=== PATIENT | female | born 1960 | race Caucasian/White ===

== ENCOUNTER 2018-07-22 19:17 | Emergency (ER) | payer OTHER ==
[2018-07-22] MEDS ORDERED: solu-MEDROL 125 MG IV ONE (19:33)
[2018-07-22] MEDS ORDERED: DUONEB 0.5-3 MG/3 ml Neb IH ONE ×2 (19:33→19:45)
[2018-07-22] MEDS ORDERED: solu-MEDROL 125 MG ONE (19:40)
[2018-07-22 19:57] LABS: Hematocrit 30.2 % (35-47); Hemoglobin 10.4 gm/dl (12.0-16.0); Mean Cell Volume 101.7 fl (78-100); Mean Corpuscular Hgb Concent. 34.4 g/dl (32-36); Mean Platelet Volume 9.3 fl (6-9.5); Platelet Count 251 K/mm3 (150-450); Red Blood Count 2.97 M/mm3 (4.1-5.4); Red Cell Distribution Width 12.6 % (11.5-14.0); White Blood Count 14.8 K/mm3 (4.0-10.5)
[2018-07-22 20:10] LABS: Appearance CLEAR (CLEAR); Bilirubin NEGATIVE (NEGATIVE); Blood NEGATIVE Ery/ul (0-5); Glucose NEGATIVE (NEGATIVE); Ketones NEGATIVE (NEGATIVE); Leukocyte Esterase NEGATIVE (NEGATIVE); Nitrite NEGATIVE (NEGATIVE); Protein,Urine Dip NEGATIVE (Negative); Specific Gravity 1.012 (1.005-1.025); Urobilinogen NEGATIVE mg/dL (0-1)
[2018-07-22 20:23] LABS: ALBUMIN 2.6 g/dL (3.5-5.0); ALKALINE PHOSPHATASE 89 U/L (38-126); ANION GAP 15.6 MEQ/L (5-15); BLOOD UREA NITROGEN 12 mg/dL (7-17); CHLORIDE 85 mmol/L (98-107); Calcium 8.1 mg/dL (8.4-10.2); Carbon Dioxide 26 mmol/L (22-30); Creatinine 1 0.29 mg/dL (0.52-1.04); Glucose 84 mg/dL (74-106); NT PRO BNP 1480 pg/mL (0-900); SGOT/AST 24 U/L (14-36); SGPT/ALT 16 U/L (0-35); SODIUM 123 mmol/L (137-145); Total Protein 6.1 g/dL (6.3-8.2)
[2018-07-22] MEDS ORDERED: Lasix 40 MG/4 ML IV ONE (20:33)
[2018-07-22] MEDS ORDERED: Klor Con 10 MEQ PO ONE ×2 (20:33→20:37)
[2018-07-22] MEDS ORDERED: Lasix 40 MG/4 ML ONE (20:37)
[2018-07-22] MEDS ORDERED: PROVENTIL 2.5 MG/3 ML NEB IH ONE ×2 (22:36→22:43)
[2018-07-22 23:31] VITALS: BP 142/79; O2SAT 95
[2018-07-22 23:48] VITALS: PULSE 92
[2018-07-23] MEDS ORDERED: LEVOFLOXACIN 750MG/150ML D5W 750 MG/150 ML BAG IV STA (01:00)
[2018-07-23] MEDS ORDERED: LEVOFLOXACIN 750MG/150ML D5W 750 MG/150 ML BAG IV ONE (01:04)
--- NOTE | 2018-07-23 01:25 | ERPHSYRPT ---
- History of Present Illness Source: patient Exam Limitations: no limitations Patient Subjective Stated Complaint: Pt c/o swelling and redness to RLE for "a couple days", denies fever. Denies sob/coughing prior to EMS giving pt duoneb after finding her to spo2 at 88% on room air. Pt states after tx she nows feels "like she needs to cough something up" Triage Nursing Assessment: pink/warm/dry, resp easy occassional wet cough noted , gait not observed at this time, a&o4, pitting edema to BLE noted with healing bruises. Redness noted to kia maza areas. Physician History: Pt is a 58 y/o female that presented to the ED with EMT, as her boyfriend called them. Pt denies complains, and states, no use of O2 at home, no complains. She states, her boyfriend states, her legs are swollen and is just "too concerned about me". Timing/Duration: today Activities at Onset: none Severity of Dyspnea-Max: moderate Severity of Dyspnea-Current: moderate Modifying Factors: Improves With: nothing Associated Symptoms: edema, loss of appetite, wheezing, leg swelling Allergies/Adverse Reactions: shellfish derived Allergy (Severe, Verified 07/22/18 23:51) Penicillins Allergy (Verified 07/22/18 19:18) Swelling strawberry Allergy (Verified 07/22/18 23:51) Hx Tetanus, Diphtheria Vaccination/Date Given: No Hx Influenza Vaccination/Date Given: No Hx Pneumococcal Vaccination/Date Given: No Immunizations Up to Date: No - Review of Systems Constitutional: Lethargy, Weakness, Weight Loss Eyes: No Symptoms Ears, Nose, & Throat: No Symptoms Respiratory: Cyanosis, Dyspnea, Dyspnea on Exertion (FERRARI), Wheezing Cardiac: Edema Abdominal/Gastrointestinal: No Abdominal Pain, No Nausea, No Vomiting, No Diarrhea Genitourinary Symptoms: No Dysuria Musculoskeletal: No Back Pain, No Neck Pain Neurological: No Dizziness, No Focal Weakness, No Sensory Changes - Past Medical History Pertinent Past Medical History: Yes Cardiac History: Hypertension Respiratory History: COPD - Past Surgical History Past Surgical History: Yes - Social History Smoking Status: Current every day smoker Exposure to second hand smoke: Yes Drug Use: none Patient Lives Alone: No - Female History Hx Now: No - Nursing Vital Signs Nursing Vital Signs: Initial Vital Signs Temperature 98.4 F 07/22/18 19:21 Pulse Rate 96 H 07/22/18 19:21 Respiratory Rate 18 07/22/18 19:21 Blood Pressure 151/85 07/22/18 19:21 O2 Sat by Pulse Oximetry 94 L 07/22/18 19:21 Pain Scale Pain Intensity 0 - Physical Exam General Appearance: moderate distress, lethargy, cachetic Eye Exam: PERRL/EOMI Ears, Nose, Throat Exam: hearing grossly normal Neck Exam: normal inspection, supple Respiratory Exam: respiratory distress, wheezing Cardiovascular/Chest Exam: edema Abdominal/Gastrointestinal Exam: soft, No tenderness, No distention, No mass Extremity Exam: pedal edema, slow capillary refill, swelling Neurologic Exam: alert, oriented x 3, cooperative, color television console monitor II-XII nml as tested, sensation nml, No motor deficits Skin Exam: ecchymosis (secondary to previous fall) SpO2 Interpretation: hypoxic SpO2: 95 O2 Delivery: Nasal Cannula - Course Nursing assessment & vital signs reviewed: Yes EKG Interpreted by Me: RATE ([id number]) Rhythm Strip: 1st degree block - CT Exams Chest CT Interpretation: Tele-radiologist Report (R mainstem bronchus is occluded. L lower lobe bronchus is occluded. RLL consalidation) - Radiology Ultrasound Exam Left Venous Lower Extremity Ultrasound: Other (No DVT) Right Venous Lower Extremity Ultrasound: Other (No DVT) Left Arterial Lower Extremity Ultrasound: Other (Normal RENEE flow) Right Arterial Lower Extremity Ultrasound: Other (Normal RENEE flow.) Ordered Tests: Active Orders 24 hr Category Date Time Status Mds Nurse STAT Care 07/22/18 19:31 Active EKG-ER Only STAT Care 07/22/18 19:31 Active Fontaine [Catheter-[place] Fontaine] STAT Care 07/22/18 19:47 Active IV Insertion STAT Care 07/22/18 19:31 Active Oxygen-ED Only Nasal Cannula 2 lpm Care 07/22/18 19:31 Active RENEE/LIMB PRESSURES BILATERAL [US] Stat Exams 07/22/18 23:26 Taken CHEST WITHOUT CONTRAST [CT] Stat Exams 07/22/18 23:55 Taken VENOUS BILATERAL EXTREMITY [US] Stat Exams 07/22/18 23:27 Taken CBC W DIFF Stat Lab 07/22/18 19:56 Completed CMP Stat Lab 07/22/18 19:56 Completed D-DIMER QUANTITATION Stat Lab 07/22/18 19:56 Completed Lactic Acid Stat Lab 07/23/18 01:13 Ordered Manual Differential NC Stat Lab 07/22/18 19:56 Completed NT PRO BNP Stat Lab 07/22/18 19:56 Completed UA W/RFX UR CULTURE Stat Lab 07/22/18 19:56 Completed Respiratory Therapy Assessment DAILY RT 07/22/18 19:51 Active Medication Summary Generic Name Dose Route Start Last Admin Trade Name Perryq PRN Reason Stop Dose Admin Levofloxacin/Dextrose 750 mg in 150 mls @ 100 mls/hr 07/23/18 01:00 07/23/18 01:05 Levofloxacin 750mg/150ml D5w IV 07/23/18 02:29 100 mls/hr STAT STA Administration Discontinued Medications Generic Name Dose Route Start Last Admin Trade Name Freq PRN Reason Stop Dose Admin Albuterol Sulfate 2.5 mg 07/22/18 22:36 07/22/18 22:46 Proventil 2.5 Mg/3 Ml Neb IH 07/22/18 22:37 2.5 mg STAT ONE Administration Albuterol Sulfate Confirm 07/22/18 22:43 Proventil 2.5 Mg/3 Ml Neb Administered 07/22/18 22:44 Dose 2.5 mg IH .STK-MED ONE Albuterol/Ipratropium 3 ml 07/22/18 19:33 07/22/18 19:46 Duoneb 0.5-3 Mg/3 Ml Neb IH 07/22/18 19:34 3 ml STAT ONE Administration Albuterol/Ipratropium Confirm 07/22/18 19:45 Duoneb 0.5-3 Mg/3 Ml Neb Administered 07/22/18 19:46 Dose 3 ml IH .STK-MED ONE Furosemide 40 mg 07/22/18 20:33 07/22/18 20:38 Lasix 40 Mg/4 Ml IV 07/22/18 20:34 40 mg STAT ONE Administration Furosemide Confirm 07/22/18 20:37 Lasix 40 Mg/4 Ml Administered 07/22/18 20:38 Dose 40 mg .ROUTE .STK-MED ONE Levofloxacin/Dextrose Confirm 07/23/18 01:04 Levofloxacin 750mg/150ml D5w Administered 07/23/18 01:05 Dose 750 mg in 150 mls @ ud IV .STK-MED ONE Methylprednisolone Sodium Succinate 125 mg 07/22/18 19:33 07/22/18 19:42 Solu-Medrol 125 Mg IV 07/22/18 19:34 125 mg STAT ONE Administration Methylprednisolone Sodium Succinate Confirm 07/22/18 19:40 Solu-Medrol 125 Mg Administered 07/22/18 19:41 Dose 125 mg .ROUTE .STK-MED ONE Potassium Chloride 40 meq 07/22/18 20:33 07/22/18 20:38 Klor Con 10 Meq PO 07/22/18 20:34 40 meq STAT ONE Administration Potassium Chloride Confirm 07/22/18 20:37 Klor Con 10 Meq Administered 07/22/18 20:38 Dose 40 meq PO .STK-MED ONE Lab/Rad Data: Laboratory Result Diagrams 07/22/18 19:56 07/22/18 19:56 Laboratory Results 07/22/18 07/22/18 07/22/18 Range/Units 19:56 19:56 19:56 WBC (4.0-10.5) K/mm3 RBC (4.1-5.4) M/mm3 Hgb (12.0-16.0) gm/dl Hct (35-47) % MCV (78-100) fl MCH (26-32) pg MCHC (32-36) g/dl RDW (11.5-14.0) % Plt Count (150-450) K/mm3 MPV (6-9.5) fl D-Dimer 1306 H* (215-500) ng/mL Sodium 123 L (137-145) mmol/L Potassium 3.0 L (3.5-5.1) mmol/L Chloride 85 L (98-107) mmol/L Carbon Dioxide 26 (22-30) mmol/L Anion Gap 15.6 H (5-15) MEQ/L BUN 12 (7-17) mg/dL Creatinine 0.29 L (0.52-1.04) mg/dL Estimated GFR > 60.0 ML/MIN Glucose 84 (74-106) mg/dL Calcium 8.1 L (8.4-10.2) mg/dL Total Bilirubin 0.50 (0.2-1.3) mg/dL AST 24 (14-36) U/L ALT 16 (0-35) U/L Alkaline Phosphatase 89 (38-126) U/L NT-Pro-B Natriuret Pep 1480 H (0-900) pg/mL Serum Total Protein 6.1 L (6.3-8.2) g/dL Albumin 2.6 L (3.5-5.0) g/dL Urine Color YELLOW (YELLOW) Urine Appearance CLEAR (CLEAR) Urine pH 5.0 (5-6) Ur Specific [place] 1.012 (1.005-1.025) Urine Protein NEGATIVE (Negative) Urine Ketones NEGATIVE (NEGATIVE) Urine Blood NEGATIVE (0-5) Leonardo/ul Urine Nitrite NEGATIVE (NEGATIVE) Urine Bilirubin NEGATIVE (NEGATIVE) Urine Urobilinogen NEGATIVE (0-1) mg/dL Ur Leukocyte Esterase NEGATIVE (NEGATIVE) Urine WBC (Auto) NONE (0-5) /HPF Urine RBC (Auto) NONE (0-2) /HPF U Epithel Cells (Auto) NONE (FEW) /HPF Urine Bacteria (Auto) NONE (NEGATIVE) /HPF Urine Culture Reflexed NO (NO) Urine Glucose NEGATIVE (NEGATIVE) mg/dL 07/22/18 Range/Units 19:56 WBC 14.8 H (4.0-10.5) K/mm3 RBC 2.97 L (4.1-5.4) M/mm3 Hgb 10.4 L (12.0-16.0) gm/dl Hct 30.2 L (35-47) % MCV 101.7 H (78-100) fl MCH 35.0 H (26-32) pg MCHC 34.4 (32-36) g/dl RDW 12.6 (11.5-14.0) % Plt Count 251 (150-450) K/mm3 MPV 9.3 (6-9.5) fl D-Dimer (215-500) ng/mL Sodium (137-145) mmol/L Potassium (3.5-5.1) mmol/L Chloride (98-107) mmol/L Carbon Dioxide (22-30) mmol/L Anion Gap (5-15) MEQ/L BUN (7-17) mg/dL Creatinine (0.52-1.04) mg/dL Estimated GFR ML/MIN Glucose (74-106) mg/dL Calcium (8.4-10.2) mg/dL Total Bilirubin (0.2-1.3) mg/dL AST (14-36) U/L ALT (0-35) U/L Alkaline Phosphatase (38-126) U/L NT-Pro-B Natriuret Pep (0-900) pg/mL Serum Total Protein (6.3-8.2) g/dL Albumin (3.5-5.0) g/dL Urine Color (YELLOW) Urine Appearance (CLEAR) Urine pH (5-6) Ur Specific [place] (1.005-1.025) Urine Protein (Negative) Urine Ketones (NEGATIVE) Urine Blood (0-5) Leonardo/ul Urine Nitrite (NEGATIVE) Urine Bilirubin (NEGATIVE) Urine Urobilinogen (0-1) mg/dL Ur Leukocyte Esterase (NEGATIVE) Urine WBC (Auto) (0-5) /HPF Urine RBC (Auto) (0-2) /HPF U Epithel Cells (Auto) (FEW) /HPF Urine Bacteria (Auto) (NEGATIVE) /HPF Urine Culture Reflexed (NO) Urine Glucose (NEGATIVE) mg/dL - Progress Progress: improved Air Movement: fair Progress Note: 07/23/18 01:29 Pt was evaluated. Lasix IV was given for edema and elevated BNP. Solu Medrol and Duo nebs were given for wheezing. Levaquin IV was given. Pt was placed on O2 NC for hypoxia. D Dimer was elevated, but could not do PE study, secondary to shellfish allergy. CT showed occluded b/l bronchus. Might be mass. Post obstructive PNA is a possibility. Dr. [facility]. Discussed with : Seth Will see patient in: other (Transfer to [facility]. Dr Raya is accepting.) - Departure Departure Disposition: Transfer Clinical Impression: COPD with hypoxia Condition: Fair Critical Care Time: No Referrals: SHANDA ESCALONA [Primary Care Provider] - Instructions: Chronic Obstructive Pulmonary Disease Additional Instructions: Pt will be transferred to [facility]. Dr Raya is accepting.
[2018-07-23 03:32] LABS: BAND 1 % (0.0-2.0); Eosinophil 1 % (0.00-3.0); Lymphocytes 19 % (24-44); Monocyte 1 % (0.0-12.0); Myelocyte 1 %; Neutrophils 76 % (36.0-66.0); Platelet Estimate NORMAL (NORMAL); Promyelocyte 1 %; Total Cells Counted 100
--- NOTE | 2018-07-23 08:44 | XRAY ---
Indication: Bilateral leg edema. Two-dimensional sonogram and color Doppler imaging of the major venous vessels of left and right leg was performed. Comparison: None No thrombus seen in the examined deep venous vessels of the left and right leg including greater saphenous veins. Veins demonstrate normal compressibility. Venous waveforms are normal with and without augmentation. Incidental 5.9 x 1.4 x 2.5 cm right and 3.5 x 1.0 x 2.5 cm left Villarreal's cysts. Impression: 1. Left and right legs negative for DVT. 2. Incidental bilateral Villarreal's cysts. Comment: Preliminary report was given.
--- NOTE | 2018-07-23 08:46 | XRAY ---
Indication: Cool extremities. Bilateral ankle brachial index exam performed. Comparison: None Right arm brachial pressure is 130. Right ankle pressure is 130. Ankle-brachial index is 1.0, normal. Left arm brachial pressure is 129. Left ankle pressure is 142. Ankle brachial index is 1.09, normal. Impression: Left and right ankle brachial indices are normal. Comment: Preliminary report was given.
--- NOTE | 2018-07-23 08:56 | XRAY ---
Indication: Short of breath. COPD. Multiple contiguous axial images obtained through the chest without contrast as ordered. Comparison: None Right lower and left lower lobe bronchi are occluded with near complete right lower lobe consolidation, probable postobstructive atelectasis. Mass not completely excluded. Mild right middle, lingula, and left lower lobe subsegmental atelectasis/scarring. Small right effusion and right lower lobe calcified granuloma. Small patchy left upper lobe airspace opacity anteriorly. Heart is not enlarged. Aorta is mildly arteriosclerotic without aneurysmal dilatation. A few mediastinal and right perihilar calcified nodes. Small hiatal hernia. Bony thorax demonstrates osteopenia and mild multilevel degenerative spondylosis. Limited upper abdomen demonstrates fatty liver and tiny calcified splenic granulomas. Impression: 1. Left and right lower lobe bronchi occlusion. Rule out mucus plugging versus endobronchial masses. 2. Near complete right lower lobe consolidation, probable postobstructive atelectasis. Lung mass not completely excluded. Also small right effusion. 3. Patchy left upper lobe airspace disease. 4. Mild right middle lobe, lingula, and left lower lobe subsegmental atelectasis/scarring. 5. Incidental fatty liver, small hiatal hernia, and evidence for old granulomatous disease. Comment: Preliminary interpretation was made by [facility]. No critical discrepancy. CTDI 9.79
== END 2018-07-23 02:55 | disposition short-term general hospital (02) ==
LOC: ED 19:17
DX: J44.9 Chronic obstructive pulmonary disease, unspecified (principal); R09.02 Hypoxemia; I10 Essential (primary) hypertension
CPT/HCPCS: 36000; 36415; 51702; 71250; 80053; 81001; 83605; 83880; 85025; 85379; 93005; 93041; 93922; 93970; 94640; 96365; 96374; 96375; 99285; J1940; J1956; J2930; J7609; A9270-GY

== ENCOUNTER 2018-08-12 10:52 | Inpatient (IN) | payer OTHER ==
[2018-08-12] MEDS ORDERED: Colace 100 MG PO PRN (11:51)
[2018-08-12] MEDS ORDERED: Sodium Chloride 0.9% 10 ML FLUSH Syringe IV PRN (12:00)
[2018-08-12 12:15] LABS: A-aADO2 83; ABG HEMOGLOBIN 19.8; ARTERIAL BLD GAS O2 SATURATION 97.5 % (95-100); ARTERIAL BLOOD GAS BASE EXCESS 0.1 (-2.0-2.0); ARTERIAL BLOOD GAS FIO2 28 %; ARTERIAL BLOOD GAS PCO2 32 mmHg (35-45); ARTERIAL BLOOD GAS PO2 77 mmHg (75-100); ARTERIAL BLOOD GAS pH 7.46 (7.35-7.45); CARBOXYHEMOGLOBIN 3.2 % THgb (0.0-6.9); HCO3- 22.8 (22-28); HGB O2 SAT 93.9 g/dF (94-100); Lactic Acid 1.1 (0.4-2.0); Methhemoglobin 0.5 % (1.4-1.5); paO2 pAO1 0.48
[2018-08-12 12:16] LABS: ABG POTASSIUM 2.5 (3.5-5.1); ABG SITE LEFT RADIAL; ALLEN TEST OK? Yes
[2018-08-12 12:51] LABS: BASOPHIL % 0.1 % (0.0-0.4); Basophil (Absolute #) 0.02 (0-0.4); Eosinophil % 0.6 % (0.00-5.0); Eosinophil (Absolute #) 0.08 (0-0.5); Granulocyte Absolute (ANC) 11.77 (1.4-6.9); Granulocytes % 85.6 % (36.0-66.0); Hemoglobin 9.8 gm/dl (12.0-16.0); Lymphocyte (Absolute #) 0.84 (1.0-4.6); Lymphocytes % 6.1 % (24.0-44.0); Mean Cell Volume 97.9 fl (78-100); Mean Platelet Volume 9.8 fl (6-9.5); Monocytes % 7.6 % (0.0-12.0); Platelet Count 352 K/mm3 (150-450); Red Blood Count 2.86 M/mm3 (4.1-5.4); Red Cell Distribution Width 12.9 % (11.5-14.0); White Blood Count 13.8 K/mm3 (4.0-10.5)
--- NOTE | 2018-08-12 12:56 | XRAY ---
Indication: Hypoxia. Lung mass. Comparison: None PA/lateral chest hyperinflated with moderate right costophrenic angle blunting, right base masslike opacity, and right middle lobe subsegmental atelectasis/scarring. CT chest with contrast may yield further information. Remaining heart and left lung unremarkable. Bony thorax intact.
[2018-08-12 12:58] LABS: Mean Corpuscular Hemoglobin 34.2 pg (26-32)
[2018-08-12] MEDS: Sodium Chloride 0.9% 1000 ML 1,000 ML IV SCH (12:58)
[2018-08-12 13:16] LABS: ALBUMIN 2.6 g/dL (3.5-5.0); ALKALINE PHOSPHATASE 111 U/L (38-126); ANION GAP 15.4 MEQ/L (5-15); BLOOD UREA NITROGEN 12 mg/dL (7-17); CHLORIDE 88 mmol/L (98-107); Calcium 7.9 mg/dL (8.4-10.2); Carbon Dioxide 24 mmol/L (22-30); Creatinine 1 0.45 mg/dL (0.52-1.04); Glucose 79 mg/dL (74-106); NT PRO BNP 4600 pg/mL (0-900); SGOT/AST 42 U/L (14-36); SGPT/ALT 19 U/L (0-35); SODIUM 125 mmol/L (137-145); Total Protein 6.4 g/dL (6.3-8.2)
[2018-08-12 13:19] LABS: Potassium 2.8 mmol/L (3.5-5.1)
[2018-08-12] MEDS: POTASSIUM CHLORIDE 20 mEq IN WATER 100ML 20 MEQ/100 ML BAG IV SCH ×2 (13:19→16:33)
[2018-08-12] MEDS ORDERED: Magnesium Sulfate 1 GM/2 ML VIAL IV ONE (14:10)
[2018-08-12] MEDS: Sodium Chloride 0.9% 10 ML FLUSH Syringe IV SCH ×2 (14:23→22:06)
[2018-08-12] MEDS ORDERED: Magnesium Sulfate 1 GM/2 ML VIAL*** 2 GM in Sodium Chloride 0.9% 100 ML IVPB 100 ML IV ONE (14:30)
[2018-08-12] MEDS ORDERED: Ventolin Hfa MDI IH PRN (14:53)
[2018-08-12] MEDS ORDERED: PROVENTIL COMMON CANISTER IH PRN (14:56)
[2018-08-12] MEDS: DUONEB 0.5-3 MG/3 ml Neb IH SCH ×3 (15:04→23:19)
[2018-08-12] MEDS: Levofloxacin 500MG/100ML D5W 500 MG/100 ML BAG IV SCH (16:33)
[2018-08-12] MEDS: Advair Hfa 230/21 Mcg COMMON CANISTER IH SCH (18:45)
[2018-08-12] MEDS: Magnesium 1 Gm / 100 Ml D5W*** 100 ML IV SCH ×2 (23:17→23:51)
[2018-08-13] MEDS: POTASSIUM CHLORIDE 20 mEq IN WATER 100ML 20 MEQ/100 ML BAG IV SCH ×2 (00:32→02:39)
[2018-08-13] MEDS: DUONEB 0.5-3 MG/3 ml Neb IH SCH ×6 (03:28→22:46)
[2018-08-13] MEDS: Sodium Chloride 0.9% 1000 ML 1,000 ML IV SCH ×2 (05:12→17:18)
[2018-08-13] MEDS: Sodium Chloride 0.9% 10 ML FLUSH Syringe IV SCH ×2 (05:12→14:24)
[2018-08-13 06:31] LABS: BASOPHIL % 0.1 % (0.0-0.4); Basophil (Absolute #) 0.01 (0-0.4); Eosinophil % 1.1 % (0.00-5.0); Granulocyte Absolute (ANC) 7.33 (1.4-6.9); Granulocytes % 80.2 % (36.0-66.0); Hematocrit 22.4 % (35-47); Lymphocyte (Absolute #) 0.79 (1.0-4.6); Lymphocytes % 8.7 % (24.0-44.0); Mean Cell Volume 98.7 fl (78-100); Mean Corpuscular Hemoglobin 34.3 pg (26-32); Mean Corpuscular Hgb Concent. 34.8 g/dl (32-36); Mean Platelet Volume 9.3 fl (6-9.5); Monocytes % 9.9 % (0.0-12.0); Platelet Count 306 K/mm3 (150-450); Red Blood Count 2.27 M/mm3 (4.1-5.4); Red Cell Distribution Width 13.1 % (11.5-14.0); White Blood Count 9.1 K/mm3 (4.0-10.5)
[2018-08-13] MEDS ORDERED: Spiriva 18 Mcg/Cap Inhaler IH ONE (06:32)
[2018-08-13] MEDS: Advair Hfa 230/21 Mcg COMMON CANISTER IH SCH ×2 (06:37→19:09)
[2018-08-13] MEDS: Spiriva 18 Mcg/Cap Inhaler IH SCH (06:38)
[2018-08-13 07:03] LABS: Hemoglobin 7.8 gm/dl (12.0-16.0)
[2018-08-13 07:33] LABS: ANION GAP 10.3 MEQ/L (5-15); BLOOD UREA NITROGEN 8 mg/dL (7-17); CHLORIDE 93 mmol/L (98-107); Calcium 7.4 mg/dL (8.4-10.2); Carbon Dioxide 24 mmol/L (22-30); Creatinine 1 0.37 mg/dL (0.52-1.04); Glucose 99 mg/dL (74-106); Potassium 3.4 mmol/L (3.5-5.1); SODIUM 124 mmol/L (137-145)
--- NOTE | 2018-08-13 08:50 | XRAY ---
Indication: Short of breath. Elevated d-dimer. Patient received 5.3 mCi technetium 99 MAA for the perfusion portion of the exam. Patient inhaled 33.6 mCi of aerosolized technetium 99 DTPA for the ventilation portion of the exam. Multi planar images obtained. Comparison: None Perfusion images demonstrates focus of diminished perfusion in the right base. No other perfusion defects. Ventilation images demonstrates corresponding ventilation defect in the right base. No other ventilation defects. Incidental small amount of radiopharmaceutical activity in the GI system. Same day chest radiograph demonstrates right base pleural-parenchymal opacity corresponding to the ventilation defect and diminished perfusion. Impression: Matching right base ventilation defect and diminished perfusion corresponding to the chest radiograph abnormality. PIOPED criteria is low probability for pulmonary embolus.
--- NOTE | 2018-08-13 09:09 | HP ---
HISTORY OF PRESENT ILLNESS: This 58 year-old patient of mine who presented to the clinic complaining of shortness of breath. She had recently been at [facility] after having lung mass found. She was seen by Dr. Jasper Blas there but left sooner than they would have liked. She was hyponatremic there as well. The patient has a history of tobacco use and also alcohol use. She presented to the clinic with her friend, Adam. They reported increasing shortness of breath with exertion, unstable ambulation, weight loss and cough. The patient reports this morning that she has some appetite although she has not eaten much yet. She is interested in seeing a industrial gas fitter to talk about changing her diet. The patient was going to be seen by Dr. Jasper Blas yesterday but she was getting a VQ scan for an elevated D-dimer when he was here to see her and so he plans to see her later in the hospital stay. The patient reports that she feels like her shortness of breath is better. She has been on bed rest. She thinks her cough is better. She is asking about going home. REVIEW OF SYSTEMS: She has had no abdominal pain. No nausea or vomiting. No diarrhea. She had the cough and shortness of breath. No chest pain. No lower extremity edema. MEDICATIONS: Please see the home medication reconciliation form which I have reviewed. ALLERGIES: ADACEL, PENICILLIN, TDAP. SHELLFISH, STRAWBERRY. PAST MEDICAL HISTORY: Asthma, chronic obstructive pulmonary disease, hypertension. Lung mass and pneumonia June 2018. Weight loss June 2018. Alcohol use. PAST SURGICAL HISTORY: Tonsillectomy. Adenoidectomy. SOCIAL HISTORY: She reports to me today that she only smoked a half a pack of cigarettes per day for two years and that she has quit for a few weeks now. Her boyfriend lives with her. She has sisters in [facility] and reports one plans to come see her today. She does not have any children. Alcohol: She reports drinking 0 to 6 beers per day. She denies any history of alcohol withdrawal. FAMILY HISTORY: Noncontributory. PHYSICAL EXAMINATION: VITAL SIGNS: Temperature current 98.7F, temperature max 99.1F, heart rate 84 to 94, respiratory rate 24, blood pressure 112/60, weight 48.4 kg. Oxygen saturation 90% on room air, 92 to 100% on 2 liters nasal cannula. GENERAL: The patient is lying in bed a pleasant talkative lady in no acute distress. She is thin and cachectic. CVS: She has a regular rate and rhythm. No murmurs, gallops or rubs are appreciated. CHEST: Clear to auscultation bilaterally. No crackles or wheezes. Very slight cough, equal breath sounds. ABDOMEN: Soft, nontender, nondistended with normal bowel sounds. EXTREMITIES: No clubbing, cyanosis or edema. LABORATORY DATA AND TESTS: Her white blood cell count was 13,800 on admission, 9,100 today. Hemoglobin 9.8 on admission and 7.8 today. PLT count was normal. D-dimer was 1,291. ABG with pH 7.46, pCO2 33, pO2 77. Sodium 125 on admission and 124 today. Chloride 88 on admission and 93 today. Potassium 2.8 on admission and 3.4 today. Magnesium 1.0 on admission and 2.1 today. BNP 4,600. Albumin 2.6. EKG sinus rhythm with nonspecific T-wave changes. VQ scan was read as low probability of pulmonary embolism with a small non-segmental perfusion defect in the right lung base. Chest x-ray was read as hyperinflated with moderate right costophrenic angle blunting, right base mass-like opacity and right middle lobe subsegmental atelectasis/scarring. Please see the radiologist dictation for the full report. ASSESSMENT AND PLAN: 1) LUNG MASS: Again, Dr. Jasper Blas has been consulted. When she was at [facility] they wanted to do a biopsy of this but she desired to go home at that time. She may need to follow up with a cardiovascular surgeon as an outpatient. 2) HYPOXIA: In the clinic her fingernail beds had been blue and they are pink today. She is saturating normally on 2 liters nasal cannula. She most likely will need home oxygen. 3) CHRONIC OBSTRUCTIVE PULMONARY DISEASE: We are continuing her home medication. 4) RIGHT LOWER LOBE PNEUMONIA: Given her elevated white blood cell count and hypoxia she was started on levofloxacin. 5) HYPONATREMIA: I have ordered a urine sodium and urine osmolality. Her sodium is about the same as it was yesterday and may be due to syndrome of inappropriate antidiuretic hormone secretion. 6) ALCOHOL ABUSE: She denies any signs of withdrawal in the past and has no signs of withdrawal at this time. 7) GAIT INSTABILITY: Will try to have her walk today and have PT access her. 8) WEIGHT LOSS: It may be multifactorial due to hospital counseling with the lung mass and poor oral intake as well as alcohol use. 9) ELEVATED D-DIMER: VQ scan was checked and was low probability for pulmonary embolism. She could not have the CT scan with contrast due to her shellfish allergy. 10) ANEMIA: Check iron levels and Vit B 12 levels.
[2018-08-13 09:17] LABS: Iron 18 ug/dL (37-170); Iron Saturation 13 % (20-39); TIBC 138 ug/dL (265-462)
[2018-08-13] MEDS ORDERED: NON-FORMULARY ITEM (Cetirizine Hcl [All Day Allergy] 10 MG) PO SCH (10:00)
[2018-08-13] MEDS ORDERED: NON-FORMULARY ITEM (Fluticasone Propionate [Flovent Diskus] 50 MCG) IH SCH (10:00)
[2018-08-13] MEDS: MAG-OX 400 PO SCH (10:09)
[2018-08-13] MEDS: THERAGRAN MULTIVITAMIN PO SCH (10:10)
[2018-08-13] MEDS: VITAMIN B-1 100 MG PO SCH (10:10)
[2018-08-13] MEDS: CLARITIN 10 MG PO SCH (10:10)
[2018-08-13] MEDS: Klor Con 10 MEQ PO SCH ×2 (10:10→21:53)
[2018-08-13] MEDS: Levofloxacin 500MG/100ML D5W 500 MG/100 ML BAG IV SCH (10:15)
[2018-08-13 11:33] LABS: Ferritin 439 ng/mL (11.1-264); Vitamin B12 759 pg/mL (239-931)
[2018-08-13] MEDS: FEOSOL 325 MG PO SCH ×2 (13:51→21:54)
[2018-08-14] MEDS: DUONEB 0.5-3 MG/3 ml Neb IH SCH ×6 (03:07→22:57)
[2018-08-14 05:58] LABS: BASOPHIL % 0.3 % (0.0-0.4); Basophil (Absolute #) 0.02 (0-0.4); Eosinophil % 1.9 % (0.00-5.0); Eosinophil (Absolute #) 0.15 (0-0.5); Granulocytes % 73.9 % (36.0-66.0); Hematocrit 22.7 % (35-47); Hemoglobin 7.8 gm/dl (12.0-16.0); Lymphocyte (Absolute #) 0.99 (1.0-4.6); Lymphocytes % 12.8 % (24.0-44.0); Mean Cell Volume 98.7 fl (78-100); Mean Corpuscular Hemoglobin 33.9 pg (26-32); Mean Corpuscular Hgb Concent. 34.4 g/dl (32-36); Mean Platelet Volume 9.4 fl (6-9.5); Monocytes % 11.1 % (0.0-12.0); Platelet Count 273 K/mm3 (150-450); Red Cell Distribution Width 13.2 % (11.5-14.0); White Blood Count 7.7 K/mm3 (4.0-10.5)
[2018-08-14 07:01] LABS: ANION GAP 10.9 MEQ/L (5-15); BLOOD UREA NITROGEN 6 mg/dL (7-17); CHLORIDE 93 mmol/L (98-107); Calcium 7.6 mg/dL (8.4-10.2); Carbon Dioxide 22 mmol/L (22-30); Creatinine 1 0.33 mg/dL (0.52-1.04); Glucose 86 mg/dL (74-106); Potassium 3.3 mmol/L (3.5-5.1); SODIUM 123 mmol/L (137-145)
[2018-08-14] MEDS: Spiriva 18 Mcg/Cap Inhaler IH SCH (07:02)
[2018-08-14] MEDS: Advair Hfa 230/21 Mcg COMMON CANISTER IH SCH ×2 (07:02→20:27)
--- NOTE | 2018-08-14 08:55 | PCM.NOTE ---
Date and Time: 08/14/18 0849 Subjective Assessment: Patient denies any pain. States her breathing is ok and cough is getting better. She drank her Ensure shake this AM and states she ate more breakfast than she usually does (1/4 of a bisquit had been eaten). Basin Operator and physical therapist saw her. PT said she was a "minimal assist +2". I called Dr. Blas today. He states our Radiology department had not been able to upload her chest CT from June to the cloud. He plans to see her here this afternoon and look at her chest CT then. Objective Exam General Appearance: no apparent distress, alert, cachetic, thin Neurologic Exam: alert, oriented x 3, cooperative, other (knows who the president of the is) Skin Exam: normal color, other (hands pale and cool; capillary refill 3 seconds in hands, 2 seconds in feet.) Respiratory Exam: normal breath sounds, lungs clear, airway intact, other (+ cough), No respiratory distress, No accessory muscle use, No crackles/rales, No rhonchi, No wheezing Cardiovascular Exam: regular rate/rhythm, normal heart sounds, No murmur, No friction rub, No gallop Gastrointestinal/Abdomen Exam: soft, normal bowel sounds, No tenderness, No distention, No mass, No guarding OBJECTIVE DATA Vital Signs: Vital Signs - 24 hr Temp Pulse Resp BP Pulse Ox 08/14/18 07:18 98.8 F 94 H 18 99/55 99 08/14/18 07:00 94 H 18 99 08/14/18 04:00 98.5 F 96 H 21 131/67 92 L 08/14/18 03:07 96 H 21 92 L 08/14/18 03:00 93 L 08/14/18 00:00 99.2 F 104 H 17 112/68 93 L 08/13/18 23:00 94 L 08/13/18 22:46 101 H 23 96 08/13/18 20:00 98.0 F 12 L 19 126/67 94 L 08/13/18 19:08 108 H 22 97 08/13/18 16:00 98.2 F 105 H 24 120/74 100 08/13/18 15:01 105 H 24 100 08/13/18 12:00 98.8 F 98 H 24 109/59 99 08/13/18 11:23 98 H 24 100 Oxygen-Last 24 hours O2 Percentage 2 Liters = 28% O2 Percentage 2 Liters = 28% O2 Percentage 2 Liters = 28% O2 Percentage 2 Liters = 28% O2 Percentage 2 Liters = 28% O2 Percentage 2 Liters = 28% O2 Percentage 2 Liters = 28% Pain Assessment - Last Documented Pain Intensity 0 Pain Scale Used FLACC Intake and Output: Intake & Output 08/12/18 08/13/18 08/14/18 08/15/18 06:59 06:59 06:59 06:59 Intake Total 1861 2253 Output Total 300 Balance 186 667 Weight 48.4 kg 48.4 kg Lab Results: Lab Results-Last 24 Hours 08/13/18 08/13/18 08/13/18 Range/Units 05:00 06:30 07:00 WBC (4.0-10.5) K/mm3 RBC (4.1-5.4) M/mm3 Hgb (12.0-16.0) gm/dl Hct (35-47) % MCV (78-100) fl MCH (26-32) pg MCHC (32-36) g/dl RDW (11.5-14.0) % Plt Count (150-450) K/mm3 MPV (6-9.5) fl Gran % (36.0-66.0) % Eos # (Auto) (0-0.5) Absolute Lymphs (auto) (1.0-4.6) Absolute Monos (auto) (0.0-1.3) Lymphocytes % (24.0-44.0) % Monocytes % (0.0-12.0) % Eosinophils % (0.00-5.0) % Basophils % (0.0-0.4) % Absolute Granulocytes (1.4-6.9) Basophils # (0-0.4) Sodium (137-145) mmol/L Potassium (3.5-5.1) mmol/L Chloride (98-107) mmol/L Carbon Dioxide (22-30) mmol/L Anion Gap (5-15) MEQ/L BUN (7-17) mg/dL Creatinine (0.52-1.04) mg/dL Estimated GFR ML/MIN Glucose (74-106) mg/dL Calcium (8.4-10.2) mg/dL Iron 18 L (37-170) ug/dL TIBC 138 L (265-462) ug/dL Iron Saturation 13 L (20-39) % Ferritin 439 H (11.1-264) ng/mL Vitamin B12 759 (239-931) pg/mL Urine Sodium 25 L (30-90) mmol/L 08/14/18 08/14/18 Range/Units 05:43 05:43 WBC 7.7 (4.0-10.5) K/mm3 RBC 2.30 L (4.1-5.4) M/mm3 Hgb 7.8 L (12.0-16.0) gm/dl Hct 22.7 L (35-47) % MCV 98.7 (78-100) fl MCH 33.9 H (26-32) pg MCHC 34.4 (32-36) g/dl RDW 13.2 (11.5-14.0) % Plt Count 273 (150-450) K/mm3 MPV 9.4 (6-9.5) fl Gran % 73.9 H (36.0-66.0) % Eos # (Auto) 0.15 (0-0.5) Absolute Lymphs (auto) 0.99 L (1.0-4.6) Absolute Monos (auto) 0.86 (0.0-1.3) Lymphocytes % 12.8 L (24.0-44.0) % Monocytes % 11.1 (0.0-12.0) % Eosinophils % 1.9 (0.00-5.0) % Basophils % 0.3 (0.0-0.4) % Absolute Granulocytes 5.70 (1.4-6.9) Basophils # 0.02 (0-0.4) Sodium 123 L (137-145) mmol/L Potassium 3.3 L (3.5-5.1) mmol/L Chloride 93 L (98-107) mmol/L Carbon Dioxide 22 (22-30) mmol/L Anion Gap 10.9 (5-15) MEQ/L BUN 6 L (7-17) mg/dL Creatinine 0.33 L (0.52-1.04) mg/dL Estimated GFR > 60.0 ML/MIN Glucose 86 (74-106) mg/dL Calcium 7.6 L (8.4-10.2) mg/dL Iron (37-170) ug/dL TIBC (265-462) ug/dL Iron Saturation (20-39) % Ferritin (11.1-264) ng/mL Vitamin B12 (239-931) pg/mL Urine Sodium (30-90) mmol/L Radiology Exams: Radiology Procedures Category Date Time Status CHEST 2 VIEWS (PA AND LAT) Routine Exams 08/12/18 12:38 Completed ECHO W/2D AND DOPPLER [US] Routine Exams 08/12/18 15:08 Taken PULMONARY PERF VENTILATION [NUCMED] Urgent Exams 08/12/18 14:32 Completed Assessment/Plan (1) Lung mass Current Visit: Yes Status: Acute Assessment & Plan: Awaiting Dr. Usman Blas's consult for next step for this. Her weight loss, poor appetite and low sodium are concerning to me for possible lung cancer. Patient was at [facility] when first diagnosed with the lung mass, but had wanted to go home and did not have a biopsy of the lung mass and then missed a follow up appointment with Dr. Blas. Code(s): R91.8 - OTHER NONSPECIFIC ABNORMAL FINDING OF LUNG FIELD (2) Hypoxia Current Visit: Yes Status: Acute Assessment & Plan: Will plan on home oxygen evaluation before discharge. Code(s): R09.02 - HYPOXEMIA (3) COPD with hypoxia Current Visit: No Status: Acute Assessment & Plan: Continue current treatment. Code(s): J44.9 - CHRONIC OBSTRUCTIVE PULMONARY DISEASE, UNSPECIFIED; R09.02 - HYPOXEMIA (4) Pneumonia Current Visit: Yes Status: Acute Qualifiers: Laterality: right Lung location: lower lobe of lung Assessment & Plan: Day 3 of levofloxacin. WBC normalized. A.febrile. Will plan on 7 day course of antibiotics. Code(s): J18.9 - PNEUMONIA, UNSPECIFIED ORGANISM (5) Hyponatremia Current Visit: Yes Status: Acute Assessment & Plan: Chronic in nature. Did not improve much when being given normal saline at 100 mL/hr. Urine study still pending. Concerning for SIADH. Code(s): E87.1 - HYPO-OSMOLALITY AND HYPONATREMIA (6) History of ETOH abuse Current Visit: Yes Status: Acute Assessment & Plan: No signs of alcohol withdrawal at this time. Code(s): F10.11 - ALCOHOL ABUSE, IN REMISSION (7) Gait instability Current Visit: Yes Status: Acute Assessment & Plan: Patient would most likely benefit from rehab, but she wants to go home. May be candidate for home health if she is agreeable. Code(s): R26.81 - UNSTEADINESS ON FEET (8) Weight loss Current Visit: Yes Status: Acute Assessment & Plan: Saw loading supervisor; taking ensure shakes; Encouraged increased oral intake. May be secondary to lung mass or alcohol use. (9) Anemia Current Visit: Yes Status: Acute Qualifiers: Anemia type: iron deficiency Assessment & Plan: Ferrous sulfate started. Will check stools for blood. Code(s): D64.9 - ANEMIA, UNSPECIFIED
[2018-08-14] MEDS: VITAMIN B-1 100 MG PO SCH (11:16)
[2018-08-14] MEDS: Levofloxacin 500MG/100ML D5W 500 MG/100 ML BAG IV SCH (11:16)
[2018-08-14] MEDS: MAG-OX 400 PO SCH (11:17)
[2018-08-14] MEDS: CLARITIN 10 MG PO SCH (11:17)
[2018-08-14] MEDS: THERAGRAN MULTIVITAMIN PO SCH (11:17)
[2018-08-14] MEDS: Klor Con 10 MEQ PO SCH ×2 (11:17→21:20)
[2018-08-14] MEDS: FEOSOL 325 MG PO SCH ×2 (11:17→21:20)
[2018-08-14 18:55] LABS: INR 1.46 (0.8-3.0); PROTIME 16.6 SECONDS (9.95-12.35)
[2018-08-14] MEDS: Sodium Chloride 0.9% 1000 ML 1,000 ML IV SCH (21:20)
[2018-08-15] MEDS: DUONEB 0.5-3 MG/3 ml Neb IH SCH ×5 (02:55→23:21)
[2018-08-15 06:01] LABS: Hematocrit 20.9 % (35-47); Hemoglobin 7.2 gm/dl (12.0-16.0); Mean Cell Volume 98.1 fl (78-100); Mean Corpuscular Hemoglobin 33.8 pg (26-32); Mean Corpuscular Hgb Concent. 34.4 g/dl (32-36); Mean Platelet Volume 9.3 fl (6-9.5); Platelet Count 274 K/mm3 (150-450); Red Blood Count 2.13 M/mm3 (4.1-5.4); Red Cell Distribution Width 13.2 % (11.5-14.0); White Blood Count 7.8 K/mm3 (4.0-10.5)
[2018-08-15 06:16] LABS: ANION GAP 10.6 MEQ/L (5-15); BLOOD UREA NITROGEN 5 mg/dL (7-17); CHLORIDE 93 mmol/L (98-107); Calcium 7.4 mg/dL (8.4-10.2); Carbon Dioxide 21 mmol/L (22-30); Creatinine 1 0.33 mg/dL (0.52-1.04); Glucose 78 mg/dL (74-106); Potassium 3.6 mmol/L (3.5-5.1); SODIUM 121 mmol/L (137-145)
[2018-08-15] MEDS: Advair Hfa 230/21 Mcg COMMON CANISTER IH SCH ×2 (07:00→19:52)
[2018-08-15] MEDS: Spiriva 18 Mcg/Cap Inhaler IH SCH (07:10)
--- NOTE | 2018-08-15 08:56 | CONS ---
CONSULT DATE: 08/14/2018 HISTORY: Kanchan Shipman is a 58 year-old woman with history of chronic obstructive pulmonary disease who was recently hospitalized and discharged at [facility]. The patient has been experiencing shortness of breath although she appears chronically ill she reportedly stated that it only started affecting her recently. She had CT chest performed at [facility] on 07/22/2018 that showed a large right lower lobe pleural based mass which is concerning for malignancy. Subsequently she was seen by Dr. Leslie Ann in the office and was noted to have hypoxemia. Since admission this time she is being treated with IV medicines along with supplemental oxygen. She also had a VQ scan performed which was reported as low probability. PAST MEDICAL HISTORY: Positive for history of chronic obstructive pulmonary disease as well as bronchitis, anxiety disorder and hypertension. PAST SURGICAL HISTORY: Adenoidectomy, tonsillectomy. PERSONAL AND SOCIAL HISTORY: The patient is a smoker who claims to be trying to "cut down". MEDICATIONS: Home and current medications are reviewed. ALLERGIES: TDAP, PENICILLIN. PHYSICAL EXAMINATION: This is an elderly, frail woman who appears comfortable, appears chronically ill. Vital signs noted. HEENT: Normocephalic. Oral exam is limited. NECK: Supple. CVS: First and second heart sounds are normal, regular and rhythmic. RESPIRATORY: Shows diminished breath sounds, occasional crackles and rhonchi are heard. ABDOMEN: Soft. EXTREMITIES: No edema is noted. LABORATORY DATA AND TESTS: Sodium 123, potassium 3.3, chloride 93, bicarb 22, glucose 86, BUN 6, creatinine 0.33, sodium 177. White count 7.7, hemoglobin 7.8, hematocrit 23, PLT count 273,000. Ferritin is 439. Iron 18. Urine sodium 25. Urine osmolality 395. Chest x-ray, CT chest and other radiologic tests reviewed. ASSESSMENT: This is a 58 year old woman admitted with: 1) Chronic obstructive pulmonary disease with exacerbation. 2) Hypoxemia. 3) Large right lower lobe pleural base mass concerning for malignancy. 4) Hyponatremia appears chronic with clinical euvolemia. 5) Frailty. 6) Nicotine addiction. 7) Comorbidities as listed above. RECOMMENDATIONS: 1) I agree with present treatment. 2) Need for biopsy along with options were discussed with the patient. She is in agreement for proceeding with CT-guided biopsy of right lower lobe pleural based mass, will request radiology to do the same. Risks, benefits, potential complications were discussed. 3) Urine sodium may be low for various factors including she has been on diuretic, would benefit from one dose of Samsca if it is available at this facility. Her functional status and overall health appears poor. If malignancy is confirmed, I believe she would benefit from palliative radiation after staging has been performed. Will obviously discuss those options at the appropriate time. Thank you for allowing me to participate in the care of your patient.
[2018-08-15] MEDS ORDERED: Magnesium Sulfate 1 GM/2 ML VIAL IV ONE (09:00)
--- NOTE | 2018-08-15 09:01 | PCM.NOTE ---
Date and Time: 08/15/18855 Subjective Assessment: Patient denies pain. Her nurse states she only ate a few bites of supper last night and then complained of nausea. Social Media Project Manager, Dr. Blas, saw her yesterday and ordered a CT guided biopsy of the lung mass. She is scheduled for that this AM. - Review of Systems Constitutional: Weakness Respiratory: Cough Cardiac: No Symptoms Abdominal/Gastrointestinal: Nausea Genitourinary Symptoms: No Symptoms Musculoskeletal: No Symptoms Objective Exam General Appearance: no apparent distress, alert Neurologic Exam: cooperative, other (poor insight) Skin Exam: normal color, warm, dry Respiratory Exam: normal breath sounds, lungs clear, No crackles/rales, No rhonchi, No wheezing Cardiovascular Exam: regular rate/rhythm, normal heart sounds, No murmur, No friction rub, No gallop Gastrointestinal/Abdomen Exam: soft, normal bowel sounds, No tenderness, No distention, No mass Extremity Exam: other (no c/c/e) OBJECTIVE DATA Vital Signs: Vital Signs - 24 hr Temp Pulse Resp BP Pulse Ox 08/15/18 07:25 97.9 F 100 H 16 105/58 96 08/15/18 07:10 96 08/15/18 04:00 98.4 F 96 H 18 121/70 100 08/15/18 03:01 96 H 18 100 08/15/18 00:00 97.9 F 110 H 18 127/60 99 08/14/18 23:00 110 H 18 99 08/14/18 20:40 112 H 18 96 08/14/18 19:55 98.8 F 115 H 20 120/64 97 08/14/18 19:00 98 08/14/18 16:00 98.6 F 105 H 20 123/78 98 08/14/18 15:00 98 08/14/18 14:54 105 H 20 98 08/14/18 12:00 98.9 F 16 102/61 08/14/18 11:00 99 08/14/18 10:51 88 20 Oxygen-Last 24 hours O2 Percentage 2 Liters = 28% O2 Percentage 2 Liters = 28% O2 Percentage 2 Liters = 28% O2 Percentage 2 Liters = 28% O2 Percentage 2 Liters = 28% O2 Percentage 2 Liters = 28% Pain Assessment - Last Documented Pain Intensity 0 Pain Scale Used 0-10 Pain Scale Intake and Output: Intake & Output 08/13/18 08/14/18 08/15/18 08/16/18 06:59 06:59 06:59 06:59 Intake Total 18603 1681 Output Total 300 50 Balance 1860 1952 1631 Weight 48.4 kg 50.3 kg 51.1 kg Lab Results: Lab Results-Last 24 Hours 08/12/18 08/14/18 08/15/18 Range/Units 07:00 05:30 05:44 WBC (4.0-10.5) K/mm3 RBC (4.1-5.4) M/mm3 Hgb (12.0-16.0) gm/dl Hct (35-47) % MCV (78-100) fl MCH (26-32) pg MCHC (32-36) g/dl RDW (11.5-14.0) % Plt Count (150-450) K/mm3 MPV (6-9.5) fl PT 16.6 H (9.95-12.35) SECONDS INR 1.46 (0.8-3.0) APTT 35.0 (25.3-37.0) SECONDS Sodium 121 L (137-145) mmol/L Potassium 3.6 (3.5-5.1) mmol/L Chloride 93 L (98-107) mmol/L Carbon Dioxide 21 L (22-30) mmol/L Anion Gap 10.6 (5-15) MEQ/L BUN 5 L (7-17) mg/dL Creatinine 0.33 L (0.52-1.04) mg/dL Estimated GFR > 60.0 ML/MIN Glucose 78 (74-106) mg/dL Calcium 7.4 L (8.4-10.2) mg/dL Magnesium (1.6-2.3) mg/dL Urine Osmolality 395 mOsm/kg 08/15/18 08/15/18 Range/Units 05:44 05:44 WBC 7.8 (4.0-10.5) K/mm3 RBC 2.13 L (4.1-5.4) M/mm3 Hgb 7.2 L (12.0-16.0) gm/dl Hct 20.9 L (35-47) % MCV 98.1 (78-100) fl MCH 33.8 H (26-32) pg MCHC 34.4 (32-36) g/dl RDW 13.2 (11.5-14.0) % Plt Count 274 (150-450) K/mm3 MPV 9.3 (6-9.5) fl PT (9.95-12.35) SECONDS INR (0.8-3.0) APTT (25.3-37.0) SECONDS Sodium (137-145) mmol/L Potassium (3.5-5.1) mmol/L Chloride (98-107) mmol/L Carbon Dioxide (22-30) mmol/L Anion Gap (5-15) MEQ/L BUN (7-17) mg/dL Creatinine (0.52-1.04) mg/dL Estimated GFR ML/MIN Glucose (74-106) mg/dL Calcium (8.4-10.2) mg/dL Magnesium 1.2 L (1.6-2.3) mg/dL Urine Osmolality mOsm/kg Radiology Exams: Radiology Procedures Category Date Time Status BIO LUNG [CT] Urgent Exams 08/15/18 09:00 Ordered BIOPYS PLEURA [CT] Routine Exams 08/15/18 07:00 Ordered Multi-Disciplinary Progress Notes: Multi-Disciplinary Progress Notes 08/14/18 15:27 Case Management Note by Alissa Salguero REFERRAL FAXED TO [facility] AT THIS TIME. Initialized on 08/14/18 15:27 - END OF NOTE 08/14/18 15:23 Case Management Note by Alissa Salguero S - HIP INSURANCE PLAN PROVIDER LIST OBTAINED FOR HHC SERVICES AND HOME OXYGEN FROM THEIR WEBSITE. - REFERRAL TO [facility] FOR HHC SERVICES. ALSO, IF HOME OXYGEN NEEDED, PT WILL CHOOSE [facility]. Initialized on 08/14/18 15:23 - END OF NOTE 08/14/18 13:00 (created 08/14/18 15:01) Case Management Note by Alissa Salguero DISCHARGE PLAN REVIEWED WITH PT. REPORTS THAT SHE LIVES AT HOME WITH BOYFRIEND. HE ASSISTS WHEN NEEDED. REPORTS THAT HE DOES WORK SO HE IS NOT HOME WITH HER 18/09. PT REPORTS THAT SHE HAS A WALKER AND USES IT AT HOME. DISCUSSED THAT GIVEN HER WEAKENED STATE, IT WOULD BENEFIT HER GREATLY TO HAVE ATLEAST HHC SERVICES FOR A VISITING NURSE/AIDE/AND THERAPY. PT REPORTS THAT SHE IS AGREEABLE TO THIS. VERBALIZED THAT SHE UNDERSTANDS SHE MAY NEED EXTRA HELP FOR AWHILE. REPORTS THAT SHE DOES NOT HAVE ANY PREFERENCE FOR [facility] SERVICES , WHOMEVER WOULD BE IN NETWORK WITH HER INSURANCE. WILL CALL INSURANCE TO SEE WHAT PROVIDERS ARE IN NETWORK FOR PT'S AREA. ALSO, DISCUSSED POSSIBILITY OF NEEDING HOME OXYGEN ON DISCHARGE, AGAIN, PT WANTS TO USE WHOMEVER IS IN NETWORK FOR THIS SERVICES IF IT IS REQUIRED. DENIES [facility] NEEDS FOR DISCHARGE. WILL CONT TO FOLLOW FOR ALL DC NEEDS. Initialized on 08/14/18 15:01 - END OF NOTE Assessment/Plan (1) Lung mass Current Visit: Yes Status: Acute Assessment & Plan: Patient is scheduled for lung biopsy today by CT guidance. Code(s): R91.8 - OTHER NONSPECIFIC ABNORMAL FINDING OF LUNG FIELD (2) Hypoxia Current Visit: Yes Status: Acute Assessment & Plan: Continue oxygen by nasal cannula. Code(s): R09.02 - HYPOXEMIA (3) COPD with hypoxia Current Visit: No Status: Acute Assessment & Plan: Continue home medication. Code(s): J44.9 - CHRONIC OBSTRUCTIVE PULMONARY DISEASE, UNSPECIFIED; R09.02 - HYPOXEMIA (4) Pneumonia Current Visit: Yes Status: Acute Qualifiers: Laterality: right Lung location: lower lobe of lung Assessment & Plan: Continue levofloxacin Day 4. Code(s): J18.9 - PNEUMONIA, UNSPECIFIED ORGANISM (5) Hyponatremia Current Visit: Yes Status: Acute Code(s): E87.1 - HYPO-OSMOLALITY AND HYPONATREMIA (6) History of ETOH abuse Current Visit: Yes Status: Acute Assessment & Plan: Stable at this time, no signs of withdrawal. Code(s): F10.11 - ALCOHOL ABUSE, IN REMISSION (7) Gait instability Current Visit: Yes Status: Acute Assessment & Plan: Continue PT Code(s): R26.81 - UNSTEADINESS ON FEET (8) Weight loss Current Visit: Yes Status: Acute Assessment & Plan: Continue Ensure; Transplant Registered Nurse saw patient. (9) Anemia Current Visit: Yes Status: Acute Qualifiers: Anemia type: iron deficiency Assessment & Plan: Continue iron. Discussed with patient that she may need a transfusion if her hgb goes below 7.0. Also checking stool for blood. Code(s): D64.9 - ANEMIA, UNSPECIFIED
[2018-08-15] MEDS ORDERED: Magnesium Sulfate 1 GM/2 ML VIAL*** 2 GM in Sodium Chloride 0.9% 100 ML IVPB 100 ML IV SCH (09:30)
[2018-08-15 09:32] LABS: ANISOCYTOSIS 1+; BAND 2 % (0.0-2.0); Eosinophil 2 % (0.00-3.0); Lymphocytes 9 % (24-44); Monocyte 5 % (0.0-12.0); Neutrophils 82 % (36.0-66.0); Platelet Estimate NORMAL (NORMAL); Total Cells Counted 100; Toxic Granulation 1+
[2018-08-15] MEDS: FEOSOL 325 MG PO SCH ×2 (10:11→22:35)
[2018-08-15] MEDS: CLARITIN 10 MG PO SCH (10:11)
[2018-08-15] MEDS: Levofloxacin 500MG/100ML D5W 500 MG/100 ML BAG IV SCH (10:11)
[2018-08-15] MEDS: THERAGRAN MULTIVITAMIN PO SCH (10:11)
[2018-08-15] MEDS: Klor Con 10 MEQ PO SCH ×2 (10:11→22:35)
[2018-08-15] MEDS: MAG-OX 400 PO SCH ×2 (10:11→22:35)
[2018-08-15] MEDS ORDERED: NON-FORMULARY ITEM PO ONE (10:30)
[2018-08-15] MEDS: VITAMIN B-1 100 MG PO SCH (10:33)
[2018-08-15] MEDS ORDERED: XYLOCAINE 1% HCL 20 ML MDV IJ ONE (10:49)
--- NOTE | 2018-08-15 11:32 | XRAY ---
Indication: Baseline chest exam following CT-guided right lung biopsy. Single portable chest obtained in expiration is negative for pneumothorax. There is moderate right base pleural-parenchymal opacity increased with respect to August 12, 2018 and new left base atelectasis. Heart is not enlarged.
--- NOTE | 2018-08-15 11:33 | XRAY ---
Indication: Right lung mass. Informed consent obtained. The patient was placed on the CT table in prone position. CT images were obtained through the right lower lobe mass for localization. The skin was then prepped and draped in sterile fashion. 1% Lidocaine plain was used for local anesthesia. Tiny skin incision made. A 19 gauge outer guiding needle was then percutaneously inserted into the periphery of the right lung base mass in question. Then a 20-gauge Temno biopsy needle was inserted into the guiding needle. Four core biopsies were then obtained. The specimen was then collected and taken to pathology for analysis. At the end, all needles removed. Hemostasis achieved using digital pressure over the puncture site. Small Band-Aid applied. Repeat postbiopsy CT imaging was negative for pneumothorax or complications. The patient was taken off of the CT table with a post biopsy chest radiograph pending. Impression: Technically successful CT-guided percutaneous biopsy of right lung base mass. No immediate complications. Approximately 2 cc blood loss. Consider bronchoscopic biopsy if final pathology reports insufficient tissue. CT DI 8.42
--- NOTE | 2018-08-15 14:43 | ECHO ---
DATE OF PROCEDURE: 08/12/2018 CLINICAL INFORMATION: Elevated BNP. The M-mode 2D, and Doppler echocardiogram including color flow Doppler shows the left ventricle is moderately dilated with a dimension of 6.7 cm. There is no apical thrombus noted. The septal wall thickness is increased at 1.2 cm. The left ventricular posterior wall thickness is 1.0 cm. The ejection fraction is calculated to be 42%. However the left ventricular systolic function appears to be somewhere in the range of approximately 55%. The right ventricle is grossly normal. The aortic valve opens well. There is mitral valve leaflet thickening. There is mild mitral regurgitation present. There is mild tricuspid regurgitation. The pulmonic valve is not well visualized. The aortic root is normal at 2.7 cm. There is no pericardial effusion present. IMPRESSION: 1) TECHNICALLY DIFFICULT ECHOCARDIOGRAM. 2) NORMAL CONTRACTILITY OF THE LEFT VENTRICLE. 3) MILD MITRAL REGURGITATION. 4) MILD TRICUSPID REGURGITATION. 5) MODERATE LEFT VENTRICULAR DILATATION. 6) BORDERLINE ASYMMETRIC LEFT VENTRICULAR HYPERTROPHY.
[2018-08-16] MEDS ORDERED: DUONEB 0.5-3 MG/3 ml Neb IH PRN (03:13)
[2018-08-16] MEDS: DUONEB 0.5-3 MG/3 ml Neb IH SCH (03:52)
[2018-08-16 06:10] LABS: Hemoglobin 7.8 gm/dl (12.0-16.0); Mean Cell Volume 99.1 fl (78-100); Mean Corpuscular Hemoglobin 33.6 pg (26-32); Mean Corpuscular Hgb Concent. 33.9 g/dl (32-36); Mean Platelet Volume 9.6 fl (6-9.5); Platelet Count 310 K/mm3 (150-450); Red Blood Count 2.32 M/mm3 (4.1-5.4); Red Cell Distribution Width 13.5 % (11.5-14.0); White Blood Count 8.4 K/mm3 (4.0-10.5)
[2018-08-16 06:48] LABS: ANION GAP 11.6 MEQ/L (5-15); BLOOD UREA NITROGEN 4 mg/dL (7-17); CHLORIDE 101 mmol/L (98-107); Calcium 8.1 mg/dL (8.4-10.2); Carbon Dioxide 21 mmol/L (22-30); Creatinine 1 0.38 mg/dL (0.52-1.04); Glucose 100 mg/dL (74-106); Potassium 3.3 mmol/L (3.5-5.1); SODIUM 130 mmol/L (137-145)
[2018-08-16 07:39] LABS: BAND 8 % (0.0-2.0); Eosinophil 4 % (0.00-3.0); Hypochromia 2+; Lymphocytes 14 % (24-44); Monocyte 10 % (0.0-12.0); Neutrophils 64 % (36.0-66.0); Platelet Estimate NORMAL (NORMAL); Total Cells Counted 100
[2018-08-16 07:40] LABS: Granulocyte Absolute (ANC) 6.06 (1.4-6.9)
--- NOTE | 2018-08-16 08:57 | PCM.NOTE ---
Date and Time: 08/16/18 0852 Subjective Assessment: Patient reports that she feels like she is at work and doesn't always want to get up when other people want her too. She reports she feels like people are talking about her. She denies any pain. She continues to not have much appetite. She denies constipation. She states she wants to go home. I asked her if I could talk to her boyfriend, Mr. Adam Baker, and she gave me verbal permission. I called him and discussed that I was concerned about how much weakness she had and asked if he would be supportive of a rehab stay and he said he would be. He reports he visited last night and she only ate a few bites of food. She was off of oxygen overnight. - Review of Systems Constitutional: Weakness Eyes: No Symptoms Ears, Nose, & Throat: No Symptoms Respiratory: Cough, No Short Of Breath, No Wheezing Cardiac: No Symptoms Abdominal/Gastrointestinal: Appetite Changes Genitourinary Symptoms: No Symptoms Objective Exam General Appearance: no apparent distress, cachetic, thin, other (sitting up in her chair with her tray in front of her with a glass of drink but her plate is behind her on the bed with lid off and not much eaten.) Neurologic Exam: alert, other (oriented to person. States place is [place]. Says year is 1970. Knows that Adam Fonseca is president of the .) Skin Exam: normal color, warm, dry Respiratory Exam: other (decreased breath sounds at right base, no crackles, no wheezes, deep wet sounding cough) Cardiovascular Exam: tachycardia, other (regular rhythm), No murmur, No friction rub, No gallop Gastrointestinal/Abdomen Exam: soft, normal bowel sounds, No tenderness, No distention, No mass Extremity Exam: other (no c/c/e) OBJECTIVE DATA Vital Signs: Vital Signs - 24 hr Temp Pulse Resp BP Pulse Ox 08/16/18 08:00 98.0 F 100 H 16 109/61 08/16/18 03:53 98.3 F 104 H 16 99/58 96 08/16/18 03:00 96 08/16/18 00:00 98.6 F 107 H 20 114/59 92 L 08/15/18 23:19 103 H 18 97 08/15/18 20:00 97.9 F 114 H 19 112/61 94 L 08/15/18 19:00 99 H 18 99 08/15/18 16:00 98.7 F 103 H 16 121/59 97 08/15/18 15:25 97 08/15/18 12:00 97.6 F 96 H 16 99/56 98 08/15/18 11:14 96 08/15/18 10:51 94 H 20 99 Pain Assessment - Last Documented Pain Intensity 0 Pain Scale Used 0-10 Pain Scale Intake and Output: Intake & Output 08/14/18 08/15/18 08/16/18 08/17/18 06:59 06:59 06:59 06:59 Intake Total 2253 1681 1468 Output Total 300 50 800 Balance 1953 1631 668 Weight 50.3 kg 51.1 kg Lab Results: Lab Results-Last 24 Hours 08/15/18 08/15/18 08/16/18 Range/Units 05:44 13:39 05:33 WBC (4.0-10.5) K/mm3 RBC (4.1-5.4) M/mm3 Hgb (12.0-16.0) gm/dl Hct (35-47) % MCV (78-100) fl MCH (26-32) pg MCHC (32-36) g/dl RDW (11.5-14.0) % Plt Count (150-450) K/mm3 MPV (6-9.5) fl Absolute Granulocytes (1.4-6.9) Segmented Neutrophils 82 H (36.0-66.0) % Band Neutrophils 2 (0.0-2.0) % Lymphocytes (Manual) 9 L (24-44) % Monocytes (Manual) 5 (0.0-12.0) % Eosinophils (Manual) 2 (0.00-3.0) % Hypochromia Toxic Granulation 1+ Platelet Estimate NORMAL (NORMAL) RBC Morphology ABNORMAL Anisocytosis 1+ Sodium 130 L D (137-145) mmol/L Potassium 3.3 L (3.5-5.1) mmol/L Chloride 101 (98-107) mmol/L Carbon Dioxide 21 L (22-30) mmol/L Anion Gap 11.6 (5-15) MEQ/L BUN 4 L (7-17) mg/dL Creatinine 0.38 L (0.52-1.04) mg/dL Estimated GFR > 60.0 ML/MIN Glucose 100 (74-106) mg/dL Calcium 8.1 L (8.4-10.2) mg/dL Urine Sodium 31 (30-90) mmol/L 08/16/18 Range/Units 05:33 WBC 8.4 (4.0-10.5) K/mm3 RBC 2.32 L (4.1-5.4) M/mm3 Hgb 7.8 L (12.0-16.0) gm/dl Hct 23.0 L (35-47) % MCV 99.1 (78-100) fl MCH 33.6 H (26-32) pg MCHC 33.9 (32-36) g/dl RDW 13.5 (11.5-14.0) % Plt Count 310 (150-450) K/mm3 MPV 9.6 H (6-9.5) fl Absolute Granulocytes 6.06 (1.4-6.9) Segmented Neutrophils 64 (36.0-66.0) % Band Neutrophils 8 H (0.0-2.0) % Lymphocytes (Manual) 14 L (24-44) % Monocytes (Manual) 10 (0.0-12.0) % Eosinophils (Manual) 4 H (0.00-3.0) % Hypochromia 2+ Toxic Granulation Platelet Estimate NORMAL (NORMAL) RBC Morphology ABNORMAL Anisocytosis Sodium (137-145) mmol/L Potassium (3.5-5.1) mmol/L Chloride (98-107) mmol/L Carbon Dioxide (22-30) mmol/L Anion Gap (5-15) MEQ/L BUN (7-17) mg/dL Creatinine (0.52-1.04) mg/dL Estimated GFR ML/MIN Glucose (74-106) mg/dL Calcium (8.4-10.2) mg/dL Urine Sodium (30-90) mmol/L Radiology Exams: Radiology Procedures Category Date Time Status BIO LUNG [CT] Urgent Exams 08/15/18 09:00 Completed CHEST 1 VIEW (PORTABLE) Routine Exams 08/15/18 10:45 Completed Multi-Disciplinary Progress Notes: Multi-Disciplinary Progress Notes 08/15/18 18:55 Physical Therapy Note by Carolyn Menard ABLE TO INCORPORATE STANDING AND SHORT DISTANCE WALKING WITH WALKER WITH [employer]IST WHILE TOILETING PATIENT THIS EVENING. ACTIVITY TOLERANCE POOR. TEGADERM COVER ON 2 SMALL SKIN TEARS LEFT FOREARM. Initialized on 08/15/18 18:55 - END OF NOTE 08/15/18 16:58 Physical Therapy Note by Carolyn Menard PATIENT REFUSED ACTIVITY TODAY WANTING TO SLEEP. PATIENT IS GENERALLY VERY FRAIL. HGB NEAR 7.0. WILL MONITOR. Initialized on 08/15/18 16:58 - END OF NOTE 08/15/18 10:56 Case Management Note by Alissa Salguero SPOKE WITH [facility], PLAN TO ADMIT TO [facility] ON DISCHARGE. Initialized on 08/15/18 10:56 - END OF NOTE Assessment/Plan (1) Lung mass Current Visit: Yes Status: Acute Assessment & Plan: She had lung biopsy on 08/15/[address] Awaiting pathology. Dr. Usman Blas is following her. Code(s): R91.8 - OTHER NONSPECIFIC ABNORMAL FINDING OF LUNG FIELD (2) Hypoxia Current Visit: Yes Status: Acute Assessment & Plan: Weaned off oxygen overnight. When she is discharged, she would benefit from a home oxygen evaluation to make sure she doesn't need oxygen with exertion. Code(s): R09.02 - HYPOXEMIA (3) COPD with hypoxia Current Visit: No Status: Acute Assessment & Plan: Continue current medication. Code(s): J44.9 - CHRONIC OBSTRUCTIVE PULMONARY DISEASE, UNSPECIFIED; R09.02 - HYPOXEMIA (4) Pneumonia Current Visit: Yes Status: Acute Qualifiers: Laterality: right Lung location: lower lobe of lung Assessment & Plan: On levofloxacin Day 5. Oxygenation has improved. Code(s): J18.9 - PNEUMONIA, UNSPECIFIED ORGANISM (5) Hyponatremia Current Visit: Yes Status: Acute Assessment & Plan: Improved to 130 after dose of Samsca ordered by Dr. Usman Blas. Code(s): E87.1 - HYPO-OSMOLALITY AND HYPONATREMIA (6) History of ETOH abuse Current Visit: Yes Status: Acute Assessment & Plan: No signs of EtOH withdrawal. Continue thiamine and multivitamin. Code(s): F10.11 - ALCOHOL ABUSE, IN REMISSION (7) Gait instability Current Visit: Yes Status: Acute Assessment & Plan: Continue PT. I do not feel she is safe to be discharged to home as she is often alone in her house and needing assistance of at least one person for safe ambulation right now. Will plan to continue inpatient stay and consider rehab at time of discharge. Code(s): R26.81 - UNSTEADINESS ON FEET (8) Weight loss Current Visit: Yes Status: Acute (9) Anemia Current Visit: Yes Status: Acute Qualifiers: Anemia type: iron deficiency Assessment & Plan: Stable at this time. Stool for hemocult ordered but not collected yet. Code(s): D64.9 - ANEMIA, UNSPECIFIED (10) Hypokalemia Current Visit: Yes Status: Acute Assessment & Plan: Potassium still low this AM after being on Kcl 20 meq bid. Will increase KCl to 20 meq tid and continue to check daily potassium as well as creatinine. Code(s): E87.6 - HYPOKALEMIA (11) Hypomagnesemia Current Visit: Yes Status: Acute Assessment & Plan: Will check Magnesium level today. She had 2 grams of magnesium sulfate IV yesterday and 4 grams earlier in her hospitalization. I also increased her magnesium sulfate from 400 mg daily to 400 mg bid. Code(s): E83.42 - HYPOMAGNESEMIA
[2018-08-16] MEDS: Advair Hfa 230/21 Mcg COMMON CANISTER IH SCH ×2 (09:47→20:55)
[2018-08-16] MEDS: Spiriva 18 Mcg/Cap Inhaler IH SCH (09:48)
[2018-08-16] MEDS: FEOSOL 325 MG PO SCH (10:13)
[2018-08-16] MEDS: VITAMIN B-1 100 MG PO SCH (10:13)
[2018-08-16] MEDS: Levofloxacin 500MG/100ML D5W 500 MG/100 ML BAG IV SCH (10:13)
[2018-08-16] MEDS: Klor Con 10 MEQ PO SCH ×2 (10:14→15:04)
[2018-08-16] MEDS: MAG-OX 400 PO SCH (10:14)
[2018-08-16] MEDS: THERAGRAN MULTIVITAMIN PO SCH (10:14)
[2018-08-16] MEDS: CLARITIN 10 MG PO SCH (10:14)
[2018-08-16] MEDS: Sodium Chloride 0.9% 1000 ML 1,000 ML IV SCH (15:04)
[2018-08-16] MEDS ORDERED: NON-FORMULARY ITEM PO SCH (17:00)
[2018-08-16] MEDS ORDERED: Klor Con 10 MEQ PO SCH (17:00)
[2018-08-17] MEDS: FEOSOL 325 MG PO SCH ×3 (05:39→21:25)
[2018-08-17] MEDS: Klor Con 10 MEQ PO SCH ×4 (05:40→21:26)
[2018-08-17] MEDS: MAG-OX 400 PO SCH ×3 (05:40→21:25)
[2018-08-17 06:02] LABS: Hematocrit 21.4 % (35-47); Hemoglobin 7.1 gm/dl (12.0-16.0); Mean Corpuscular Hgb Concent. 33.2 g/dl (32-36); Platelet Count 306 K/mm3 (150-450); Red Blood Count 2.14 M/mm3 (4.1-5.4); Red Cell Distribution Width 13.5 % (11.5-14.0); White Blood Count 9.5 K/mm3 (4.0-10.5)
[2018-08-17 06:19] LABS: Mean Corpuscular Hemoglobin 33.1 pg (26-32)
[2018-08-17 06:20] LABS: ALBUMIN 2.1 g/dL (3.5-5.0); ALKALINE PHOSPHATASE 100 U/L (38-126); BLOOD UREA NITROGEN 3 mg/dL (7-17); CHLORIDE 104 mmol/L (98-107); Carbon Dioxide 21 mmol/L (22-30); Creatinine 1 0.36 mg/dL (0.52-1.04); Glucose 80 mg/dL (74-106); MAGNESIUM 1.5 mg/dL (1.6-2.3); Potassium 3.4 mmol/L (3.5-5.1); SGOT/AST 37 U/L (14-36); SGPT/ALT 17 U/L (0-35); SODIUM 133 mmol/L (137-145); Total Protein 5.2 g/dL (6.3-8.2)
[2018-08-17 06:37] LABS: Iron 25 ug/dL (37-170); Iron Saturation 18 % (20-39); TIBC 137 ug/dL (265-462)
[2018-08-17 06:41] LABS: Lymphocytes 12 % (24-44); Monocyte 1 % (0.0-12.0); Neutrophils 87 % (36.0-66.0); Total Cells Counted 100
[2018-08-17 06:42] LABS: Platelet Estimate NORMAL (NORMAL)
[2018-08-17] MEDS: THERAGRAN MULTIVITAMIN PO SCH (09:07)
[2018-08-17] MEDS: VITAMIN B-1 100 MG PO SCH (09:07)
[2018-08-17] MEDS: Levofloxacin 500MG/100ML D5W 500 MG/100 ML BAG IV SCH (09:07)
[2018-08-17] MEDS: CLARITIN 10 MG PO SCH (09:08)
[2018-08-17 09:14] LABS: Folate (Folic Acid) 5.52 ng/mL (2.76 - >20)
[2018-08-17] MEDS: Advair Hfa 230/21 Mcg COMMON CANISTER IH SCH ×2 (10:56→20:41)
[2018-08-17] MEDS: Spiriva 18 Mcg/Cap Inhaler IH SCH (10:57)
--- NOTE | 2018-08-17 12:00 | PCM.NOTE ---
Date and Time: 08/17/18 1156 Subjective Assessment: patient complains of being cold but no other complaints, she has been confused and disoriented according to staff Objective Exam General Appearance: cachetic Neurologic Exam: alert, cooperative, No oriented x 3 Skin Exam: normal color, warm, dry Respiratory Exam: diminished breath sounds, prolonged expirations Cardiovascular Exam: regular rate/rhythm, normal heart sounds Gastrointestinal/Abdomen Exam: soft, No tenderness, No mass Extremity Exam: normal inspection, normal range of motion OBJECTIVE DATA Vital Signs: Vital Signs - 24 hr Temp Pulse Resp BP Pulse Ox 08/17/18 10:57 91 H 16 94 L 08/17/18 08:00 98.1 F 99 H 16 125/68 94 L 08/17/18 04:00 97.8 F 103 H 16 103/64 97 08/17/18 00:00 98.2 F 103 H 16 115/56 96 08/16/18 20:59 96 H 16 98 08/16/18 20:00 98.2 F 104 H 16 180/96 95 08/16/18 17:00 94 L 08/16/18 16:00 98.4 F 97 H 95/50 94 L 08/16/18 13:00 94 L 08/16/18 12:00 98.4 F 97 H 16 95/50 Pain Assessment - Last Documented Pain Intensity 0 Pain Scale Used FLACC Intake and Output: Intake & Output 08/14/18 08/15/18 08/16/18 08/17/18 11:59 11:59 11:59 11:59 Intake Total 2253 1681 1468 1173 Output Total 300 50 800 Balance 1953 9712 810 6684 Weight 50.3 kg 51.1 kg 51.1 kg 50 kg Lab Results: Lab Results-Last 24 Hours 08/15/18 08/17/18 08/17/18 Range/Units 14:00 05:40 05:40 WBC 9.5 (4.0-10.5) K/mm3 RBC 2.14 L (4.1-5.4) M/mm3 Hgb 7.1 L (12.0-16.0) gm/dl Hct 21.4 L (35-47) % MCV 100.0 (78-100) fl MCH 33.1 H (26-32) pg MCHC 33.2 (32-36) g/dl RDW 13.5 (11.5-14.0) % Plt Count 306 (150-450) K/mm3 MPV 9.0 (6-9.5) fl Segmented Neutrophils 87 H (36.0-66.0) % Lymphocytes (Manual) 12 L (24-44) % Monocytes (Manual) 1 (0.0-12.0) % Platelet Estimate NORMAL (NORMAL) RBC Morphology NORMAL Sodium 133 L (137-145) mmol/L Potassium 3.4 L (3.5-5.1) mmol/L Chloride 104 (98-107) mmol/L Carbon Dioxide 21 L (22-30) mmol/L Anion Gap 11.0 (5-15) MEQ/L BUN 3 L (7-17) mg/dL Creatinine 0.36 L (0.52-1.04) mg/dL Estimated GFR > 60.0 ML/MIN Glucose 80 (74-106) mg/dL Calcium 8.0 L (8.4-10.2) mg/dL Magnesium 1.5 L (1.6-2.3) mg/dL Iron (37-170) ug/dL TIBC (265-462) ug/dL Iron Saturation (20-39) % Ferritin (11.1-264) ng/mL Total Bilirubin 0.40 (0.2-1.3) mg/dL AST 37 H (14-36) U/L ALT 17 (0-35) U/L Alkaline Phosphatase 100 (38-126) U/L Serum Total Protein 5.2 L (6.3-8.2) g/dL Albumin 2.1 L (3.5-5.0) g/dL Vitamin B12 Folic Acid (2.76 - >20) ng/mL Urine Osmolality 358 mOsm/kg 08/17/18 08/17/18 Range/Units 05:40 05:40 WBC (4.0-10.5) K/mm3 RBC (4.1-5.4) M/mm3 Hgb (12.0-16.0) gm/dl Hct (35-47) % MCV (78-100) fl MCH (26-32) pg MCHC (32-36) g/dl RDW (11.5-14.0) % Plt Count (150-450) K/mm3 MPV (6-9.5) fl Segmented Neutrophils (36.0-66.0) % Lymphocytes (Manual) (24-44) % Monocytes (Manual) (0.0-12.0) % Platelet Estimate (NORMAL) RBC Morphology Sodium (137-145) mmol/L Potassium (3.5-5.1) mmol/L Chloride (98-107) mmol/L Carbon Dioxide (22-30) mmol/L Anion Gap (5-15) MEQ/L BUN (7-17) mg/dL Creatinine (0.52-1.04) mg/dL Estimated GFR ML/MIN Glucose (74-106) mg/dL Calcium (8.4-10.2) mg/dL Magnesium (1.6-2.3) mg/dL Iron 25 L (37-170) ug/dL TIBC 137 L (265-462) ug/dL Iron Saturation 18 L (20-39) % Ferritin 520 H (11.1-264) ng/mL Total Bilirubin (0.2-1.3) mg/dL AST (14-36) U/L ALT (0-35) U/L Alkaline Phosphatase (38-126) U/L Serum Total Protein (6.3-8.2) g/dL Albumin (3.5-5.0) g/dL Vitamin B12 Pending Folic Acid 5.52 (2.76 - >20) ng/mL Urine Osmolality mOsm/kg Multi-Disciplinary Progress Notes: Multi-Disciplinary Progress Notes 08/16/18 16:31 Physical Therapy Note by Ina Torres PT. REPORTED NOT FEELING WELL AND FATIGUED. ENCOURAGED PT. TO SIT UP IN THE CHAIR FOR LUNCH. PT. PERFORMED BED MOBILITY W/ MIN ASSIST. BED TO CHAIR TRANSFERS W/ MIN ASSIST. PT. REQUIRED V.C. FOR DEEP BREATHING. WAS NOT MOTIVATED TO EAT LUNCH. DID DRINK A FEW SIPS OF TEA. CHAIR ALARM WAS ACITVATED AND NSG NOTIFIED THAT PT. WAS IN CHAIR. FEEL PT. IS NOT REHAB CANDIDATE AT THIS TIME AND WOULD BENEFIT FROM HHC/HOSPICE/SNF. WILL MONITOR AND ASSIST NSG W/ MOBILITY. INA TORRES PT Initialized on 08/16/18 16:31 - END OF NOTE 08/16/18 15:15 (created 08/17/18 08:35) Case Management Note by Alissa Salguero SPOKE WITH YASH AT [facility], THEY DO NOT ACCEPT PT INSURANCE. Initialized on 08/17/18 08:35 - END OF NOTE 08/16/18 12:32 Nutrition Note by Shanique Serrano F/u Note: Regular diet con't with poor po intake. No order noted for ensure - requested verbal order for 1 can tid with meals. Labs 08/16= Na 130, K+ 3.3, BUN 4, Cr 0.38, hgb 7.8, hct 23.0. Adm weight 48.4 kg; current weight 51.1 kg. Goal #1 not met; goal #2 met. Changing goal #1 to increase po intake >=25% consistently. Discussed ways for weight gain with patient and gave written materials for reinforcement. Also encouraged to snack between meals and consume ensure. Will con't to monitor and f/u prn. T.LAN Serrano Initialized on 08/16/18 12:32 - END OF NOTE Assessment/Plan (1) Pneumonia Current Visit: Yes Status: Acute Qualifiers: Laterality: right Lung location: lower lobe of lung Assessment & Plan: on levaquin, stable at this time. will likely need placement first of the week. Code(s): J18.9 - PNEUMONIA, UNSPECIFIED ORGANISM (2) Anemia Current Visit: Yes Status: Acute Qualifiers: Anemia type: iron deficiency Assessment & Plan: stable, will follow Code(s): D64.9 - ANEMIA, UNSPECIFIED (3) History of ETOH abuse Current Visit: Yes Status: Acute Code(s): F10.11 - ALCOHOL ABUSE, IN REMISSION (4) Hyponatremia Current Visit: Yes Status: Acute Assessment & Plan: improving Code(s): E87.1 - HYPO-OSMOLALITY AND HYPONATREMIA (5) Lung mass Current Visit: Yes Status: Acute Code(s): R91.8 - OTHER NONSPECIFIC ABNORMAL FINDING OF LUNG FIELD (6) Hypokalemia Current Visit: Yes Status: Acute Assessment & Plan: improving. Code(s): E87.6 - HYPOKALEMIA
[2018-08-17] MEDS: TYLENOL 325 MG PO PRN (20:11)
[2018-08-18] MEDS: Sodium Chloride 0.9% 1000 ML 1,000 ML IV SCH (01:40)
[2018-08-18 05:54] LABS: Hematocrit 21.8 % (35-47); Hemoglobin 7.3 gm/dl (12.0-16.0); Mean Corpuscular Hgb Concent. 33.5 g/dl (32-36); Mean Platelet Volume 9.3 fl (6-9.5); Platelet Count 269 K/mm3 (150-450); Red Blood Count 2.18 M/mm3 (4.1-5.4); Red Cell Distribution Width 13.8 % (11.5-14.0); White Blood Count 6.8 K/mm3 (4.0-10.5)
[2018-08-18 05:55] LABS: Mean Corpuscular Hemoglobin 33.4 pg (26-32)
[2018-08-18 06:05] LABS: ALBUMIN 1.9 g/dL (3.5-5.0); ALKALINE PHOSPHATASE 89 U/L (38-126); ANION GAP 9.1 MEQ/L (5-15); CHLORIDE 105 mmol/L (98-107); Calcium 7.9 mg/dL (8.4-10.2); Carbon Dioxide 22 mmol/L (22-30); Creatinine 1 0.38 mg/dL (0.52-1.04); Glucose 81 mg/dL (74-106); Potassium 3.6 mmol/L (3.5-5.1); SGOT/AST 33 U/L (14-36); SGPT/ALT 16 U/L (0-35); SODIUM 133 mmol/L (137-145); Total Protein 4.8 g/dL (6.3-8.2)
[2018-08-18 06:11] LABS: BLOOD UREA NITROGEN 2 mg/dL (7-17)
[2018-08-18 06:17] LABS: ANISOCYTOSIS 1+; Eosinophil 2 % (0.00-3.0); Lymphocytes 12 % (24-44); Monocyte 5 % (0.0-12.0); Neutrophils 81 % (36.0-66.0); Platelet Estimate NORMAL (NORMAL); Poikilocytosis 1+; Total Cells Counted 100
[2018-08-18] MEDS: Levofloxacin 500MG/100ML D5W 500 MG/100 ML BAG IV SCH (09:44)
[2018-08-18] MEDS: THERAGRAN MULTIVITAMIN PO SCH (09:45)
[2018-08-18] MEDS: VITAMIN B-1 100 MG PO SCH (09:45)
[2018-08-18] MEDS: CLARITIN 10 MG PO SCH (09:45)
[2018-08-18] MEDS: FEOSOL 325 MG PO SCH ×2 (09:45→22:46)
[2018-08-18] MEDS: Klor Con 10 MEQ PO SCH ×3 (09:45→22:46)
[2018-08-18] MEDS: MAG-OX 400 PO SCH ×2 (09:45→22:46)
--- NOTE | 2018-08-18 09:58 | PCM.NOTE ---
Date and Time: 08/18/18954 Subjective Assessment: boyfriend is present at bedside this morning, he feels Kanchan is improving and more cheerful this morning. she is confused and thought she was watching a ballgame but pleasant, she denies any complaints of pain, feels cold Objective Exam General Appearance: cachetic Neurologic Exam: alert, No oriented x 3 Skin Exam: normal color, warm, dry Respiratory Exam: crackles/rales Cardiovascular Exam: regular rate/rhythm, normal heart sounds Gastrointestinal/Abdomen Exam: soft, No tenderness, No mass OBJECTIVE DATA Vital Signs: Vital Signs - 24 hr Temp Pulse Resp BP Pulse Ox 08/18/18 07:46 95 08/18/18 07:32 98.4 F 97 H 20 117/68 95 08/18/18 04:00 98.2 F 94 H 16 101/56 96 08/18/18 00:15 98.6 F 98 H 16 102/61 95 08/18/18 00:00 95 08/17/18 20:43 102 H 16 95 08/17/18 20:00 100.6 F 121 H 18 110/61 96 08/17/18 18:00 93 L 08/17/18 16:00 99.3 F 103 H 16 109/55 93 L 08/17/18 14:00 95 08/17/18 12:00 98.3 F 106 H 16 168/91 08/17/18 10:57 91 H 16 94 L Pain Assessment - Last Documented Pain Intensity 0 [facility] Intake and Output: Intake & Output 08/15/18 08/16/18 08/17/18 08/18/18 11:59 11:59 11:59 11:59 Intake Total 1681 1468 1173 1975 Output Total 50 800 Balance 6666 916 2919 1975 Weight 51.1 kg 51.1 kg 50 kg 50.1 kg Lab Results: Lab Results-Last 24 Hours 08/17/18 08/17/18 08/18/18 Range/Units 05:40 05:40 05:30 WBC 6.8 (4.0-10.5) K/mm3 RBC 2.18 L (4.1-5.4) M/mm3 Hgb 7.3 L (12.0-16.0) gm/dl Hct 21.8 L (35-47) % MCV 100.0 (78-100) fl MCH 33.4 H (26-32) pg MCHC 33.5 (32-36) g/dl RDW 13.8 (11.5-14.0) % Plt Count 269 (150-450) K/mm3 MPV 9.3 (6-9.5) fl Segmented Neutrophils 81 H (36.0-66.0) % Lymphocytes (Manual) 12 L (24-44) % Monocytes (Manual) 5 (0.0-12.0) % Eosinophils (Manual) 2 (0.00-3.0) % Platelet Estimate NORMAL (NORMAL) RBC Morphology ABNORMAL Poikilocytosis 1+ Anisocytosis 1+ Sodium (137-145) mmol/L Potassium (3.5-5.1) mmol/L Chloride (98-107) mmol/L Carbon Dioxide (22-30) mmol/L Anion Gap (5-15) MEQ/L BUN (7-17) mg/dL Creatinine (0.52-1.04) mg/dL Estimated GFR ML/MIN Glucose (74-106) mg/dL Calcium (8.4-10.2) mg/dL Total Bilirubin (0.2-1.3) mg/dL AST (14-36) U/L ALT (0-35) U/L Alkaline Phosphatase (38-126) U/L Serum Total Protein (6.3-8.2) g/dL Albumin (3.5-5.0) g/dL Vitamin B12 Cancelled 677 08/18/18 Range/Units 05:30 WBC (4.0-10.5) K/mm3 RBC (4.1-5.4) M/mm3 Hgb (12.0-16.0) gm/dl Hct (35-47) % MCV (78-100) fl MCH (26-32) pg MCHC (32-36) g/dl RDW (11.5-14.0) % Plt Count (150-450) K/mm3 MPV (6-9.5) fl Segmented Neutrophils (36.0-66.0) % Lymphocytes (Manual) (24-44) % Monocytes (Manual) (0.0-12.0) % Eosinophils (Manual) (0.00-3.0) % Platelet Estimate (NORMAL) RBC Morphology Poikilocytosis Anisocytosis Sodium 133 L (137-145) mmol/L Potassium 3.6 (3.5-5.1) mmol/L Chloride 105 (98-107) mmol/L Carbon Dioxide 22 (22-30) mmol/L Anion Gap 9.1 (5-15) MEQ/L BUN 2 L (7-17) mg/dL Creatinine 0.38 L (0.52-1.04) mg/dL Estimated GFR > 60.0 ML/MIN Glucose 81 (74-106) mg/dL Calcium 7.9 L (8.4-10.2) mg/dL Total Bilirubin 0.30 (0.2-1.3) mg/dL AST 33 (14-36) U/L ALT 16 (0-35) U/L Alkaline Phosphatase 89 (38-126) U/L Serum Total Protein 4.8 L (6.3-8.2) g/dL Albumin 1.9 L (3.5-5.0) g/dL Vitamin B12 Assessment/Plan (1) Pneumonia Current Visit: Yes Status: Acute Qualifiers: Laterality: right Lung location: lower lobe of lung Assessment & Plan: continue levaquin, clinically seems to be improving Code(s): J18.9 - PNEUMONIA, UNSPECIFIED ORGANISM (2) Anemia Current Visit: Yes Status: Acute Qualifiers: Anemia type: iron deficiency Assessment & Plan: h/h stable Code(s): D64.9 - ANEMIA, UNSPECIFIED (3) History of ETOH abuse Current Visit: Yes Status: Acute Code(s): F10.11 - ALCOHOL ABUSE, IN REMISSION (4) Hyponatremia Current Visit: Yes Status: Acute Assessment & Plan: improving Code(s): E87.1 - HYPO-OSMOLALITY AND HYPONATREMIA (5) Lung mass Current Visit: Yes Status: Acute Code(s): R91.8 - OTHER NONSPECIFIC ABNORMAL FINDING OF LUNG FIELD (6) Hypokalemia Current Visit: Yes Status: Acute Assessment & Plan: K normal today Code(s): E87.6 - HYPOKALEMIA
[2018-08-18] MEDS: Advair Hfa 230/21 Mcg COMMON CANISTER IH SCH ×2 (11:49→21:43)
[2018-08-18] MEDS: Spiriva 18 Mcg/Cap Inhaler IH SCH (11:49)
[2018-08-18] MEDS: TYLENOL 325 MG PO PRN (23:42)
[2018-08-19 05:02] LABS: Hematocrit 19.3 % (35-47); Mean Corpuscular Hgb Concent. 33.2 g/dl (32-36); Mean Platelet Volume 9.3 fl (6-9.5); Platelet Count 259 K/mm3 (150-450); Red Blood Count 1.93 M/mm3 (4.1-5.4); Red Cell Distribution Width 13.9 % (11.5-14.0); White Blood Count 7.7 K/mm3 (4.0-10.5)
[2018-08-19 05:06] LABS: Mean Corpuscular Hemoglobin 33.1 pg (26-32)
[2018-08-19 05:07] LABS: Hemoglobin 6.4 gm/dl (12.0-16.0)
[2018-08-19 05:08] LABS: ALBUMIN 1.8 g/dL (3.5-5.0); ALKALINE PHOSPHATASE 89 U/L (38-126); ANION GAP 9.5 MEQ/L (5-15); BLOOD UREA NITROGEN 5 mg/dL (7-17); CHLORIDE 101 mmol/L (98-107); Calcium 7.6 mg/dL (8.4-10.2); Carbon Dioxide 21 mmol/L (22-30); Creatinine 1 0.37 mg/dL (0.52-1.04); Glucose 73 mg/dL (74-106); SGOT/AST 27 U/L (14-36); SGPT/ALT 15 U/L (0-35); SODIUM 128 mmol/L (137-145); Total Protein 4.7 g/dL (6.3-8.2)
[2018-08-19] MEDS: Advair Hfa 230/21 Mcg COMMON CANISTER IH SCH ×2 (08:12→20:11)
[2018-08-19] MEDS: Spiriva 18 Mcg/Cap Inhaler IH SCH (08:12)
--- NOTE | 2018-08-19 08:37 | CONS ---
CONSULT DATE: 08/16/2018 REASON FOR CONSULT: Hyponatremia. HISTORY: The patient is a 58 year-old lady who has multiple medical problems who apparently was at Dr. Ann office and was found to have shortness of breath, lethargic, confusion and lung mass. She was admitted to [facility] for further evaluation and management. She was found to have a lung mass which was confirmed. She underwent a biopsy of the lung mass to find out the diagnosis. Also, she was found to have sodium of 121 along with hypoxia. Nephrology services consulted for hyponatremia. The patient is a very poor historian. She is confused. No family was at bedside. History taken from the records. The patient apparently has history of alcohol abuse. She appears cachectic, malnourished. She has not been eating well. She apparently had recent hospitalization at [facility] and apparently left without further investigation or management there. She continues to lose weight. She denies any active vomiting but she is confused. REVIEW OF SYSTEMS: Unobtainable from the patient given the fact that she is confused. No family members at bedside. As per nurse, no active vomiting or diarrhea. The patient is not eating much. She is very weak. All other systems on review of systems were limited. PAST MEDICAL HISTORY: Hypertension. Chronic obstructive pulmonary disease. Alcohol and tobacco abuse. Chronic obstructive pulmonary disease. Lung mass. PAST SURGICAL HISTORY: Adenoidectomy. Tonsillectomy. MEDICATIONS: Home medicine and hospital medications reviewed. Her home medicines include lisinopril along with furosemide. ALLERGIES: ADACEL. PENICILLIN. FLUARIX. SOCIAL HISTORY: Tobacco abuse. Alcohol abuse. Other social history cannot be verified. She apparently lives with her boyfriend and sister. Again, this cannot be verified. FAMILY HISTORY: Positive for heart disease in father. Diabetes in mother. Multiple myeloma in sister. History is limited as patient is confused. PHYSICAL EXAMINATION: The patient is confused, not in any acute distress. Vital signs reviewed. The patient is cachectic, malnourished, very pale and weak. HEENT: Head - Atraumatic, normocephalic. Eyes - Positive icterus. No pallor. ENT: Mucosa moist. NECK: No JVD. Trachea midline. CHEST: Decreased breath sounds. Rhonchi. Occasional wheeze. No respiratory distress. CVS: Appears regular. No peripheral edema. ABDOMEN: Soft, nontender. Positive bowel sounds. No organomegaly. EXTREMITIES: No peripheral edema. NEURO: The patient is confused, trying to move her extremities, trying to respond to pain, not answering questions appropriately. PSYCH: Difficult to assess due to confusion. SKIN: Warm and dry. LAB DATA AND TESTS: Urine osmolality 358. Magnesium 1.7. Hemoglobin 7.8, white blood cell 8.4. Yesterday hemoglobin was 7.2. Sodium yesterday was 121. Potassium 3.6. Today the sodium is 132, potassium 3.3. X-ray right lung mass seen. ASSESSMENT AND PLAN: A 58 year-old lady with medical problems of: 1) Hyponatremia. The patient's hyponatremia is secondary to lung mass. I agree with Samsca another dose. I will stop the Furosemide. 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 Monitor sodium level. Will use periodic Samsca until sodium is corrected and underlying cancer treatment can be started. Also, increasing nutrition will help and increasing and replacing potassium will help. 3) Hypokalemia. I will replace potassium and monitor closely. 4) Anemia. Check vitamin B12 and iron levels, folic acid, monitor hemoglobin closely. 5) Hypertension. The patient will be recommended antihypertensive and monitoring blood pressure. 6) Chronic obstructive pulmonary disease with lung mass status post biopsy. Management per pulmonology. 7) Alcohol abuse and tobacco abuse. The patient counseled but no family member present and patient is confused. 8) Malnutrition, cachexia. Likely related to malignancy. Further management per primary team. Thank you for the consultation on this patient. Please do not hesitate to contact me for any questions.
--- NOTE | 2018-08-19 08:45 | PCM.NOTE ---
Date and Time: 08/19/18 0840 Subjective Assessment: Patient reports she has had some diarrhea. She denies constipation, nausea or vomiting. Her boyfriend is at the bedside. Her sister came to see her on Sunday. Patient continues to have poor oral intake and weakness. Patient wants to go home but continues to have confusion and would be by herself during the day while her boyfriend works. She reports that her cough has completely gone away. She denies hearing things or seeing things that other people do not hear or see. 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.) Skin Exam: normal color, warm, other (thin, multiple small bruises on arms bilat ) Respiratory Exam: other (decreased breath sounds in right base and clear on right, no crackles, no wheezes) Cardiovascular Exam: regular rate/rhythm, No murmur, No friction rub, No gallop Gastrointestinal/Abdomen Exam: soft, normal bowel sounds, No tenderness, No distention, No mass Extremity Exam: other (no c/c/e) OBJECTIVE DATA Vital Signs: Vital Signs - 24 hr Temp Pulse Resp BP Pulse Ox 08/19/18 07:51 97.9 F 100 H 18 103/54 96 08/19/18 04:53 97 08/19/18 04:00 98.3 F 94 H 16 118/62 95 08/19/18 01:00 96 08/19/18 00:00 98.6 F 113 H 18 121/69 95 08/18/18 21:47 104 H 20 91 L 08/18/18 20:00 98.5 F 104 H 16 108/57 96 08/18/18 18:55 95 08/18/18 15:13 95 08/18/18 15:12 98 F 74 20 124/68 95 08/18/18 12:12 98.4 F 78 20 126/80 96 08/18/18 11:50 91 H 20 96 Pain Assessment - Last Documented Pain Intensity 0 Pain Scale Used 0-10 Pain Scale Intake and Output: Intake & Output 08/17/18 08/18/18 08/19/18 08/20/18 06:59 06:59 06:59 06:59 Intake Total 1172 1975 1621 Balance 1172 1975 1621 Weight 50 kg 50.1 kg Lab Results: Lab Results-Last 24 Hours 08/19/18 08/19/18 Range/Units 04:54 04:54 WBC 7.7 (4.0-10.5) K/mm3 RBC 1.93 L (4.1-5.4) M/mm3 Hgb 6.4 L* (12.0-16.0) gm/dl Hct 19.3 L (35-47) % MCV 100.0 (78-100) fl MCH 33.1 H (26-32) pg MCHC 33.2 (32-36) g/dl RDW 13.9 (11.5-14.0) % Plt Count 259 (150-450) K/mm3 MPV 9.3 (6-9.5) fl Sodium 128 L (137-145) mmol/L Potassium 4.0 (3.5-5.1) mmol/L Chloride 101 (98-107) mmol/L Carbon Dioxide 21 L (22-30) mmol/L Anion Gap 9.5 (5-15) MEQ/L BUN 5 L (7-17) mg/dL Creatinine 0.37 L (0.52-1.04) mg/dL Estimated GFR > 60.0 ML/MIN Glucose 73 L (74-106) mg/dL Calcium 7.6 L (8.4-10.2) mg/dL Total Bilirubin 0.30 (0.2-1.3) mg/dL AST 27 (14-36) U/L ALT 15 (0-35) U/L Alkaline Phosphatase 89 (38-126) U/L Serum Total Protein 4.7 L (6.3-8.2) g/dL Albumin 1.8 L (3.5-5.0) g/dL Multi-Disciplinary Progress Notes: Multi-Disciplinary Progress Notes 08/18/18 11:25 Case Management Note by Alissa Salguero CHECKED WITH PT'S INSURANCE, SNF PROVIDERS IN NETWORK NEAR PT'S HOME: [facility] IN [place], [facility] IN [place], AND [facility] IN [place]. Initialized on 08/18/18 11:25 - END OF NOTE Assessment/Plan (1) Lung mass Current Visit: Yes Status: Acute Assessment & Plan: Awaiting lung biopsy results. Code(s): R91.8 - OTHER NONSPECIFIC ABNORMAL FINDING OF LUNG FIELD (2) Hypoxia Current Visit: Yes Status: Resolved Code(s): R09.02 - HYPOXEMIA (3) COPD with hypoxia Current Visit: No Status: Acute Assessment & Plan: Continue current treatment. Code(s): J44.9 - CHRONIC OBSTRUCTIVE PULMONARY DISEASE, UNSPECIFIED; R09.02 - HYPOXEMIA (4) Pneumonia Current Visit: Yes Status: Acute Qualifiers: Laterality: right Lung location: lower lobe of lung Assessment & Plan: She has completed 7 days of levofloxacin so will discontinue levofloxacin. She is off oxygen now and had no cough when I was in the room. Code(s): J18.9 - PNEUMONIA, UNSPECIFIED ORGANISM (5) Hyponatremia Current Visit: Yes Status: Acute Assessment & Plan: Continues to be low. Dr. Chao is following. Code(s): E87.1 - HYPO-OSMOLALITY AND HYPONATREMIA (6) History of ETOH abuse Current Visit: Yes Status: Acute Code(s): F10.11 - ALCOHOL ABUSE, IN REMISSION (7) Gait instability Current Visit: Yes Status: Acute Assessment & Plan: She is unstable with ambulation and I do not think she would be safe to return to home as she would be a lone for part of the day since her boyfriend works. She is a high fall risk. Code(s): R26.81 - UNSTEADINESS ON FEET (8) Weight loss Current Visit: Yes Status: Acute (9) Anemia Current Visit: Yes Status: Acute Qualifiers: Anemia type: iron deficiency Assessment & Plan: Her hemoglobin was below 7 today; will transfuse 2 units packed red blood cells. Continue with ferrous sulfate oral. Code(s): D64.9 - ANEMIA, UNSPECIFIED (10) Hypokalemia Current Visit: Yes Status: Resolved Assessment & Plan: Her potassium is normal today. Code(s): E87.6 - HYPOKALEMIA (11) Hypomagnesemia Current Visit: Yes Status: Acute Code(s): E83.42 - HYPOMAGNESEMIA
[2018-08-19 09:00] LABS: ABO TYPING A; Antibody Screen NEGATIVE (NEGATIVE); RH TYPING POSITIVE
[2018-08-19] MEDS: Sodium Chloride 0.9% 1000 ML 1,000 ML IV SCH (09:22)
[2018-08-19] MEDS: MAG-OX 400 PO SCH ×2 (09:41→22:29)
[2018-08-19] MEDS: VITAMIN B-1 100 MG PO SCH (09:41)
[2018-08-19] MEDS: FEOSOL 325 MG PO SCH ×2 (09:41→22:29)
[2018-08-19] MEDS: CLARITIN 10 MG PO SCH (09:41)
[2018-08-19] MEDS: THERAGRAN MULTIVITAMIN PO SCH (09:41)
[2018-08-19] MEDS: Klor Con 10 MEQ PO SCH ×3 (09:41→22:29)
[2018-08-19] MEDS: Magnesium 1 Gm / 100 Ml D5W*** 100 ML IV SCH ×2 (12:37→13:11)
[2018-08-19] MEDS ORDERED: NON-FORMULARY ITEM PO ONE (17:00)
[2018-08-19 19:32] LABS: Hematocrit 31.6 % (35-47); Hemoglobin 10.9 gm/dl (12.0-16.0)
[2018-08-20 06:31] LABS: ANION GAP 10.4 MEQ/L (5-15); BLOOD UREA NITROGEN 6 mg/dL (7-17); CHLORIDE 105 mmol/L (98-107); Calcium 8.1 mg/dL (8.4-10.2); Carbon Dioxide 21 mmol/L (22-30); Creatinine 1 0.38 mg/dL (0.52-1.04); Glucose 76 mg/dL (74-106); Potassium 4.2 mmol/L (3.5-5.1); SODIUM 132 mmol/L (137-145)
[2018-08-20] MEDS: Advair Hfa 230/21 Mcg COMMON CANISTER IH SCH ×2 (07:25→20:14)
[2018-08-20] MEDS: Spiriva 18 Mcg/Cap Inhaler IH SCH (07:25)
[2018-08-20] MEDS ORDERED: PHARMACY DOSING REQUEST MC ONE (08:38)
--- NOTE | 2018-08-20 08:58 | PCM.NOTE ---
Date and Time: 08/20/18 0853 Subjective Assessment: Patient's biopsy came back as organizing pneumonia with possible abscess ( please see full report for details). Dr. Usman Blas was called with results to see if he could see her again today. He states he is out of town for 2 weeks. He wanted her to start meropenem 500 mg IV q 8 hours (wanted zosyn but she is allergic to this) and clindamycin. Then he wants a repeat CT scan after she finishes 7 to 10 days of antibiotics. Patient reports some diarrhea once a day which she attributes to the ensure once a day. - Review of Systems Constitutional: Weakness Eyes: No Symptoms Ears, Nose, & Throat: No Symptoms Respiratory: No Symptoms Cardiac: No Symptoms Abdominal/Gastrointestinal: No Symptoms Genitourinary Symptoms: No Symptoms Musculoskeletal: No Symptoms Objective Exam General Appearance: no apparent distress, cachetic, thin Neurologic Exam: alert, other (oriented to place, person but states year is 2005.) Skin Exam: normal color, warm, dry Respiratory Exam: other (decreased breath sounds at right base, no wheezes, no crackles) Cardiovascular Exam: regular rate/rhythm, No murmur, No friction rub, No gallop Gastrointestinal/Abdomen Exam: soft, normal bowel sounds, No tenderness, No distention, No mass Extremity Exam: other (no c/c/e; IV in left hand) OBJECTIVE DATA Vital Signs: Vital Signs - 24 hr Temp Pulse Resp BP Pulse Ox 08/20/18 07:32 98.5 F 98 H 16 103/55 92 L 08/20/18 04:00 99 F 98 H 18 113/58 97 08/20/18 00:00 99.6 F 109 H 18 122/77 92 L 08/19/18 20:12 105 H 16 92 L 08/19/18 20:00 98.9 F 103 H 16 120/75 92 L 08/19/18 17:00 96 08/19/18 16:00 99.7 F 105 H 107/73 08/19/18 13:00 96 08/19/18 11:37 98.4 F 105 H 18 108/55 96 Pain Assessment - Last Documented Pain Intensity 0 Pain Scale Used [facility] Intake and Output: Intake & Output 06/23/19 06/24/19 06/25/19 06/26/19 06:59 06:59 06:59 06:59 Intake Total 1975 1622 910 Balance 1975 1622 910 Weight 52.3 kg 54.3 kg Lab Results: Lab Results-Last 24 Hours 08/15/18 08/19/18 08/19/18 Range/Units 09:40 05:00 07:05 Hgb (12.0-16.0) gm/dl Hct (35-47) % Sodium (137-145) mmol/L Potassium (3.5-5.1) mmol/L Chloride (98-107) mmol/L Carbon Dioxide (22-30) mmol/L Anion Gap (5-15) MEQ/L BUN (7-17) mg/dL Creatinine (0.52-1.04) mg/dL Estimated GFR ML/MIN Glucose (74-106) mg/dL Calcium (8.4-10.2) mg/dL Magnesium 1.4 L (1.6-2.3) mg/dL Stool Occult Blood (Negative) Surg PTH Diagnosis See Note H ABO Group A Rh Factor POSITIVE Antibody Screen NEGATIVE (NEGATIVE) Crossmatch (COMPATIBLE) 08/19/18 08/19/18 08/19/18 Range/Units 07:05 07:05 14:22 Hgb (12.0-16.0) gm/dl Hct (35-47) % Sodium (137-145) mmol/L Potassium (3.5-5.1) mmol/L Chloride (98-107) mmol/L Carbon Dioxide (22-30) mmol/L Anion Gap (5-15) MEQ/L BUN (7-17) mg/dL Creatinine (0.52-1.04) mg/dL Estimated GFR ML/MIN Glucose (74-106) mg/dL Calcium (8.4-10.2) mg/dL Magnesium (1.6-2.3) mg/dL Stool Occult Blood NEGATIVE (Negative) Surg PTH Diagnosis ABO Group Rh Factor Antibody Screen (NEGATIVE) Crossmatch COMPATIBLE (COMPATIBLE) 08/19/18 08/19/18 08/20/18 Range/Units 16:40 19:15 05:30 Hgb 10.9 L D (12.0-16.0) gm/dl Hct 31.6 L (35-47) % Sodium 132 L (137-145) mmol/L Potassium 4.2 (3.5-5.1) mmol/L Chloride 105 (98-107) mmol/L Carbon Dioxide 21 L (22-30) mmol/L Anion Gap 10.4 (5-15) MEQ/L BUN 6 L (7-17) mg/dL Creatinine 0.38 L (0.52-1.04) mg/dL Estimated GFR > 60.0 ML/MIN Glucose 76 (74-106) mg/dL Calcium 8.1 L (8.4-10.2) mg/dL Magnesium (1.6-2.3) mg/dL Stool Occult Blood NEGATIVE (Negative) Surg PTH Diagnosis ABO Group Rh Factor Antibody Screen (NEGATIVE) Crossmatch (COMPATIBLE) 08/20/18 Range/Units 05:30 Hgb (12.0-16.0) gm/dl Hct (35-47) % Sodium (137-145) mmol/L Potassium (3.5-5.1) mmol/L Chloride (98-107) mmol/L Carbon Dioxide (22-30) mmol/L Anion Gap (5-15) MEQ/L BUN (7-17) mg/dL Creatinine (0.52-1.04) mg/dL Estimated GFR ML/MIN Glucose (74-106) mg/dL Calcium (8.4-10.2) mg/dL Magnesium 2.0 (1.6-2.3) mg/dL Stool Occult Blood (Negative) Surg PTH Diagnosis ABO Group Rh Factor Antibody Screen (NEGATIVE) Crossmatch (COMPATIBLE) Multi-Disciplinary Progress Notes: Multi-Disciplinary Progress Notes 08/20/18 08:16 Case Management Note by Alissa Salguero CALL TO [facility] TO F/U ON REFERRAL MADE YESTERDAY. LEFT MESSAGE, TO CALL BACK. Initialized on 08/20/18 08:16 - END OF NOTE 08/19/18 14:48 Physical Therapy Note by Carolyn Menard PATIENT HGB 6.4 - 2 UNITS PRBC'S TO BE TRANSFUSED TODAY. Initialized on 08/19/18 14:48 - END OF NOTE 08/19/18 13:43 Nutrition Note by Shanique Serrano F/u note: Regular diet with ensure con't with 25% po intake. Labs 08/19= Mg 1.4, hgb 6.4, hct 19.3, +fluid blance 1976 mls. weight 52.3 kg. Pt states she is eating more , sometimes not hungry and when she does think something sounds good and orders it, by the time it arrives it doesn't sound good anymore. Encouraged her to call the kitchen when something sounds good and they will deliver it right then. Will con't to monitor and f/u prn. TChris REDDCD Initialized on 08/19/18 13:43 - END OF NOTE 08/19/18 13:42 Case Management Note by Alissa Salguero SPOKE WITH KATHARINE AT [facility], REFERRAL FAXED AT THIS TIME TO [phone]. Initialized on 08/19/18 13:42 - END OF NOTE 08/19/18 13:39 Case Management Note by Alissa Salguero DISCUSSION WITH KITTY PT'S SISTER TO REPORT THAT THEY WERE NOT GOING TO HAVE A BED FOR PT ON DISCHARGE AT [facility] ON DISCHARGE. DISCUSSED THE OTHER 2 FACILITIES IN NETWORK WITH INSURANCE. KITTY REQUESTS THAT CASE MANAGEMENT HAVE A DISCUSSION WITH PT REGARDING MOVING TO [place] TO BE CLOSER TO SISTER. THIS SENIOR PATROL AGENT DID HAVE THAT DISCUSSION, BUT PT IS HESITANT TO MOVE AT THIS TIME AWAY FROM HER BOYFRIEND BRIANNA. REPORTS THAT SHE WANTS TO TRY FOR A BED AT [facility] IN [place]. Initialized on 08/19/18 13:39 - END OF NOTE 08/19/18 13:38 Case Management Note by Alissa Salguero CALL FROM SULLY AT [facility], REPORTS THAT THEY ARE UNABLE TO TAKE PT. Initialized on 08/19/18 13:38 - END OF NOTE 08/19/18 11:08 Case Management Note by Alissa Salguero REFERRAL FAXED TO [facility] AT THIS TIME PER PT/FAMILY REQUEST FOR REHAB STAY PRIOR TO DISCHARGE HOME. Initialized on 08/19/18 11:08 - END OF NOTE 08/19/18 10:34 Case Management Note by Alissa Salguero LONG DISCUSSION WITH PT'S SISTER, KITTY. DISCUSSED TRANSITIONING TO SKILLED NURSING IF INSURANCE WILL COVER SC REHAB. KITTY REPORTS THAT SHE IS NEXT OF KIN ALONG WITH BROTHER. DISCUSSED GETTING POA ESTABLISHED FOR MEDICAL/FINANCIAL DECISIONS. ALSO, KITTY, REPORTS THAT SHE LIVES AND WORKS IN [place], [place], AND IF PT HAS TO BE IN SKILLED NURSING SECURITY CHECKER THEN SHE WILL ASK FOR PT TO BE TRANSFERRED TO SKILLED NURSING IN HER HOME TOWN. DISCUSSED THAT SHE HAS BEEN TALKING WITH BOYFRIEND BRIANNA, AND THEY ARE GOING TO SEE IF THEY CAN REACH OUT TO FRIENDS TO SEE ABOUT HAVING 24/7 CARE AT HOME, AFTER REHAB STAY. ALSO, DISCUSSED THAT IF PT WILL NEED TO BE IN SKILLED NURSING GROUP HOME, THEN THEY WILL NEED TO APPLY FOR MEDICAID. DISCUSSED THAT THE UPHOLSTERER [employer]SEM[employer]Y LINE AT THE SKILLED NURSING CAN ASSIST WITH THIS, BUT SOMEONE WILL NEED TO HAVE HER FINANCIAL RECORDS TO ASSIST. KITTY REPORTS THAT SHE IS IN AGREEMENT WITH [facility] IN [place], AND IS GOING TO RESEARCH FACILITIES IN HER AREA, JUST IN CASE THIS BECOMES GROUP HOME, UNDERSTANDS THAT PT IS NOT SAFE TO BE AT HOME BY HERSELF AT THIS TIME. UNDERSTANDS THAT WE ARE WAITING ON PATHOLOGY REPORT FROM [facility]. DENIES ADDNL NEEDS AT THIS TIME. WILL FOLLOW. Initialized on 08/19/18 10:34 - END OF NOTE Assessment/Plan (1) Organizing pneumonia Current Visit: Yes Status: Acute Assessment & Plan: Discussed with Dr. Usman Blas as described in subjective above. Will start Meropenem and clindamycin x 7-10 days and plan to repeat Chest CT after finishing the antibiotics. May need a PICC line if she goes for a rehab stay outside of our facility. Off of oxygen currently. Code(s): J84.89 - OTHER SPECIFIED INTERSTITIAL PULMONARY DISEASES (2) Lung mass Current Visit: Yes Status: Acute Assessment & Plan: Biopsy came back organizing pneumonia and possible abscess. Discussed with Dr. Usmna Blas as above. Code(s): R91.8 - OTHER NONSPECIFIC ABNORMAL FINDING OF LUNG FIELD (3) COPD with hypoxia Current Visit: No Status: Acute Code(s): J44.9 - CHRONIC OBSTRUCTIVE PULMONARY DISEASE, UNSPECIFIED; R09.02 - HYPOXEMIA (4) Hyponatremia Current Visit: Yes Status: Acute Assessment & Plan: Patient has had 3 total doses of Samsca during her hospitalization. Dr. Carreno continues to follow. Code(s): E87.1 - HYPO-OSMOLALITY AND HYPONATREMIA (5) History of ETOH abuse Current Visit: Yes Status: Acute Assessment & Plan: Continue multivitamin and thiamine. Code(s): F10.11 - ALCOHOL ABUSE, IN REMISSION (6) Gait instability Current Visit: Yes Status: Acute Assessment & Plan: Continue PT. Code(s): R26.81 - UNSTEADINESS ON FEET (7) Weight loss Current Visit: Yes Status: Acute Assessment & Plan: Continue Ensure and encourage oral intake. (8) Anemia Current Visit: Yes Status: Acute Qualifiers: Anemia type: iron deficiency Assessment & Plan: Given 2 units of PRBC's yesterday. One stool sample negative for blood. Continue ferrous sulfate. Code(s): D64.9 - ANEMIA, UNSPECIFIED (9) Hypokalemia Current Visit: Yes Status: Resolved Assessment & Plan: Normal today. Code(s): E87.6 - HYPOKALEMIA (10) Hypomagnesemia Current Visit: Yes Status: Acute Assessment & Plan: Given 2 grams of magnesium sulfate yesterday. Will check magnesium daily. Code(s): E83.42 - HYPOMAGNESEMIA
[2018-08-20] MEDS: MERREM 500MG 500 MG in Sodium Chloride 100ML MINI-BAG PLUS 100 ML IV SCH ×2 (10:05→18:21)
[2018-08-20] MEDS: THERAGRAN MULTIVITAMIN PO SCH (10:06)
[2018-08-20] MEDS: FEOSOL 325 MG PO SCH ×2 (10:06→22:01)
[2018-08-20] MEDS: VITAMIN B-1 100 MG PO SCH (10:06)
[2018-08-20] MEDS: CLARITIN 10 MG PO SCH (10:06)
[2018-08-20] MEDS: MAG-OX 400 PO SCH ×2 (10:07→22:01)
[2018-08-20] MEDS: CLINDAMYCIN-D5W 600 MG/50 ML*** 600 MG/50 ML BAG IV SCH ×2 (11:21→22:01)
[2018-08-20] MEDS: Klor Con 10 MEQ PO SCH ×2 (11:21→22:01)
[2018-08-20] MEDS: PHARMACY DOSING REQUEST MC ONE ×2 (11:22→11:23)
[2018-08-20 14:42] LABS: 027 TOX PROD PRESUMPTIVE NEGATIVE (NEGATIVE)
[2018-08-20] MEDS: Sodium Chloride 0.9% 1000 ML 1,000 ML IV SCH (20:49)
[2018-08-21 05:47] LABS: BASOPHIL % 0.2 % (0.0-0.4); Basophil (Absolute #) 0.02 (0-0.4); Eosinophil % 1.2 % (0.00-5.0); Eosinophil (Absolute #) 0.12 (0-0.5); Granulocyte Absolute (ANC) 8.05 (1.4-6.9); Granulocytes % 79.3 % (36.0-66.0); Hematocrit 30.6 % (35-47); Hemoglobin 10.3 gm/dl (12.0-16.0); Lymphocyte (Absolute #) 1.08 (1.0-4.6); Lymphocytes % 10.7 % (24.0-44.0); Mean Cell Volume 92.7 fl (78-100); Mean Corpuscular Hemoglobin 31.2 pg (26-32); Mean Corpuscular Hgb Concent. 33.7 g/dl (32-36); Mean Platelet Volume 9.2 fl (6-9.5); Monocytes % 8.6 % (0.0-12.0); Platelet Count 311 K/mm3 (150-450); Red Cell Distribution Width 16.6 % (11.5-14.0); White Blood Count 10.1 K/mm3 (4.0-10.5)
[2018-08-21] MEDS: MERREM 500MG 500 MG in Sodium Chloride 100ML MINI-BAG PLUS 100 ML IV SCH ×2 (06:02→08:18)
[2018-08-21] MEDS: CLINDAMYCIN-D5W 600 MG/50 ML*** 600 MG/50 ML BAG IV SCH ×2 (06:03→13:19)
[2018-08-21 06:06] LABS: ANION GAP 12.5 MEQ/L (5-15); BLOOD UREA NITROGEN 6 mg/dL (7-17); CHLORIDE 99 mmol/L (98-107); Calcium 8.2 mg/dL (8.4-10.2); Carbon Dioxide 20 mmol/L (22-30); Creatinine 1 0.38 mg/dL (0.52-1.04); Glucose 69 mg/dL (74-106); MAGNESIUM 1.6 mg/dL (1.6-2.3); Potassium 3.9 mmol/L (3.5-5.1); SODIUM 128 mmol/L (137-145)
[2018-08-21] MEDS: Spiriva 18 Mcg/Cap Inhaler IH SCH (07:26)
[2018-08-21] MEDS: Advair Hfa 230/21 Mcg COMMON CANISTER IH SCH (07:26)
[2018-08-21] MEDS: Sodium Chloride 0.9% 1000 ML 1,000 ML IV SCH (08:11)
[2018-08-21] MEDS: PHARMACY DOSING REQUEST MC ONE (08:11)
[2018-08-21] MEDS: MAG-OX 400 PO SCH (08:20)
[2018-08-21] MEDS: VITAMIN B-1 100 MG PO SCH (08:20)
[2018-08-21] MEDS: FEOSOL 325 MG PO SCH (08:20)
[2018-08-21] MEDS: CLARITIN 10 MG PO SCH (08:20)
[2018-08-21] MEDS: THERAGRAN MULTIVITAMIN PO SCH (08:20)
[2018-08-21] MEDS: Klor Con 10 MEQ PO SCH (08:20)
--- NOTE | 2018-08-21 08:35 | PCM.NOTE ---
Date and Time: 08/21/18828 Subjective Assessment: Patient reports some back pain. She denies shortness of breath or cough. She states that her diarrhea has slowed down. - Review of Systems Constitutional: Weakness Eyes: No Symptoms Ears, Nose, & Throat: No Symptoms Respiratory: No Symptoms Cardiac: No Symptoms Abdominal/Gastrointestinal: No Symptoms Genitourinary Symptoms: No Symptoms Musculoskeletal: Back Pain Objective Exam General Appearance: no apparent distress, cachetic, thin Neurologic Exam: alert, other (says she is in a hospital in [place] and that the year is 2023; patient knows her name) Skin Exam: normal color, warm, dry, other (IV in left upper arm) Respiratory Exam: other (decreased breath sounds in right lower lung field otherwise CTA and no wheezing) Cardiovascular Exam: regular rate/rhythm, normal heart sounds, No murmur, No friction rub, No gallop Gastrointestinal/Abdomen Exam: soft, normal bowel sounds, No tenderness, No distention, No mass Extremity Exam: normal inspection, other (no c/c/e) OBJECTIVE DATA Vital Signs: Vital Signs - 24 hr Temp Pulse Resp BP Pulse Ox 08/21/18 07:30 100 H 20 97 08/21/18 07:28 99 F 62 18 111/58 96 08/21/18 04:00 100.3 F 102 H 16 112/68 96 08/21/18 00:00 99.4 F 100 H 18 111/55 96 08/20/18 20:15 110 H 16 95 08/20/18 20:00 99.6 F 112 H 16 112/53 95 08/20/18 16:00 99.3 F 74 16 140/63 92 L 08/20/18 12:00 98.5 F 98 H 103/55 92 L Pain Assessment - Last Documented Pain Intensity 1 Pain Scale Used 0-10 Pain Scale,FLACC Intake and Output: Intake & Output 08/19/18 08/20/18 08/21/18 08/22/18 06:59 06:59 06:59 06:59 Intake Total 4387 549 4165 Balance 6107 253 3471 Weight 52.3 kg 54.3 kg 54.4 kg Lab Results: Lab Results-Last 24 Hours 08/20/18 08/20/18 08/21/18 Range/Units 10:03 Unknown 05:07 WBC 10.1 (4.0-10.5) K/mm3 RBC 3.30 L (4.1-5.4) M/mm3 Hgb 10.3 L (12.0-16.0) gm/dl Hct 30.6 L (35-47) % MCV 92.7 (78-100) fl MCH 31.2 (26-32) pg MCHC 33.7 (32-36) g/dl RDW 16.6 H (11.5-14.0) % Plt Count 311 (150-450) K/mm3 MPV 9.2 (6-9.5) fl Gran % 79.3 H (36.0-66.0) % Eos # (Auto) 0.12 (0-0.5) Absolute Lymphs (auto) 1.08 (1.0-4.6) Absolute Monos (auto) 0.87 (0.0-1.3) Lymphocytes % 10.7 L (24.0-44.0) % Monocytes % 8.6 (0.0-12.0) % Eosinophils % 1.2 (0.00-5.0) % Basophils % 0.2 (0.0-0.4) % Absolute Granulocytes 8.05 H (1.4-6.9) Basophils # 0.02 (0-0.4) Sodium (137-145) mmol/L Potassium (3.5-5.1) mmol/L Chloride (98-107) mmol/L Carbon Dioxide (22-30) mmol/L Anion Gap (5-15) MEQ/L BUN (7-17) mg/dL Creatinine (0.52-1.04) mg/dL Estimated GFR ML/MIN Glucose (74-106) mg/dL Calcium (8.4-10.2) mg/dL Magnesium (1.6-2.3) mg/dL Stool Occult Blood NEGATIVE (Negative) C. difficile Screen NEGATIVE (NEGATIVE) C.difficile [id number]-[id number] PRESUMPTIVE NEGATIVE (NEGATIVE) 08/21/18 Range/Units 05:07 WBC (4.0-10.5) K/mm3 RBC (4.1-5.4) M/mm3 Hgb (12.0-16.0) gm/dl Hct (35-47) % MCV (78-100) fl MCH (26-32) pg MCHC (32-36) g/dl RDW (11.5-14.0) % Plt Count (150-450) K/mm3 MPV (6-9.5) fl Gran % (36.0-66.0) % Eos # (Auto) (0-0.5) Absolute Lymphs (auto) (1.0-4.6) Absolute Monos (auto) (0.0-1.3) Lymphocytes % (24.0-44.0) % Monocytes % (0.0-12.0) % Eosinophils % (0.00-5.0) % Basophils % (0.0-0.4) % Absolute Granulocytes (1.4-6.9) Basophils # (0-0.4) Sodium 128 L (137-145) mmol/L Potassium 3.9 (3.5-5.1) mmol/L Chloride 99 (98-107) mmol/L Carbon Dioxide 20 L (22-30) mmol/L Anion Gap 12.5 (5-15) MEQ/L BUN 6 L (7-17) mg/dL Creatinine 0.38 L (0.52-1.04) mg/dL Estimated GFR > 60.0 ML/MIN Glucose 69 L (74-106) mg/dL Calcium 8.2 L (8.4-10.2) mg/dL Magnesium 1.6 (1.6-2.3) mg/dL Stool Occult Blood (Negative) C. difficile Screen (NEGATIVE) C.difficile [id number] (NEGATIVE) Multi-Disciplinary Progress Notes: Multi-Disciplinary Progress Notes 08/20/18 09:40 (created 08/20/18 15:49) Case Management Note by Alissa Salguero SPOKE WITH LUANN AT [facility], WILL START PRECERT TODAY, IF THE ARE ABLE TO OBTAIN PRECERT AND CAN ACCEPT PT THEY WOULD PREFER THAT SHE HAS A PICC LINE FOR IV ABX. Initialized on 08/20/18 15:49 - END OF NOTE Assessment/Plan (1) Organizing pneumonia Current Visit: Yes Status: Acute Assessment & Plan: Continue meropenem and clindamycin. Dr. Usman Blas has been following and wants her to have 7 days of these antibiotics and currently on Day 2. He then wanted another CT scan after these antibiotics were finished. Awaiting possible rehab placement for IV antibiotics and therapy. Consider PICC line if she is accepted for rehab. Code(s): J84.89 - OTHER SPECIFIED INTERSTITIAL PULMONARY DISEASES (2) Lung mass Current Visit: Yes Status: Acute Assessment & Plan: Biopsy showed organizing pneumonia with possible abscess but after antibiotics then plan to repeat CT scan of chest. Code(s): R91.8 - OTHER NONSPECIFIC ABNORMAL FINDING OF LUNG FIELD (3) COPD with hypoxia Current Visit: No Status: Acute Code(s): J44.9 - CHRONIC OBSTRUCTIVE PULMONARY DISEASE, UNSPECIFIED; R09.02 - HYPOXEMIA (4) Hyponatremia Current Visit: Yes Status: Acute Assessment & Plan: Continue current treatment. Code(s): E87.1 - HYPO-OSMOLALITY AND HYPONATREMIA (5) History of ETOH abuse Current Visit: Yes Status: Acute Assessment & Plan: Continue multivitamin and thiamine. Code(s): F10.11 - ALCOHOL ABUSE, IN REMISSION (6) Gait instability Current Visit: Yes Status: Acute Code(s): R26.81 - UNSTEADINESS ON FEET (7) Weight loss Current Visit: Yes Status: Acute Assessment & Plan: Dietary consult. Continue ensure. (8) Anemia Current Visit: Yes Status: Acute Qualifiers: Anemia type: iron deficiency Assessment & Plan: Stable after blood transfusion on Sunday. Continue iron. Code(s): D64.9 - ANEMIA, UNSPECIFIED (9) Hypokalemia Current Visit: Yes Status: Resolved Assessment & Plan: Stable on current dose of potassium. Code(s): E87.6 - HYPOKALEMIA (10) Hypomagnesemia Current Visit: Yes Status: Acute Assessment & Plan: Continue oral magnesium. Magnesium dropped from 2.0 yesterday to 1.6 today. Check daily. Code(s): E83.42 - HYPOMAGNESEMIA
[2018-08-21 11:15] VITALS: PULSE 68
[2018-08-21] MEDS: TYLENOL 325 MG PO PRN (11:36)
[2018-08-21 13:32] LABS: INR 1.23 (0.8-3.0); PROTIME 13.9 SECONDS (9.95-12.35)
[2018-08-21] MEDS ORDERED: Heparin 1000 units/ml (10 Ml vial) 1,000 U in Sodium Chloride 0.9% 500 ML 500 ML IV ONE (14:23)
--- NOTE | 2018-08-21 14:38 | XRAY ---
Indication: Ultrasound guidance for PICC line placement. Initial sonographic imaging of the right upper extremity was performed for localization of patent veins. A patent basilic vein identified above the elbow. Ultrasound guidance was then used for PICC line insertion. Full PICC line insertion is reported separately.
--- NOTE | 2018-08-21 14:40 | XRAY ---
Indication: Long-term IV access and therapy for lung infection. Informed consent obtained. Patient was placed on the fluoroscopic table in a supine position. Initial sonographic imaging of the right upper extremity was performed for localization of patent veins. The right upper extremity was then prepped and draped in sterile fashion. Tourniquet applied. 1% lidocaine plain used for local anesthesia. Using ultrasound guidance and a micropuncture needle, a basilic vein above the elbow was successfully percutaneously cannulized. A floppy tip 0.018 guidewire inserted. Tourniquet released. Needle was exchanged for a 5 Gambian dilator peel-away sheath catheter. Ultimately a 5 [place]ian double-lumen PICC line was inserted over a longer 0.018 guidewire with the tip positioned in the distal SVC using fluoroscopic guidance. Guidewire removed. Both ports flushed with heparinized saline. Catheter was secured. Postoperative instructions and orders given. Patient discharged in good condition. Impression: Technically successful right upper extremity PICC line placement using ultrasound and fluoroscopic guidance. No immediate complications. Approximately 1 cc blood loss. Approximately 0.2 minute of fluoroscopy used. Catheter length is 40 cm.
[2018-08-21 16:36] VITALS: BP 110/58; O2SAT 96
== END 2018-08-21 17:22 | DRG 197 ==
LOC: MED SURG 11:21
PROVIDERS: ADMIT Internal Medicine; ATTEND Internal Medicine
DX: J84.89 Other specified interstitial pulmonary diseases (principal); E87.1 Hypo-osmolality and hyponatremia; E46 Unspecified protein-calorie malnutrition; R91.8 Other nonspecific abnormal finding of lung field; E87.6 Hypokalemia; E83.42 Hypomagnesemia; D50.9 Iron deficiency anemia, unspecified; J44.9 Chronic obstructive pulmonary disease, unspecified; I10 Essential (primary) hypertension; R09.02 Hypoxemia; F10.10 Alcohol abuse, uncomplicated; R26.9 Unspecified abnormalities of gait and mobility; R79.1 Abnormal coagulation profile; R19.7 Diarrhea, unspecified; F17.200 Nicotine dependence, unspecified, uncomplicated
CPT/HCPCS: 32405; 36415; 36430; 36569; 36600; 71045; 71046; 76942; 77001; 78582; 80048; 80053; 82272; 82375; 82607; 82728; 82746; 82803; 83540; 83550; 83605; 83735; 83880; 83935; 84132; 84300; 85014; 85018; 85025; 85027; 85379; 85610; 85730; 86850; 86900; 86901; 86922; 87040; 87493; 93005; 93306; 94150; 94640; 94760; 94762; A9540; A9567; C1769; J1642; J1644; J1956; J3475; J3480; P9016; A9270-GY

== ENCOUNTER 2020-04-19 23:53 | Inpatient (IN) | payer OTHER ==
--- NOTE | 2020-04-19 23:59 | ERPHSYRPT ---
- History of Present Illness Time Seen by Provider: 04/19/20 23:59 Source: patient, EMS Exam Limitations: no limitations Physician History: This is a cachectic white 59-year-old female who continues to smoke 1 pack of cigarettes a day and presents to the emergency department via EMS because of low oxygen saturation levels. EMS provided the patient with 125 mg of intravenous Solu-Medrol and an albuterol nebulizer treatment. The patient denies shortness of breath. She has a history of asthma, COPD and CHF as well as hypertension. Patient's boyfriend noticed that her room air oxygenation was in the high 87-88 %. She does not wear oxygen at home. Patient states that she did not want to come into the hospital because she does not feel any shortness of breath. Patient does have a primary care physician, Dr. Albright. In addition, she sees a lung specialist, . Patient denies fever she denies chills. She denies chest pain and she denies abdominal pain. Timing/Duration: today Severity of Dyspnea-Max: none Severity of Dyspnea-Current: none Possible Cause: chronic episodes Modifying Factors: Improves With: nothing Associated Symptoms: No cough, No chest pain/discomfort, No weakness Allergies/Adverse Reactions: shellfish derived Allergy (Severe, Verified 04/20/20 00:11) diphtheria,pertussis (acellular),te [From Adacel(Tdap Adolesn/Adult)(PF)] Allergy (Unknown, Verified 04/20/20 00:11) Penicillins Allergy (Verified 04/20/20 00:11) Swelling strawberry Allergy (Verified 04/20/20 00:11) Home Medications: Albuterol Sulfate [Albuterol Sulfate Hfa] 90 mcg IH Q4H PRN PRN 08/12/18 [History] Budesonide/Formoterol Fumarate [Symbicort 160-4.5 Mcg Inhaler] 2 puff IH BID 08/12/18 [History] Cetirizine HCl [All Day Allergy] 10 mg PO DAILY 08/12/18 [History] EPINEPHrine [Epipen 0.3 MG] 0.3 mg IJ UD 08/12/18 [History] Ipratropium/Albuterol Sulfate [Iprat-Albut 0.5-3(2.5) mg/3 ml] 2.5 ml IH DAILY 08/12/18 [History] Lisinopril 20 mg [Zestril 20 MG] 20 mg PO DAILY 08/12/18 [History] Tiotropium [place] [Spiriva] 18 mcg IH DAILY 08/12/18 [History] carvediloL [Carvedilol] 3.125 mg PO BID 08/12/18 [History] Hx Tetanus, Diphtheria Vaccination/Date Given: No Hx Influenza Vaccination/Date Given: No Hx Pneumococcal Vaccination/Date Given: No Travel Risk - International Travel Have you traveled outside of the country in past 3 weeks: No - Coronavirus Screening Are you exhibiting any of the following symptoms?: No Close contact with a COVID-19 positive Pt in past 14-21 Days: No - Review of Systems Constitutional: No Symptoms Eyes: No Symptoms Ears, Nose, & Throat: No Symptoms Respiratory: No Symptoms Cardiac: No Symptoms Abdominal/Gastrointestinal: No Symptoms Genitourinary Symptoms: No Symptoms Musculoskeletal: No Symptoms Skin: No Symptoms Neurological: No Symptoms Psychological: No Symptoms Endocrine: No Symptoms Hematologic/Lymphatic: No Symptoms Immunological/Allergic: No Symptoms All Other Systems: Reviewed and Negative - Past Medical History Pertinent Past Medical History: Yes Neurological History: No Pertinent History ENT History: No Pertinent History Cardiac History: Hypertension Respiratory History: Asthma, COPD Endocrine Medical History: No Pertinent History Musculoskeletal History: No Pertinent History GI Medical History: No Pertinent History History: No Pertinent History Psycho-Social History: No Pertinent History Female Reproductive Disorders: No Pertinent History - Past Surgical History Past Surgical History: Yes Neuro Surgical History: No Pertinent History Cardiac: No Pertinent History Respiratory: No Pertinent History Gastrointestinal: No Pertinent History Genitourinary: No Pertinent History Musculoskeletal: No Pertinent History Female Surgical History: No Pertinent History - Social History Smoking Status: Current every day smoker How long have you smoked: 20 YEARS Exposure to second hand smoke: Yes Drug Use: none Patient Lives Alone: No - Nursing Vital Signs Nursing Vital Signs: Initial Vital Signs Temperature 97.1 F 04/19/20 23:54 Pulse Rate 87 04/19/20 23:54 Respiratory Rate 18 04/19/20 23:54 Blood Pressure 117/85 04/19/20 23:54 O2 Sat by Pulse Oximetry 96 04/19/20 23:54 Pain Scale Pain Intensity 0 - Physical Exam General Appearance: no apparent distress, alert Eye Exam: PERRL/EOMI, eyes nml inspection Ears, Nose, Throat Exam: hearing grossly normal Neck Exam: normal inspection, non-tender, supple, full range of motion Respiratory Exam: normal breath sounds, lungs clear, airway intact, No chest tenderness, No respiratory distress Cardiovascular/Chest Exam: normal heart sounds, regular rate/rhythm, normal peripheral pulses Abdominal/Gastrointestinal Exam: soft, normal bowel sounds, No tenderness Rectal Exam: not done Extremity Exam: non-tender, normal range of motion, normal inspection Neurologic Exam: alert, oriented x 3, cooperative, statistical technician II-XII nml as tested, sensation nml Skin Exam: normal color, warm, dry Lymphatic Exam: No adenopathy SpO2 Interpretation: normal SpO2: 96 O2 Delivery: Room Air - Course Nursing assessment & vital signs reviewed: Yes EKG Interpreted by Me: RATE, Sinus Rhythm, prolonged QT interval, Other ( Prolonged FL interval. This is a new finding when compared to EKG dated 08/12/2018. The nonspecific ST changes on that EKG have now resolved when compared to today's EKG. There are no acute ischemic changes present on either EKG.) Ordered Tests: Active Orders 24 hr Category Date Time Status Bedrest TOLERATED Activity 04/20/20 06:01 Active Admit as Inpatient ROUTINE Care 04/20/20 06:01 Active Medical Concierge STAT Care 04/20/20 00:09 Completed Code Status Order ROUTINE Care 04/20/20 06:01 Active EKG-ER Only STAT Care 04/20/20 00:08 Completed IV Insertion STAT Care 04/20/20 00:08 Completed Pulse Oximetry (ED) STAT Care 04/20/20 00:08 Completed Telemetry PROTOCOL Care 04/20/20 06:01 Active Weight,Daily 0600 Care 04/20/20 06:01 Active Clear Liquid Diet 04/20/20 Breakfast Active CHEST 1 VIEW (PORTABLE) Stat Exams 04/20/20 00:09 Taken CHEST WITH CONTRAST [CT] Stat Exams 04/20/20 02:42 Taken ARTERIAL BLOOD GASES Stat Lab 04/20/20 00:22 Completed CBC W DIFF AM.LAB Lab 04/21/20 04:00 Ordered CBC W DIFF Stat Lab 04/20/20 00:50 Completed CMP AM.LAB Lab 04/21/20 04:00 Ordered CMP Stat Lab 04/20/20 00:50 Completed D-DIMER QUANTITATIVE Stat Lab 04/20/20 00:50 Completed Lactic Acid Stat Lab 04/20/20 00:22 Completed MAGNESIUM Stat Lab 04/20/20 00:50 Completed NT PRO BNP Stat Lab 04/20/20 00:50 Completed TROPONIN Q3H Lab 04/20/20 00:50 Completed TROPONIN Q3H Lab 04/20/20 04:20 Completed TROPONIN Q3H Lab 04/20/20 06:15 Ordered TROPONIN Q3H Lab 04/20/20 09:15 Ordered TROPONIN Q3H Lab 04/20/20 12:15 Ordered Oxygen Nasal Cannula 2 lpm RT 04/20/20 06:01 Active Respiratory Therapy Consult ROUTINE RT 04/20/20 06:01 Active Transfer Order Routine Transfer 04/20/20 Completed Medication Summary Generic Name Dose Route Start Last Admin Trade Name Freq PRN Reason Stop Dose Admin Acetaminophen 650 mg 04/20/20 06:01 Tylenol 325 Mg PO 05/20/20 06:00 Q4H PRN PRN PAIN, FEVER, HEADACHE Potassium Chloride/Dextrose/Sod Cl 1,000 mls @ 100 mls/hr 04/20/20 06:01 Dextrose 5% -Nacl 0.9% 1000 Ml + Kcl 20 Meq IV 05/20/20 06:00 .Q10H MARY Ondansetron HCl 4 mg 04/20/20 06:01 Zofran 4 Mg/2 Ml Vial IV 05/20/20 06:00 Q6H PRN PRN NAUSEA/VOMITING Discontinued Medications Generic Name Dose Route Start Last Admin Trade Name Freq PRN Reason Stop Dose Admin Diphenhydramine HCl 25 mg 04/20/20 01:30 04/20/20 01:49 Benadryl 50 Mg/Ml IV 04/20/20 01:31 25 mg STAT ONE Administration Diphenhydramine HCl Confirm 04/20/20 01:46 Benadryl 50 Mg/Ml Administered 04/20/20 01:47 Dose 50 mg .ROUTE .STK-MED ONE Potassium Chloride 20 meq in 100 mls @ 50 mls/hr 04/20/20 00:33 04/20/20 00:46 Potassium Chloride 20 Meq In Water 100ml IV 04/20/20 02:32 50 mls/hr STAT ONE Administration Potassium Chloride Confirm 04/20/20 00:44 Potassium Chloride 20 Meq In Water 100ml Administered 04/20/20 00:45 Dose 100 mls @ ud IV .STK-MED ONE Sodium Chloride 500 mls @ 500 mls/hr 04/20/20 01:33 04/20/20 03:04 Sodium Chloride 0.9% 500 Ml IV 04/20/20 02:32 Infused .Q1H ONE Infusion Methylprednisolone Sodium Succinate 40 mg 04/20/20 01:30 04/20/20 01:52 Solu-Medrol 40 Mg IV 04/20/20 01:31 40 mg STAT ONE Administration Potassium Chloride 20 meq 04/20/20 00:33 04/20/20 00:47 Klor Con 10 Meq PO 04/20/20 00:34 20 meq STAT ONE Administration Potassium Chloride Confirm 04/20/20 00:44 Klor Con 10 Meq Administered 04/20/20 00:45 Dose 20 meq PO .STK-MED ONE Lab/Rad Data: Laboratory Result Diagrams 04/20/20 00:50 04/20/20 00:50 Laboratory Results 04/20/20 04/20/20 04/20/20 Range/Units 04:50 04:20 00:50 WBC (4.0-10.5) K/mm3 RBC (4.1-5.4) M/mm3 Hgb (12.0-16.0) gm/dl Hct (35-47) % MCV (78-100) fl MCH (26-32) pg MCHC (32-36) g/dl RDW (11.5-14.0) % Plt Count (150-450) K/mm3 MPV (7.5-11.0) fl Gran % (36.0-66.0) % Eos # (Auto) (0-0.5) Absolute Lymphs (auto) (1.0-4.6) Absolute Monos (auto) (0.0-1.3) Lymphocytes % (24.0-44.0) % Monocytes % (0.0-12.0) % Eosinophils % (0.00-5.0) % Basophils % (0.0-0.4) % Absolute Granulocytes (1.4-6.9) Basophils # (0-0.4) D-Dimer (215-500) ng/mL Puncture Site pCO2 (35-45) mmHg pO2 (75-100) mmHg Base Excess (-2.0-2.0) O2 Saturation (94-100) g/dF ABG pH (7.35-7.45) ABG HCO3 (22-28) ABG O2 Sat (Measured) (95-100) % Leonard Test A-a Gradient a/A Ratio Hemoglobin Carboxyhemoglobin (0.0-6.9) % THgb Methemoglobin (1.4-1.5) % Potassium (3.5-5.1) POC O2 Flow Rate % Sodium (137-145) mmol/L Chloride (98-107) mmol/L Carbon Dioxide (23-27) mEq/L Anion Gap (5-15) MEQ/L BUN (7-17) mg/dL Creatinine (0.52-1.04) mg/dL Estimated GFR ML/MIN Glucose (74-106) mg/dL Lactic Acid (0.4-2.0) Calcium (8.4-10.2) mg/dL Magnesium (1.6-2.3) mg/dL Total Bilirubin (0.2-1.3) mg/dL AST (14-36) U/L ALT (0-35) U/L Alkaline Phosphatase (38-126) U/L Troponin I < 0.012 < 0.012 (0.000-0.034) ng/mL NT-Pro-B Natriuret Pep (0-900) pg/mL Serum Total Protein (6.3-8.2) g/dL Albumin (3.5-5.0) g/dL Influenza Type A Ag NEGATIVE (NEGATIVE) Influenza Type B Ag NEGATIVE (NEGATIVE) RSV (PCR) NEGATIVE (Negative) SARS-CoV-2 (PCR) NEGATIVE (NEGATIVE) Slides for Path Review 04/20/20 04/20/20 04/20/20 Range/Units 00:50 00:50 00:50 WBC 4.7 (4.0-10.5) K/mm3 RBC 3.64 L (4.1-5.4) M/mm3 Hgb 12.6 (12.0-16.0) gm/dl Hct 35.8 (35-47) % MCV 98.4 (78-100) fl MCH 34.6 H (26-32) pg MCHC 35.2 (32-36) g/dl RDW 14.1 H (11.5-14.0) % Plt Count 236 (150-450) K/mm3 MPV 9.2 (7.5-11.0) fl Gran % 83.7 H (36.0-66.0) % Eos # (Auto) 0.08 (0-0.5) Absolute Lymphs (auto) 0.41 L (1.0-4.6) Absolute Monos (auto) 0.26 (0.0-1.3) Lymphocytes % 8.7 L (24.0-44.0) % Monocytes % 5.5 (0.0-12.0) % Eosinophils % 1.7 (0.00-5.0) % Basophils % 0.4 (0.0-0.4) % Absolute Granulocytes 3.92 (1.4-6.9) Basophils # 0.02 (0-0.4) D-Dimer 1094 H* (215-500) ng/mL Puncture Site pCO2 (35-45) mmHg pO2 (75-100) mmHg Base Excess (-2.0-2.0) O2 Saturation (94-100) g/dF ABG pH (7.35-7.45) ABG HCO3 (22-28) ABG O2 Sat (Measured) (95-100) % Leonard Test A-a Gradient a/A Ratio Hemoglobin Carboxyhemoglobin (0.0-6.9) % THgb Methemoglobin (1.4-1.5) % Potassium 2.9 L* (3.5-5.1) POC O2 Flow Rate % Sodium 112 L* (137-145) mmol/L Chloride 79 L (98-107) mmol/L Carbon Dioxide 21 L (23-27) mEq/L Anion Gap 13.8 (5-15) MEQ/L BUN 14 (7-17) mg/dL Creatinine 0.58 (0.52-1.04) mg/dL Estimated GFR > 60.0 ML/MIN Glucose 80 (74-106) mg/dL Lactic Acid (0.4-2.0) Calcium 8.6 (8.4-10.2) mg/dL Magnesium 1.2 L (1.6-2.3) mg/dL Total Bilirubin 0.50 (0.2-1.3) mg/dL AST 36 (14-36) U/L ALT 12 (0-35) U/L Alkaline Phosphatase 155 H (38-126) U/L Troponin I (0.000-0.034) ng/mL NT-Pro-B Natriuret Pep 870 (0-900) pg/mL Serum Total Protein 6.5 (6.3-8.2) g/dL Albumin 3.3 L (3.5-5.0) g/dL Influenza Type A Ag (NEGATIVE) Influenza Type B Ag (NEGATIVE) RSV (PCR) (Negative) SARS-CoV-2 (PCR) (NEGATIVE) Slides for Path Review YES 04/20/20 04/20/20 Range/Units 00:22 00:22 WBC (4.0-10.5) K/mm3 RBC (4.1-5.4) M/mm3 Hgb (12.0-16.0) gm/dl Hct (35-47) % MCV (78-100) fl MCH (26-32) pg MCHC (32-36) g/dl RDW (11.5-14.0) % Plt Count (150-450) K/mm3 MPV (7.5-11.0) fl Gran % (36.0-66.0) % Eos # (Auto) (0-0.5) Absolute Lymphs (auto) (1.0-4.6) Absolute Monos (auto) (0.0-1.3) Lymphocytes % (24.0-44.0) % Monocytes % (0.0-12.0) % Eosinophils % (0.00-5.0) % Basophils % (0.0-0.4) % Absolute Granulocytes (1.4-6.9) Basophils # (0-0.4) D-Dimer (215-500) ng/mL Puncture Site RIGHT BRACHIAL pCO2 32 L (35-45) mmHg pO2 65 L (75-100) mmHg Base Excess -1.0 (-2.0-2.0) O2 Saturation 91.8 L (94-100) g/dF ABG pH 7.45 (7.35-7.45) ABG HCO3 22.2 (22-28) ABG O2 Sat (Measured) 93.7 L (95-100) % Leonard Test NOT APPLICABLE A-a Gradient 45 a/A Ratio 0.59 Hemoglobin 12.6 Carboxyhemoglobin 1.2 (0.0-6.9) % THgb Methemoglobin 0.8 L (1.4-1.5) % Potassium 2.6 L* (3.5-5.1) POC O2 Flow Rate 21 % Sodium (137-145) mmol/L Chloride (98-107) mmol/L Carbon Dioxide 23 (23-27) mEq/L Anion Gap (5-15) MEQ/L BUN (7-17) mg/dL Creatinine (0.52-1.04) mg/dL Estimated GFR ML/MIN Glucose (74-106) mg/dL Lactic Acid 0.5 (0.4-2.0) Calcium (8.4-10.2) mg/dL Magnesium (1.6-2.3) mg/dL Total Bilirubin (0.2-1.3) mg/dL AST (14-36) U/L ALT (0-35) U/L Alkaline Phosphatase (38-126) U/L Troponin I (0.000-0.034) ng/mL NT-Pro-B Natriuret Pep (0-900) pg/mL Serum Total Protein (6.3-8.2) g/dL Albumin (3.5-5.0) g/dL Influenza Type A Ag (NEGATIVE) Influenza Type B Ag (NEGATIVE) RSV (PCR) (Negative) SARS-CoV-2 (PCR) (NEGATIVE) Slides for Path Review - Progress Progress: improved Air Movement: good Progress Note: 04/20/20 01:32 Chest x-ray shows no acute cardiopulmonary issues. There are chronic changes noted. 04/20/20 05:49 CTA of the chest shows no evidence of any pulmonary emboli. Medical decision making: I discussed this patient with Dr. Albright including her history, condition, EKG results, chest x-ray results, laboratory work-up results and the results of the CTA of the chest. Patient will be admitted and give sodium and potassium replacement as well as respiratory therapy treatment for her hypoxia. 04/20/20 06:13 The CTA of the chest shows right mainstem bronchus and left lower lobe bronchus mucous plugging with possible postobstructive infection. 04/20/20 06:23 Blood Culture(s) Obtained: No Antibiotics given: No Discussed with : Riddhi Counseled pt/family regarding: lab results, diagnosis, need for follow-up, rad results - Departure Departure Disposition: In-patient Admission Clinical Impression: Hypoxia, Hyponatremia, Mucus plugging of bronchi, Postobstructive pneumonia Condition: Fair Critical Care Time: Yes Critical Care Time(excluding separately billable procedures): Critical 30-74 mins
[2020-04-20] MEDS ORDERED: POTASSIUM CHLORIDE 20 mEq IN WATER 100ML 20 MEQ/100 ML BAG IV ONE (00:33)
[2020-04-20] MEDS ORDERED: Klor Con 10 MEQ PO ONE ×3 (00:33→19:00)
[2020-04-20 00:39] LABS: A-aADO2 45; ARTERIAL BLD GAS O2 SATURATION 93.7 % (95-100); ARTERIAL BLOOD GAS PCO2 32 mmHg (35-45); ARTERIAL BLOOD GAS PO2 65 mmHg (75-100); ARTERIAL BLOOD GAS pH 7.45 (7.35-7.45); CARBON DIOXIDE 23 mEq/L (23-27); HCO3- 22.2 (22-28)
[2020-04-20 00:40] LABS: ABG HEMOGLOBIN 12.6; ABG POTASSIUM 2.6 (3.5-5.1); ARTERIAL BLOOD GAS FIO2 21 %; HGB O2 SAT 91.8 g/dF (94-100); Methhemoglobin 0.8 % (1.4-1.5)
[2020-04-20 00:41] LABS: ABG SITE RIGHT BRACHIAL; CARBOXYHEMOGLOBIN 1.2 % THgb (0.0-6.9)
[2020-04-20] MEDS ORDERED: POTASSIUM CHLORIDE 20 mEq IN WATER 100ML 100 ML IV ONE (00:44)
[2020-04-20 01:01] LABS: Absolute Neutrophil Ct (ANC) 3.92 (1.4-6.9); BASOPHIL % 0.4 % (0.0-0.4); Basophil (Absolute #) 0.02 (0-0.4); Eosinophil % 1.7 % (0.00-5.0); Eosinophil (Absolute #) 0.08 (0-0.5); Hematocrit 35.8 % (35-47); Hemoglobin 12.6 gm/dl (12.0-16.0); Lymphocyte (Absolute #) 0.41 (1.0-4.6); Lymphocytes % 8.7 % (24.0-44.0); Mean Cell Volume 98.4 fl (78-100); Mean Corpuscular Hemoglobin 34.6 pg (26-32); Mean Corpuscular Hgb Concent. 35.2 g/dl (32-36); Mean Platelet Volume 9.2 fl (7.5-11.0); Monocyte (Absolute #) 0.26 (0.0-1.3); Monocytes % 5.5 % (0.0-12.0); Neutrophil % 83.7 % (36.0-66.0); Platelet Count 236 K/mm3 (150-450); Red Blood Count 3.64 M/mm3 (4.1-5.4); Red Cell Distribution Width 14.1 % (11.5-14.0); White Blood Count 4.7 K/mm3 (4.0-10.5)
[2020-04-20 01:16] LABS: ALBUMIN 3.3 g/dL (3.5-5.0); ALKALINE PHOSPHATASE 155 U/L (38-126); ANION GAP 13.8 MEQ/L (5-15); BLOOD UREA NITROGEN 14 mg/dL (7-17); CHLORIDE 79 mmol/L (98-107); Calcium 8.6 mg/dL (8.4-10.2); Carbon Dioxide 21 mmol/L (22-30); Creatinine 1 0.58 mg/dL (0.52-1.04); EST GLOMERULAR FILTRATION RATE > 60.0 ML/MIN; Glucose 80 mg/dL (74-106); MAGNESIUM 1.2 mg/dL (1.6-2.3); NT PRO BNP 870 pg/mL (0-900); SGOT/AST 36 U/L (14-36); SGPT/ALT 12 U/L (0-35); Total Protein 6.5 g/dL (6.3-8.2)
[2020-04-20 01:28] LABS: Potassium 2.9 mmol/L (3.5-5.1); SODIUM 112 mmol/L (137-145)
[2020-04-20] MEDS ORDERED: BENADRYL 50 MG/ML IV ONE (01:30)
[2020-04-20] MEDS ORDERED: solu-MEDROL 40 MG IV ONE (01:30)
[2020-04-20] MEDS ORDERED: Sodium Chloride 0.9% 500 ML 500 ML IV ONE (01:33)
[2020-04-20] MEDS ORDERED: BENADRYL 50 MG/ML ONE (01:46)
[2020-04-20 03:42] LABS: Slide Review 1 YES
[2020-04-20 05:34] LABS: INFLUENZA A NEGATIVE (NEGATIVE); INFLUENZA B NEGATIVE (NEGATIVE); RESPIRATORY SYNCTIAL VIRUS NEGATIVE (Negative)
[2020-04-20] MEDS ORDERED: TYLENOL 325 MG PO PRN (06:01)
[2020-04-20] MEDS ORDERED: Zofran 4 MG/2 ML VIAL IV PRN (06:01)
[2020-04-20] MEDS: Zithromax 500 MG/ 250 ML NaCl Premix 500 MG/250 ML IVPB IV SCH (06:44)
[2020-04-20] MEDS ORDERED: VENTOLIN COMMON CANISTER IH PRN (07:00)
[2020-04-20 07:16] LABS: TROPONIN < 0.012 ng/mL (0.000-0.034)
[2020-04-20 07:20] LABS: ALBUMIN 3.2 g/dL (3.5-5.0); ALKALINE PHOSPHATASE 148 U/L (38-126); BLOOD UREA NITROGEN 11 mg/dL (7-17); CHLORIDE 85 mmol/L (98-107); Calcium 8.9 mg/dL (8.4-10.2); Carbon Dioxide 17 mmol/L (22-30); Creatinine 1 0.42 mg/dL (0.52-1.04); EST GLOMERULAR FILTRATION RATE > 60.0 ML/MIN; Glucose 86 mg/dL (74-106); Potassium 3.8 mmol/L (3.5-5.1); SGOT/AST 37 U/L (14-36); SGPT/ALT 12 U/L (0-35); Total Protein 6.3 g/dL (6.3-8.2)
[2020-04-20 07:27] LABS: ANION GAP 7.8 MEQ/L (5-15); SODIUM 116 mmol/L (137-145)
[2020-04-20] MEDS: DEXTROSE 5% -NACL 0.9% 1000 ML + KCl 20 MEQ 1,000 ML IV SCH ×2 (08:21→19:00)
--- NOTE | 2020-04-20 08:50 | XRAY ---
Indication: Short of breath. Elevated d-dimer. Multiple contiguous axial images obtained through the chest using 100 cc Isovue 370 contrast and. Protocol. Comparison: December 17, 2018. There is good opacification of the pulmonary arteries to include the lobar and segmental branches. No pulmonary embolus. Heart is not enlarged. Aorta is normal in course and caliber again with minimal scattered calcifications. Stable tiny mediastinal and right hilar calcified nodes. No pathologic mediastinal/hilar lymphadenopathy. Stable subcentimeter left thyroid hypodense nodule/cyst and small hiatal hernia. Lungs again hyperinflated with now mucous plugging of the posterior segment of the right lower lobe with stable distal round atelectasis/consolidation. Also new mucous plugging of the posterior and lateral segmental branch of the left lower lobe with minimal distal subsegmental atelectasis. Stable right posterior gutter calcified granuloma. No infiltrate or effusion. Bony thorax intact again with osteopenia, degenerative changes throughout the spine, and old left rib fractures. New L1-L4 compression fractures of uncertain chronicity, greatest extent L1 with at least 75% height loss. Limited upper abdomen again demonstrates mild fatty liver. Impression: 1. Negative pulmonary embolus. 2. New bilateral lower lobe segmental mucous plugging with stable peripheral right lower lobe atelectasis/consolidation and new peripheral left lower lobe atelectasis. 3. Again chronic bony findings with new L1-L4 compression fractures of uncertain chronicity. 4. Stable subcentimeter left thyroid nodule/cyst, small hiatal hernia, fatty liver, and old granulomatous disease. Comment: Preliminary interpretation was made by [facility]. No critical discrepancy.
--- NOTE | 2020-04-20 08:52 | XRAY ---
Indication: Hypoxia. Comparison: August 15, 2018. Portable chest hyperinflated with interval right base clearing and mild residual atelectasis/scarring. Remaining lungs clear. Heart and mediastinal structures within normal limits. Bony thorax intact again with mild osteopenia and degenerative changes. Impression: Right base improvement with mild residual atelectasis/scarring. Negative for acute pneumonic process or CHF.
[2020-04-20] MEDS ORDERED: Mucomyst 200 MG/ML IH PRN (09:10)
[2020-04-20] MEDS: DUONEB 0.5-3 MG/3 ml Neb IH PRN (09:30)
[2020-04-20] MEDS: Advair Hfa 230/21 Mcg COMMON CANISTER IH SCH ×2 (09:40→19:43)
[2020-04-20] MEDS: Mucinex 600MG ER Tabs PO SCH ×2 (09:43→22:16)
[2020-04-20] MEDS: ROCEPHIN 1 Gm-D5w 50 ml Bag** 1 G/50 ML IVPB IV SCH (09:43)
[2020-04-20] MEDS: ENOXAPARIN SODIUM SQ SCH (09:43)
[2020-04-20] MEDS ORDERED: EPINEPHRINE ABBOJECT 1 MG IJ SCH (09:45)
[2020-04-20] MEDS ORDERED: EPINEPHRINE 0.3 MG IJ SCH (09:45)
[2020-04-20] MEDS ORDERED: NON-FORMULARY ITEM (Cetirizine Hcl [All Day Allergy] 10 MG) PO SCH (10:00)
[2020-04-20] MEDS ORDERED: Coreg 6.25 MG PO SCH (10:00)
--- NOTE | 2020-04-20 10:09 | HP ---
CHIEF COMPLAINT: Increasing shortness of breath. HISTORY OF PRESENT ILLNESS: The patient is a 59 year-old white female who resides at home with her boyfriend who reported that she did not appear to acting quite right. They brought her into the emergency room where she was found to have O2 saturations in the 87 to 88% range. The patient does not have home oxygen. She does have a history of chronic obstructive pulmonary disease. The patient was also noted to be profoundly hyponatremic. She also has a history of hyponatremia and in fact has seen Dr. Somers in the past for treatments including special medications like Samsca to keep her sodium up. When I reviewed the chart record I find the highest sodium I have ever seen in her was 133 and often times she is in the high 120's. The patient otherwise reports that she has not been particularly ill. She is alert and oriented x3 presently and her story seems to be reasonable from her history. The patient otherwise is known to be as smoker and also drinks alcohol on a daily basis although she reports not more than a six-pack in a day. PAST MEDICAL/SURGICAL HISTORY: HOME MEDICATIONS: Currently Albuterol on PRN basis, Symbicort 2 puffs b.i.d., Cetirizine daily. She has an EpiPen at home for use should she need it. She has ipratropium, Albuterol DuoNeb, lisinopril 20 mg a day, Spiriva 18 mg inhaled daily, carvedilol 3.125 mg b.i.d. ALLERGIES: DPT VACCINATION. PENICILLIN. SHELLFISH. PHYSICAL EXAMINATION: Revealed a well-nourished, well-developed somewhat thin, white female in no obvious distress. Again, she was alert and oriented x3, lying in bed with supplemental oxygen, not particularly appearing short of breath and speaking in full sentences. VITAL SIGNS: The patient's vital signs on admission showed temperature to be 97.1F, pulse 87, respiratory rate 18 and blood pressure 117/85. O2 saturation 96%. HEENT: Oropharynx appears to be slightly dry. NECK: Supple without lymphadenopathy, thyromegaly or JVD. CHEST: Clear to auscultation. HEART: Regular rate and rhythm. ABDOMEN: Soft. No palpable masses. EXTREMITIES: Without cyanosis, clubbing or edema. NEUROLOGIC: The patient again is alert and oriented x3 with no focal deficits. LAB DATA AND TESTS: The patient's laboratory studies had revealed elevated D-dimer. CT scan of the chest revealed mucous plugging in both bronchus. The patient otherwise had a white count of 4,700, hemoglobin 12.6, PLT count 236,000. Troponin less than 0.012. She was negative for COVID, influenza A/B and RSV. Lactic acid was 0.5. ABG showed a pH of 7.45, pCO2 of 32 and pO2 of 65 on room air. Her D-dimer was 1,094. It was noted that the patient's sugar was 80, BUN 14, creatinine 0.58, sodium 112, potassium 2.9, chloride 79, bicarb 21. Liver enzymes were not increased. ProBNP was normal. ASSESSMENT: 1) A patient with chronic obstructive pulmonary disease and mucous plugging. We will consult her pulmonary physician as she may require a bronchoscopy. She will be given supplemental oxygen which she does not usually at home. We are giving her guaifenesin to try to help to improve the moisture in the lungs to help the mucous plugging. 2) A patient with profound hyponatremia although the patient neurologically is functionally apparently normal with a sodium of 112. It has increased to 116 with the treatment thus far. The patient also sees a fitness center attendant, Dr. Somers, who will be consulted again due to the patient's hyponatremia. She has been placed on D5 and normal saline plus 20 of potassium in her IV fluids at 100 cc/hour. She has been instructed to fluid restrict to 1,000 cc orally free fluid today and she was given a regular diet and liberal salt intake p.o.
[2020-04-20] MEDS: CLARITIN 10 MG PO SCH (11:00)
[2020-04-20] MEDS: Coreg 3.125 MG PO SCH ×2 (11:00→22:16)
[2020-04-20 17:50] LABS: ALBUMIN 2.8 g/dL (3.5-5.0); BLOOD UREA NITROGEN 13 mg/dL (7-17); Calcium 8.5 mg/dL (8.4-10.2); Glucose 272 mg/dL (74-106); SGOT/AST 28 U/L (14-36); SGPT/ALT 13 U/L (0-35)
[2020-04-20 17:55] LABS: MAGNESIUM 1.3 mg/dL (1.6-2.3)
[2020-04-20] MEDS: Spiriva 18 Mcg/Cap Inhaler IH SCH ×2 (17:56→19:47)
[2020-04-20 18:08] LABS: ALKALINE PHOSPHATASE 125 U/L (38-126); ANION GAP 11.9 MEQ/L (5-15); CHLORIDE 90 mmol/L (98-107); Carbon Dioxide 19 mmol/L (22-30); Creatinine 1 0.38 mg/dL (0.52-1.04); EST GLOMERULAR FILTRATION RATE > 60.0 ML/MIN; Potassium 3.4 mmol/L (3.5-5.1); Total Protein 5.7 g/dL (6.3-8.2)
[2020-04-20 18:12] LABS: SODIUM 117 mmol/L (137-145)
[2020-04-20] MEDS ORDERED: Spiriva 18 Mcg/Cap Inhaler IH ONE (19:30)
[2020-04-20] MEDS: Magnesium 1 Gm / 100 Ml D5W*** 100 ML IV SCH ×3 (19:45→23:00)
[2020-04-21] MEDS: Magnesium 1 Gm / 100 Ml D5W*** 100 ML IV SCH (01:58)
[2020-04-21 05:26] LABS: Absolute Neutrophil Ct (ANC) 10.39 (1.4-6.9); BASOPHIL % 0.1 % (0.0-0.4); Basophil (Absolute #) 0.01 (0-0.4); Eosinophil % 0.2 % (0.00-5.0); Eosinophil (Absolute #) 0.02 (0-0.5); Hematocrit 31.8 % (35-47); Hemoglobin 10.8 gm/dl (12.0-16.0); Mean Cell Volume 100.6 fl (78-100); Mean Corpuscular Hemoglobin 34.2 pg (26-32); Mean Platelet Volume 9.2 fl (7.5-11.0); Monocyte (Absolute #) 0.62 (0.0-1.3); Monocytes % 5.3 % (0.0-12.0); Neutrophil % 88.4 % (36.0-66.0); Platelet Count 245 K/mm3 (150-450); Red Blood Count 3.16 M/mm3 (4.1-5.4); Red Cell Distribution Width 14.2 % (11.5-14.0); White Blood Count 11.7 K/mm3 (4.0-10.5)
[2020-04-21 06:07] LABS: ALBUMIN 2.9 g/dL (3.5-5.0); ALKALINE PHOSPHATASE 124 U/L (38-126); BLOOD UREA NITROGEN 10 mg/dL (7-17); CHLORIDE 89 mmol/L (98-107); Calcium 8.4 mg/dL (8.4-10.2); Carbon Dioxide 19 mmol/L (22-30); Creatinine 1 0.29 mg/dL (0.52-1.04); EST GLOMERULAR FILTRATION RATE > 60.0 ML/MIN; Glucose 130 mg/dL (74-106); MAGNESIUM 2.7 mg/dL (1.6-2.3); SGOT/AST 28 U/L (14-36); SGPT/ALT 12 U/L (0-35); Total Protein 5.8 g/dL (6.3-8.2)
[2020-04-21 06:39] LABS: SODIUM 114 mmol/L (137-145)
[2020-04-21] MEDS: Advair Hfa 230/21 Mcg COMMON CANISTER IH SCH ×2 (06:56→19:53)
[2020-04-21] MEDS: DUONEB 0.5-3 MG/3 ml Neb IH PRN (06:56)
--- NOTE | 2020-04-21 08:38 | CONS ---
AMENDED REPORT: CONSULT DATE: 04/20/2020 REASON FOR CONSULT: Hyponatremia. HISTORY: The patient is a 59 year-old female with multiple medical problems who was seen by me in 2019 for hyponatremia and has been lost to follow up since then. She lives at home with her boyfriend. The boyfriend thought the patient was not acting right so he brought her to the emergency room where she was found to have O2 saturation 87 to 88%. She does not have home oxygen. She has chronic obstructive pulmonary disease. She is a smoker and does drink alcohol. She was noted to have low potassium, low sodium. She was admitted for further management. She was seen by me last in November of 2018 and since then has been lost to follow up. At that time I recommended Ure-NA because she was not able to afford Samsca but the patient has not been taking those. She drinks unknown of beer every day. She is not wanting to specify how much. She continued to smoke until she came to the hospital. Denies any active vomiting, diarrhea or any fever. REVIEW OF SYSTEMS: Generalized weakness, has several bruises over her body. She states she had a fall. Denies any headache. Complains of poor intake, poor appetite. No active vomiting, diarrhea or fever. Complains of shortness of breath. Complains of some generalized weakness. All other systems were reviewed negative except as listed above. PAST MEDICAL HISTORY: Hypertension, chronic obstructive pulmonary disease, hyponatremia. MEDICATIONS: Home medicines and medicine in the hospital reviewed per the medication reconciliation sheet. She does take [id number] NSAIDS. ALLERGIES: PENICILLIN. DPT. SHELLFISH. SOCIAL HISTORY: She continues to smoke until she came to the hospital and drinks beer every day appears to be more than six but recently trying to cut down. Denies any illicit substance abuse. She lives at home with her boyfriend. FAMILY HISTORY: Denies any history of sodium problems in the family. PHYSICAL EXAMINATION: The patient is thin, not in any distress. Vital signs reviewed at bedside. HEENT: Head - Trauma of the face and bruise cerna. Eyes - Nonicteric. No pallor. ENT: Mucosa moist. NECK: No JVD. CHEST: Bilateral rhonchi, occasional wheeze. No rales. No respiratory distress. CVS: Appears regular. No peripheral edema. ABDOMEN: Soft, nontender. Positive bowel sounds. No organomegaly. EXTREMITIES: No peripheral edema. NEURO: Awake, alert. Following commands appropriately. PSYCH: Appropriate mood and affect. SKIN: Warm and dry. She has some bruise cerna over the body. LAB DATA AND TESTS: Hemoglobin 12.6. Sodium 112, potassium 2.9, creatinine 0.58. ABG showed pH 7.45. Troponin less than 0.012. Her COVID test was negative. CT scan of chest showed mucous plugging of both bronchus. ASSESSMENT AND PLAN: A 59 year-old white female with medical problems: 1) Hyponatremia likely multifactorial secondary to beer potomania, dehydration, increased ADH (antidiuretic hormone) due to ongoing pulmonary issues with chronic obstructive pulmonary disease and possible pneumonia and possible mucous plugging. I agree with IV fluids, normal saline. I will await labs and adjust the fluids based on the sodium level. She may need Samsca depending upon her sodium level. I will check urine sodium osmolality, check TSH and serum cortisol level because of hyponatremia would seem less likely. I counseled her about avoiding NSAID's which may have contributed to her hyponatremia as well. I counseled her about avoiding alcohol which definitely seems to be contributing to her hyponatremia. 2) Hypokalemia secondary to poor intake and alcohol-related. Replace potassium and monitor potassium level closely. 3) Chronic obstructive pulmonary disease with possible mucous plugging and possible pneumonia may consult pulmonology. 4) Hypertension. Avoid hydrochlorothiazide, diuretics. Use alternative agents as needed. 5) Alcohol and tobacco abuse. I consulted the patient about quitting alcohol and quitting tobacco. Thank you for the consultation on this patient. Please do not hesitate to contact me for any questions.
[2020-04-21] MEDS: CLARITIN 10 MG PO SCH (09:41)
[2020-04-21] MEDS: Coreg 3.125 MG PO SCH (09:41)
[2020-04-21] MEDS: Mucinex 600MG ER Tabs PO SCH (09:41)
[2020-04-21] MEDS: ENOXAPARIN SODIUM SQ SCH (09:42)
[2020-04-21] MEDS: ROCEPHIN 1 Gm-D5w 50 ml Bag** 1 G/50 ML IVPB IV SCH (09:43)
[2020-04-21] MEDS: Zithromax 500 MG/ 250 ML NaCl Premix 500 MG/250 ML IVPB IV SCH (10:27)
--- NOTE | 2020-04-21 14:17 | CONS ---
CONSULT DATE: 04/21/2020 HISTORY: Miss Shipman is a 59 year-old woman with history of chronic obstructive pulmonary disease who has been brought in with complaints of shortness of breath. The patient was noted to have low oxygen saturation on admission. She also had a chest CT that showed evidence of mucous plugging along with infiltrates and atelectasis. The patient since then has been placed on therapy and does report improvement. She also has been noted to have electrolyte imbalance for which she has seen Dr. Somers and was treated with Samsca. At the time of my evaluation, she appears comfortable. She is a bit confused but answers simple questions appropriately. PAST MEDICAL HISTORY: Positive for history of chronic obstructive pulmonary disease, hypertension. PAST SURGICAL HISTORY: No recent surgery. PERSONAL AND SOCIAL HISTORY: Reviewed. MEDICATIONS: Home and current medications are reviewed. ALLERGIES: PENICILLIN. SHELLFISH. PHYSICAL EXAMINATION: This is an elderly woman who appears comfortable, able to speak. Vital signs noted. HEENT: Normocephalic. Oral exam limited. NECK: Supple. CVS: First and second heart sounds are normal, regular, rhythmic. RESPIRATORY: Shows diminished breath sounds, posterior crackles occasionally heard. . ABDOMEN: Soft. EXTREMITIES: No edema is noted. LABORATORY DATA AND TESTS: White count 11.7, hemoglobin 10.8, hematocrit 31.8, PLT 245,000. Sodium 114, potassium 4.0, chloride 89, bicarb 19, BUN 10, glucose 130, creatinine 0.3. Admission sodium was 105. The pH 7.45, pCO2 of 32, pO2 65. Chest x-ray and CT chest noted. ASSESSMENT: This is a 59 year old woman admitted with: 1) Chronic obstructive pulmonary disease with acute exacerbation. 2) Multilobar pneumonia with abnormal CT suggestive of mucous debris suggestive of likely mucous plugging. Clinically appears improved. 3) Severe hyponatremia per nephrology. Likely SIADH. RECOMMENDATIONS: 1) At this point the patient appears to have improved from pulmonary standpoint 2) I agree with present treatment. 3) Complete antibiotics. 4) Increase pulmonary toilet, will hold off on bronchoscopy for the time being. 5) Deep vein thrombosis and GI prophylaxis. 6) Renal follow up for correction of electrolytes which appears severe are priority. If the patient's chest x-ray shows continues to show improvement will consider bronchoscopy at a later point. Thank you for allowing me to participate in the care of Miss Shipman.
[2020-04-21] MEDS: TOLVAPTAN PO SCH (15:07)
[2020-04-21] MEDS: DEXTROSE 5% -NACL 0.9% 1000 ML + KCl 20 MEQ 1,000 ML IV SCH (15:39)
[2020-04-21] MEDS ORDERED: ULTRAM 50 MG PO PRN (17:31)
[2020-04-21] MEDS: Spiriva 18 Mcg/Cap Inhaler IH SCH (19:53)
[2020-04-21] MEDS ORDERED: Ativan 2 MG/1 ML VIAL IV ONE (20:47)
[2020-04-21] MEDS ORDERED: Ativan 2 MG/1 ML VIAL IV PRN (21:22)
[2020-04-22] MEDS: Mucinex 600MG ER Tabs PO SCH ×3 (00:47→21:37)
[2020-04-22] MEDS: Coreg 3.125 MG PO SCH ×3 (00:47→21:37)
[2020-04-22 05:27] LABS: ALKALINE PHOSPHATASE 137 U/L (38-126); ANION GAP 8.1 MEQ/L (5-15); BLOOD UREA NITROGEN 4 mg/dL (7-17); CHLORIDE 94 mmol/L (98-107); Carbon Dioxide 24 mmol/L (22-30); Creatinine 1 0.28 mg/dL (0.52-1.04); EST GLOMERULAR FILTRATION RATE > 60.0 ML/MIN; Glucose 93 mg/dL (74-106); SGOT/AST 29 U/L (14-36); SGPT/ALT 13 U/L (0-35); Total Protein 6.1 g/dL (6.3-8.2)
[2020-04-22 05:31] LABS: SODIUM 122 mmol/L (137-145)
[2020-04-22] MEDS: Advair Hfa 230/21 Mcg COMMON CANISTER IH SCH ×2 (07:06→20:42)
[2020-04-22] MEDS: ROCEPHIN 1 Gm-D5w 50 ml Bag** 1 G/50 ML IVPB IV SCH (10:06)
[2020-04-22] MEDS: CLARITIN 10 MG PO SCH (10:06)
[2020-04-22] MEDS: TOLVAPTAN PO SCH (10:06)
[2020-04-22] MEDS: ENOXAPARIN SODIUM SQ SCH (10:06)
[2020-04-22] MEDS: ULTRAM 50 MG PO PRN ×2 (10:21→21:37)
[2020-04-22] MEDS: Zithromax 500 MG/ 250 ML NaCl Premix 500 MG/250 ML IVPB IV SCH (11:01)
[2020-04-22] MEDS: Spiriva 18 Mcg/Cap Inhaler IH SCH (20:42)
[2020-04-23 05:37] LABS: Absolute Neutrophil Ct (ANC) 3.26 (1.4-6.9); BASOPHIL % 0.9 % (0.0-0.4); Basophil (Absolute #) 0.04 (0-0.4); Eosinophil (Absolute #) 0.09 (0-0.5); Hematocrit 32.5 % (35-47); Hemoglobin 10.8 gm/dl (12.0-16.0); Lymphocyte (Absolute #) 0.74 (1.0-4.6); Lymphocytes % 16.6 % (24.0-44.0); Mean Cell Volume 102.5 fl (78-100); Mean Corpuscular Hemoglobin 34.1 pg (26-32); Mean Corpuscular Hgb Concent. 33.2 g/dl (32-36); Mean Platelet Volume 9.2 fl (7.5-11.0); Monocyte (Absolute #) 0.33 (0.0-1.3); Monocytes % 7.4 % (0.0-12.0); Neutrophil % 73.1 % (36.0-66.0); Platelet Count 228 K/mm3 (150-450); Red Blood Count 3.17 M/mm3 (4.1-5.4); Red Cell Distribution Width 14.6 % (11.5-14.0); White Blood Count 4.5 K/mm3 (4.0-10.5)
[2020-04-23 06:09] LABS: ALBUMIN 2.8 g/dL (3.5-5.0); ALKALINE PHOSPHATASE 131 U/L (38-126); ANION GAP 7.3 MEQ/L (5-15); BLOOD UREA NITROGEN 4 mg/dL (7-17); CHLORIDE 93 mmol/L (98-107); Calcium 8.8 mg/dL (8.4-10.2); Carbon Dioxide 25 mmol/L (22-30); Creatinine 1 0.34 mg/dL (0.52-1.04); EST GLOMERULAR FILTRATION RATE > 60.0 ML/MIN; Glucose 77 mg/dL (74-106); Potassium 3.8 mmol/L (3.5-5.1); SGOT/AST 40 U/L (14-36); SGPT/ALT 17 U/L (0-35); SODIUM 121 mmol/L (137-145); Total Protein 5.7 g/dL (6.3-8.2)
[2020-04-23] MEDS: Advair Hfa 230/21 Mcg COMMON CANISTER IH SCH ×2 (06:49→19:28)
[2020-04-23] MEDS: ULTRAM 50 MG PO PRN (07:42)
[2020-04-23] MEDS ORDERED: Epipen 0.3 MG IM PRN (08:14)
[2020-04-23] MEDS: ROCEPHIN 1 Gm-D5w 50 ml Bag** 1 G/50 ML IVPB IV SCH (09:20)
[2020-04-23] MEDS: Mucinex 600MG ER Tabs PO SCH ×2 (09:20→21:35)
[2020-04-23] MEDS: ENOXAPARIN SODIUM SQ SCH (09:20)
[2020-04-23] MEDS: CLARITIN 10 MG PO SCH (09:20)
[2020-04-23] MEDS: TOLVAPTAN PO SCH (09:20)
[2020-04-23] MEDS: Coreg 3.125 MG PO SCH ×2 (09:20→21:35)
[2020-04-23] MEDS: Zithromax 500 MG/ 250 ML NaCl Premix 500 MG/250 ML IVPB IV SCH (10:05)
[2020-04-23] MEDS: Magnesium 1 Gm / 100 Ml D5W*** 100 ML IV SCH ×2 (15:21→15:58)
[2020-04-23] MEDS: Spiriva 18 Mcg/Cap Inhaler IH SCH (19:29)
[2020-04-24 06:24] LABS: BASOPHIL % 1.2 % (0.0-0.4); Basophil (Absolute #) 0.06 (0-0.4); Eosinophil % 2.6 % (0.00-5.0); Eosinophil (Absolute #) 0.13 (0-0.5); Hematocrit 33.9 % (35-47); Hemoglobin 11.3 gm/dl (12.0-16.0); Lymphocyte (Absolute #) 0.74 (1.0-4.6); Lymphocytes % 14.9 % (24.0-44.0); Mean Cell Volume 102.1 fl (78-100); Mean Corpuscular Hgb Concent. 33.3 g/dl (32-36); Mean Platelet Volume 8.9 fl (7.5-11.0); Monocyte (Absolute #) 0.44 (0.0-1.3); Monocytes % 8.9 % (0.0-12.0); Neutrophil % 72.4 % (36.0-66.0); Platelet Count 235 K/mm3 (150-450); Red Blood Count 3.32 M/mm3 (4.1-5.4); Red Cell Distribution Width 14.5 % (11.5-14.0)
[2020-04-24] MEDS: Advair Hfa 230/21 Mcg COMMON CANISTER IH SCH ×2 (06:44→18:34)
--- NOTE | 2020-04-24 08:14 | PCM.NOTE ---
Date and Time: 04/24/20812 Subjective Assessment: last 24 hours events and chart reviewed. - Review of Systems Constitutional: No Fever, No Chills Eyes: No Symptoms Ears, Nose, & Throat: No Symptoms Respiratory: No Cough, No Short Of Breath Cardiac: No Chest Pain, No Edema, No Syncope Abdominal/Gastrointestinal: No Abdominal Pain, No Nausea, No Vomiting, No Diarrhea Genitourinary Symptoms: No Dysuria Musculoskeletal: No Back Pain, No Neck Pain Skin: No Rash Neurological: No Dizziness, No Focal Weakness, No Sensory Changes Psychological: No Symptoms Endocrine: No Symptoms Hematologic/Lymphatic: No Symptoms Immunological/Allergic: No Symptoms Objective Exam General Appearance: no apparent distress, alert Neurologic Exam: alert, oriented x 3, cooperative, normal mood/affect, nml cerebellar function, sensation nml, No motor deficits Skin Exam: normal color, warm, dry Eye Exam: PERRL, EOMI, eyes nml inspection Ears, Nose, Throat Exam: normal ENT inspection, pharynx normal, moist mucous membranes Neck Exam: normal inspection, non-tender, supple, full range of motion Respiratory Exam: normal breath sounds, lungs clear, No respiratory distress Cardiovascular Exam: regular rate/rhythm, normal heart sounds Gastrointestinal/Abdomen Exam: soft, No tenderness, No mass Extremity Exam: normal inspection, normal range of motion Back Exam: normal inspection, normal range of motion, No CVA tenderness, No vertebral tenderness Pelvic Exam: deferred Rectal Exam: deferred OBJECTIVE DATA Vital Signs: Vital Signs - 24 hr Temp Pulse Resp BP Pulse Ox 04/24/20 07:00 98.4 F 77 16 148/70 95 04/24/20 06:46 78 16 93 L 04/24/20 04:00 17 04/24/20 03:00 98.7 F 80 17 149/70 93 L 04/24/20 00:00 18 04/23/20 23:01 98.6 F 81 18 138/73 96 04/23/20 20:00 16 04/23/20 19:29 98.4 F 81 16 139/68 95 04/23/20 19:28 81 16 95 04/23/20 16:00 16 04/23/20 15:00 97.9 F 78 16 160/77 94 L 04/23/20 11:00 98.1 F 76 18 138/75 96 Pain Assessment - Last Documented Pain Intensity 0 Intake and Output: Intake & Output 04/21/20 04/22/20 04/23/20 04/24/20 11:59 11:59 11:59 11:59 Intake Total 2467 270 420 120 Output Total 500 200 200 300 Balance 1967 70 220 -180 Weight 51.1 kg 48 kg 47 kg Lab Results: Lab Results-Last 24 Hours 04/24/20 04/24/20 Range/Units 05:50 05:50 WBC 5.0 (4.0-10.5) K/mm3 RBC 3.32 L (4.1-5.4) M/mm3 Hgb 11.3 L (12.0-16.0) gm/dl Hct 33.9 L (35-47) % MCV 102.1 H (78-100) fl MCH 34.0 H (26-32) pg MCHC 33.3 (32-36) g/dl RDW 14.5 H (11.5-14.0) % Plt Count 235 (150-450) K/mm3 MPV 8.9 (7.5-11.0) fl Gran % 72.4 H (36.0-66.0) % Eos # (Auto) 0.13 (0-0.5) Absolute Lymphs (auto) 0.74 L (1.0-4.6) Absolute Monos (auto) 0.44 (0.0-1.3) Lymphocytes % 14.9 L (24.0-44.0) % Monocytes % 8.9 (0.0-12.0) % Eosinophils % 2.6 (0.00-5.0) % Basophils % 1.2 (0.0-0.4) % Absolute Granulocytes 3.60 (1.4-6.9) Basophils # 0.06 (0-0.4) Magnesium 1.8 (1.6-2.3) mg/dL Multi-Disciplinary Progress Notes: Multi-Disciplinary Progress Notes 04/23/20 16:12 Case Management Note by Danita Maya S/W DR. RODRIGUEZ ABOUT ALTERNATIVES FOR SAMSCA- HE WANTED TO SEE IF URE-NA OR DEMECLOCYCLINE WOULD BE COVERED INSTEAD. DEMECLOCYCLINE- NOT COVERED AND IS $1,117 OUT OF POCKET URE-NA- IS NOT COVERED AND IS >$250 OUT OF POCKET PATIENT IS ON MEDICAID- S/W HER [place]- NEITHER ONE OF THESE ARE AFFORDABLE FOR PATIENT. DR. NAVARRETE UPDATED THAT WE WILL NOT KNOW IF SAMSCA IS APPROVED UNTIL AT LEAST SUNDAY. HE FEELS D/T PATIENT'S CURRENT SODIUM LEVEL AND METAL STATUS SHE NEEDS TO STAY OVER THE WEEKEND TO GET SODIUM UP. WE CAN THEN RE-ADDRESS THE SAMSCA MEDICATION AGAIN ON SUNDAY- HOPEFULLY IT WILL BE APPROVED. PER [facility] IT IS SCHEDULED TO BE SENT TO PATIENT ON APRIL 29 IF APPROVED. WILL CALL SUNDAY, IF APPROVED, WILL ASK FOR OVERNIGHT SHIPPING AT THAT TIME. PATIENT'S SIG OTHER UPDATED ON SITUATION AND WILL UPDATE HER SISTER. THEY ARE STILL PLANNING TO PROVIDE 24 HR CARE FOR HER AT TIME OF DC. WILL TOUCH BASE AGAIN WITH THEM ON SUNDAY Initialized on 04/23/20 16:12 - END OF NOTE 04/23/20 14:38 Case Management Note by Danita Maya CALLED [facility] AGAIN TO CHECK ON SAMSCA- WILL LIKELY NOT KNOW IF INSURANCE APPROVED MED AND COPAY IS AFFORDABLE UNTIL SUNDAY AM Initialized on 04/23/20 14:38 - END OF NOTE 04/23/20 14:14 Case Management Note by Danita Maya CALLED [facility] FIRST THING THIS AM. THEY STATED THAT THEY DID NOT HAVE PATIENT'S INSURANCE ON FILE AND WOULD NEED TO VERIFY THAT. I GAVE THEM THE INFORMATION AND THEY WERE GOING TO CALL THE INSURANCE TO VERIFY IT. THEY WERE ALSO GOING TO SEND AN EMAIL TO [place] THE VERIFICATION. THEY STATED TO CALL BACK IN APPROX 2 HRS.- SHOULD BE ABLE TO KNOW SOMETHING THEN. I CALLED BACK 2 HRS LATER WAS TOLD HER INSURNACE WAS STILL NOT VERIFIED AND THAT THAT COULD TAKE 24-72 HRS TO VERIFY. COST IS UNKNOWN UNTIL INSURANCE IS VERIFIED. NURSE CALLING NEPHROLOGY TO SEE IF SAMSCA IS ABSOLUTELY NECCESSARY AT TIME OF DC Initialized on 04/23/20 14:14 - END OF NOTE 04/23/20 09:08 Case Management Note by Danita Maya [facility] HAS ACCEPTED PATIENT. THEY WILL NEED CONTACTED AT TIME OF DC AT [phone]. THEY WILL ALSO NEED FAXED THE DC INSTRUCTIONS, DC MED LIST AND DC SUMMARY (IF AVAILABLE) TO [phone] Initialized on 04/23/20 09:08 - END OF NOTE Assessment/Plan (1) Hyponatremia Current Visit: Yes Status: Acute Code(s): E87.1 - HYPO-OSMOLALITY AND HYPONATREMIA (2) Hypoxia Current Visit: Yes Status: Acute Code(s): R09.02 - HYPOXEMIA (3) Mucus plugging of bronchi Current Visit: Yes Status: Acute Code(s): J98.09 - OTHER DISEASES OF [place], NOT ELSEWHERE CLASSIFIED (4) Postobstructive pneumonia Current Visit: Yes Status: Acute Code(s): J18.9 - PNEUMONIA, UNSPECIFIED ORGANISM (5) COPD with hypoxia Current Visit: No Status: Acute Code(s): J44.9 - CHRONIC OBSTRUCTIVE PULMONARY DISEASE, UNSPECIFIED; R09.02 - HYPOXEMIA
[2020-04-24] MEDS: Coreg 3.125 MG PO SCH ×2 (09:12→22:00)
[2020-04-24] MEDS: CLARITIN 10 MG PO SCH (09:12)
[2020-04-24] MEDS: Mucinex 600MG ER Tabs PO SCH ×2 (09:12→22:00)
[2020-04-24] MEDS: ENOXAPARIN SODIUM SQ SCH (09:13)
[2020-04-24] MEDS: TOLVAPTAN PO SCH (09:13)
[2020-04-24] MEDS: ROCEPHIN 1 Gm-D5w 50 ml Bag** 1 G/50 ML IVPB IV SCH (09:13)
[2020-04-24] MEDS: Zithromax 500 MG/ 250 ML NaCl Premix 500 MG/250 ML IVPB IV SCH (10:56)
[2020-04-24] MEDS: Spiriva 18 Mcg/Cap Inhaler IH SCH (18:34)
[2020-04-25] MEDS: ULTRAM 50 MG PO PRN (01:35)
[2020-04-25 05:52] LABS: Absolute Neutrophil Ct (ANC) 3.87 (1.4-6.9); BASOPHIL % 0.7 % (0.0-0.4); Basophil (Absolute #) 0.04 (0-0.4); Eosinophil % 2.9 % (0.00-5.0); Eosinophil (Absolute #) 0.16 (0-0.5); Hematocrit 33.7 % (35-47); Hemoglobin 11.3 gm/dl (12.0-16.0); Lymphocyte (Absolute #) 0.79 (1.0-4.6); Lymphocytes % 14.3 % (24.0-44.0); Mean Cell Volume 101.5 fl (78-100); Mean Corpuscular Hgb Concent. 33.5 g/dl (32-36); Mean Platelet Volume 8.8 fl (7.5-11.0); Monocyte (Absolute #) 0.68 (0.0-1.3); Monocytes % 12.3 % (0.0-12.0); Neutrophil % 69.8 % (36.0-66.0); Platelet Count 251 K/mm3 (150-450); Red Blood Count 3.32 M/mm3 (4.1-5.4); Red Cell Distribution Width 14.6 % (11.5-14.0); White Blood Count 5.5 K/mm3 (4.0-10.5)
[2020-04-25 06:04] LABS: ALBUMIN 3.2 g/dL (3.5-5.0); ALKALINE PHOSPHATASE 153 U/L (38-126); BLOOD UREA NITROGEN 6 mg/dL (7-17); CHLORIDE 90 mmol/L (98-107); Carbon Dioxide 25 mmol/L (22-30); EST GLOMERULAR FILTRATION RATE > 60.0 ML/MIN; Glucose 92 mg/dL (74-106); Potassium 3.3 mmol/L (3.5-5.1); SGOT/AST 27 U/L (14-36); SGPT/ALT 15 U/L (0-35); SODIUM 122 mmol/L (137-145); Total Protein 6.3 g/dL (6.3-8.2)
[2020-04-25] MEDS: Advair Hfa 230/21 Mcg COMMON CANISTER IH SCH ×2 (06:50→19:33)
[2020-04-25] MEDS: Zithromax 500 MG/ 250 ML NaCl Premix 500 MG/250 ML IVPB IV SCH (09:07)
[2020-04-25] MEDS: Mucinex 600MG ER Tabs PO SCH ×2 (09:07→21:40)
[2020-04-25] MEDS: ROCEPHIN 1 Gm-D5w 50 ml Bag** 1 G/50 ML IVPB IV SCH (09:07)
[2020-04-25] MEDS: CLARITIN 10 MG PO SCH (09:08)
[2020-04-25] MEDS: ENOXAPARIN SODIUM SQ SCH (09:08)
[2020-04-25] MEDS: TOLVAPTAN PO SCH (09:08)
--- NOTE | 2020-04-25 10:16 | PCM.NOTE ---
Date and Time: 04/25/20 1016 Subjective Assessment: doing ok - Review of Systems Constitutional: No Fever, No Chills Eyes: No Symptoms Ears, Nose, & Throat: No Symptoms Respiratory: No Cough, No Short Of Breath Cardiac: No Chest Pain, No Edema, No Syncope Abdominal/Gastrointestinal: No Abdominal Pain, No Nausea, No Vomiting, No Diarrhea Genitourinary Symptoms: No Dysuria Musculoskeletal: No Back Pain, No Neck Pain Skin: No Rash Neurological: No Dizziness, No Focal Weakness, No Sensory Changes Psychological: No Symptoms Endocrine: No Symptoms Hematologic/Lymphatic: No Symptoms Immunological/Allergic: No Symptoms Objective Exam General Appearance: no apparent distress, alert Neurologic Exam: alert, oriented x 3, cooperative, normal mood/affect, nml cerebellar function, sensation nml, No motor deficits Skin Exam: normal color, warm, dry Eye Exam: PERRL, EOMI, eyes nml inspection Ears, Nose, Throat Exam: normal ENT inspection, pharynx normal, moist mucous membranes Neck Exam: normal inspection, non-tender, supple, full range of motion Respiratory Exam: normal breath sounds, lungs clear, No respiratory distress Cardiovascular Exam: regular rate/rhythm, normal heart sounds Gastrointestinal/Abdomen Exam: soft, No tenderness, No mass Extremity Exam: normal inspection, normal range of motion Back Exam: normal inspection, normal range of motion, No CVA tenderness, No vertebral tenderness Pelvic Exam: deferred Rectal Exam: deferred OBJECTIVE DATA Vital Signs: Vital Signs - 24 hr Temp Pulse Resp BP Pulse Ox 04/25/20 08:00 18 04/25/20 07:00 98.0 F 88 18 96/60 94 L 04/25/20 06:54 88 16 98 04/25/20 04:00 17 04/25/20 03:00 98.3 F 91 H 17 94/57 95 04/25/20 00:00 20 04/24/20 23:37 98.5 F 89 20 161/74 97 04/24/20 20:00 16 04/24/20 19:00 98.4 F 86 16 136/67 96 04/24/20 18:34 88 17 92 L 04/24/20 15:00 98.8 F 80 16 163/72 93 L 04/24/20 11:00 98.1 F 81 16 133/71 95 Pain Assessment - Last Documented Pain Intensity 0 Intake and Output: Intake & Output 04/22/20 04/23/20 04/24/20 04/25/20 11:59 11:59 11:59 11:59 Intake Total 270 420 150 770 Output Total 200 200 300 350 Balance 70 220 -150 420 Weight 48 kg 47 kg Lab Results: Lab Results-Last 24 Hours 04/25/20 04/25/20 04/25/20 Range/Units 05:25 05:25 05:25 WBC 5.5 (4.0-10.5) K/mm3 RBC 3.32 L (4.1-5.4) M/mm3 Hgb 11.3 L (12.0-16.0) gm/dl Hct 33.7 L (35-47) % MCV 101.5 H (78-100) fl MCH 34.0 H (26-32) pg MCHC 33.5 (32-36) g/dl RDW 14.6 H (11.5-14.0) % Plt Count 251 (150-450) K/mm3 MPV 8.8 (7.5-11.0) fl Gran % 69.8 H (36.0-66.0) % Eos # (Auto) 0.16 (0-0.5) Absolute Lymphs (auto) 0.79 L (1.0-4.6) Absolute Monos (auto) 0.68 (0.0-1.3) Lymphocytes % 14.3 L (24.0-44.0) % Monocytes % 12.3 H (0.0-12.0) % Eosinophils % 2.9 (0.00-5.0) % Basophils % 0.7 (0.0-0.4) % Absolute Granulocytes 3.87 (1.4-6.9) Basophils # 0.04 (0-0.4) Sodium 122 L (137-145) mmol/L Potassium 3.3 L (3.5-5.1) mmol/L Chloride 90 L (98-107) mmol/L Carbon Dioxide 25 (22-30) mmol/L Anion Gap 11.0 (5-15) MEQ/L BUN 6 L (7-17) mg/dL Creatinine 0.40 L (0.52-1.04) mg/dL Estimated GFR > 60.0 ML/MIN Glucose 92 (74-106) mg/dL Calcium 9.0 (8.4-10.2) mg/dL Magnesium 1.6 (1.6-2.3) mg/dL Total Bilirubin 0.50 (0.2-1.3) mg/dL AST 27 (14-36) U/L ALT 15 (0-35) U/L Alkaline Phosphatase 153 H (38-126) U/L Serum Total Protein 6.3 (6.3-8.2) g/dL Albumin 3.2 L (3.5-5.0) g/dL Assessment/Plan (1) Hyponatremia Current Visit: Yes Status: Acute Code(s): E87.1 - HYPO-OSMOLALITY AND HYPONATREMIA (2) Hypoxia Current Visit: Yes Status: Acute Code(s): R09.02 - HYPOXEMIA (3) Mucus plugging of bronchi Current Visit: Yes Status: Acute Code(s): J98.09 - OTHER DISEASES OF [facility], NOT ELSEWHERE CLASSIFIED (4) Postobstructive pneumonia Current Visit: Yes Status: Acute Code(s): J18.9 - PNEUMONIA, UNSPECIFIED ORGANISM (5) COPD with hypoxia Current Visit: No Status: Acute Code(s): J44.9 - CHRONIC OBSTRUCTIVE PULMONARY DISEASE, UNSPECIFIED; R09.02 - HYPOXEMIA
[2020-04-25] MEDS: Coreg 3.125 MG PO SCH ×2 (12:21→21:40)
[2020-04-25] MEDS: Spiriva 18 Mcg/Cap Inhaler IH SCH (19:33)
[2020-04-26 05:32] LABS: Absolute Neutrophil Ct (ANC) 3.25 (1.4-6.9); BASOPHIL % 1.3 % (0.0-0.4); Basophil (Absolute #) 0.06 (0-0.4); Eosinophil % 3.4 % (0.00-5.0); Eosinophil (Absolute #) 0.16 (0-0.5); Hematocrit 35.3 % (35-47); Hemoglobin 11.7 gm/dl (12.0-16.0); Lymphocyte (Absolute #) 0.81 (1.0-4.6); Lymphocytes % 17.1 % (24.0-44.0); Mean Corpuscular Hemoglobin 33.8 pg (26-32); Mean Corpuscular Hgb Concent. 33.1 g/dl (32-36); Monocyte (Absolute #) 0.46 (0.0-1.3); Monocytes % 9.7 % (0.0-12.0); Neutrophil % 68.5 % (36.0-66.0); Platelet Count 281 K/mm3 (150-450); Red Blood Count 3.46 M/mm3 (4.1-5.4); Red Cell Distribution Width 14.6 % (11.5-14.0); White Blood Count 4.7 K/mm3 (4.0-10.5)
[2020-04-26 05:39] LABS: ALBUMIN 3.4 g/dL (3.5-5.0); ALKALINE PHOSPHATASE 168 U/L (38-126); ANION GAP 12.1 MEQ/L (5-15); BLOOD UREA NITROGEN 6 mg/dL (7-17); CHLORIDE 92 mmol/L (98-107); Carbon Dioxide 24 mmol/L (22-30); Creatinine 1 0.36 mg/dL (0.52-1.04); EST GLOMERULAR FILTRATION RATE > 60.0 ML/MIN; Glucose 81 mg/dL (74-106); Potassium 3.3 mmol/L (3.5-5.1); SGOT/AST 29 U/L (14-36); SGPT/ALT 15 U/L (0-35); SODIUM 125 mmol/L (137-145); Total Protein 6.7 g/dL (6.3-8.2)
[2020-04-26] MEDS: Advair Hfa 230/21 Mcg COMMON CANISTER IH SCH (06:49)
[2020-04-26 06:53] VITALS: O2SAT 96
--- NOTE | 2020-04-26 08:23 | DS ---
DISCHARGE DIAGNOSES: 1) HYPOXIA. 2) HYPONATREMIA. 3) DEMENTIA. 4) CHRONIC OBSTRUCTIVE PULMONARY DISEASE. 5) PNEUMONIA. HISTORY: The patient is a 59 year-old white female who presented to the emergency room with complaints of shortness of breath and just not feeling quite right. The patient was noted to have an oxygen level from 87 to 88% range on room air upon her arrival to the emergency room. The patient was also noted to be profoundly hyponatremic with a sodium of 112. She was brought into the hospital for treatments. We had consultations with Dr. Somers from nephrology and Dr. Blas from pulmonary. The patient apparently had some mucous plugging noted on the initial CT scan. The patient was started on Rocephin and Zithromax due to what was concern to be a possible developing pneumonia. The patient also was noted to have compression fractures of L1 through L4 which appeared to be of undetermined nature as far as chronicity. HOSPITAL COURSE: The patient was admitted to the medicine vaca and started on fluid restriction of 700 cc orally and placed on D5 normal saline plus 20 of K. The patient's sodium level was slow to rise. The patient was seen by Dr. Somers and placed on Samsca. With the above treatments the patient finally reached a sodium level of 125 on 04/26/2020. We were having difficulty procuring the Samsca for the patient for outpatient and on 04/26/2020 it was still undetermined whether the patient will be able to have this as an outpatient. We will have the patient follow up with Dr. Somers as an outpatient within the next week. She will also see Dr. Blas. She has responded nicely to the Rocephin and Zithromax and now to be off of these medications. DISCHARGE INSTRUCTIONS: Her discharge instructions will be to continue the fluid restriction at 700 cc per day. She will hopefully be able to get the Samsca medication to use. She as oxygen that she uses at home at night. She is to continue to use her Symbicort inhaler, ipratropium and Albuterol nebulizer DuoNeb, lisinopril 20 mg a day, Spiriva 18 mg a day, carvedilol 3.125 mg b.i.d.
[2020-04-26 08:31] VITALS: BP 151/80; PULSE 83
== END 2020-04-26 11:00 | disposition home health service (06) | DRG 205 ==
LOC: ED 23:53 → MED SURG 04-20 05:57
PROVIDERS: ADMIT Family Medicine; ATTEND Family Medicine
DX: R09.02 Hypoxemia (principal); J18.9 Pneumonia, unspecified organism; E87.1 Hypo-osmolality and hyponatremia; J98.09 Other diseases of bronchus, not elsewhere classified; J44.9 Chronic obstructive pulmonary disease, unspecified; I10 Essential (primary) hypertension; J45.909 Unspecified asthma, uncomplicated; E86.0 Dehydration; F03.90 Unspecified dementia, unspecified severity, without behavioral disturbance, psychotic disturbance, mood disturbance, and anxiety; F17.210 Nicotine dependence, cigarettes, uncomplicated; Z79.899 Other long term (current) drug therapy; E87.6 Hypokalemia; R41.0 Disorientation, unspecified; M48.56XG Collapsed vertebra, not elsewhere classified, lumbar region, subsequent encounter for fracture with delayed healing
CPT/HCPCS: 0241U; 36000; 36415; 36600; 71045; 71260; 80053; 82375; 82533; 82607; 82803; 83605; 83735; 83880; 83935; 84134; 84300; 84425; 84443; 84484; 85025; 85379; 93005; 93041; 94640; 94760; 96360; 96365; 96374; 99284; 99291; J0456; J0696; J1200; J1650; J2060; J2920; J3475; J3480; A9270-GY

== ENCOUNTER 2020-07-15 18:49 | Observation (INO) | payer OTHER ==
--- NOTE | 2020-07-15 19:05 | ERPHSYRPT ---
- History of Present Illness Time Seen by Provider: 07/15/20 19:05 Source: patient Exam Limitations: no limitations Physician History: This a 60-year-old cachectic female who has chronic low sodium levels and is being followed by Dr. Marina who is her banbury machine operator. Patient's primary care physician is Dr. Albright. Her banbury machine operator office had called her today to let her know her sodium level was 118. In reviewing this patient's old lab reports going back to March 2020, the range of her sodium level has been 112 to 125. She chronically runs very low patient specifically states that she has no symptoms whatsoever. She states that she feels how she normally feels. However, the office of her banbury machine operator called and told her to come to the emergency department. Timing/Duration: today Severity: mild Associated Symptoms: denies symptoms Allergies/Adverse Reactions: shellfish derived Allergy (Severe, Verified 07/15/20 20:17) diphtheria,pertussis (acellular),te [From Adacel(Tdap Adolesn/Adult)(PF)] Allergy (Unknown, Verified 07/15/20 20:17) Penicillins Allergy (Verified 07/15/20 20:17) Swelling strawberry Allergy (Verified 07/15/20 20:17) Home Medications: Albuterol Sulfate [Albuterol Sulfate Hfa] 2 puff IH Q4H PRN PRN 08/12/18 [History] Budesonide/Formoterol Fumarate [Symbicort 160-4.5 Mcg Inhaler] 2 puff IH BID 08/12/18 [History] Cetirizine HCl [All Day Allergy] 10 mg PO DAILY 08/12/18 [History] EPINEPHrine [Epipen 0.3 MG] 0.3 mg IJ UD 08/12/18 [History] Ipratropium/Albuterol Sulfate [Iprat-Albut 0.5-3(2.5) mg/3 ml] 2.5 ml IH DAILY 08/12/18 [History] Tiotropium [place] [Spiriva] 2 puff IH QHS 08/12/18 [History] carvediloL [Carvedilol] 3.125 mg PO BID 08/12/18 [History] Hx Tetanus, Diphtheria Vaccination/Date Given: No Hx Influenza Vaccination/Date Given: No Hx Pneumococcal Vaccination/Date Given: No Travel Risk - International Travel Have you traveled outside of the country in past 3 weeks: No - Coronavirus Screening Are you exhibiting any of the following symptoms?: No Close contact with a COVID-19 positive Pt in past 14-21 Days: No - Review of Systems Constitutional: No Symptoms Eyes: No Symptoms Ears, Nose, & Throat: No Symptoms Respiratory: No Symptoms Cardiac: No Symptoms Abdominal/Gastrointestinal: No Symptoms Genitourinary Symptoms: No Symptoms Musculoskeletal: No Symptoms Neurological: No Symptoms Psychological: No Symptoms Endocrine: No Symptoms Hematologic/Lymphatic: No Symptoms Immunological/Allergic: No Symptoms All Other Systems: Reviewed and Negative - Past Medical History Pertinent Past Medical History: Yes Neurological History: No Pertinent History ENT History: No Pertinent History Cardiac History: Hypertension Respiratory History: Asthma, COPD Endocrine Medical History: No Pertinent History Musculoskeletal History: No Pertinent History GI Medical History: No Pertinent History History: No Pertinent History Psycho-Social History: No Pertinent History Female Reproductive Disorders: No Pertinent History - Past Surgical History Past Surgical History: Yes Neuro Surgical History: No Pertinent History Cardiac: No Pertinent History Respiratory: No Pertinent History Gastrointestinal: No Pertinent History Genitourinary: No Pertinent History Musculoskeletal: No Pertinent History Female Surgical History: No Pertinent History - Social History Smoking Status: Current every day smoker How long have you smoked: "20 years" Exposure to second hand smoke: Yes Drug Use: none Patient Lives Alone: No - Nursing Vital Signs Nursing Vital Signs: Initial Vital Signs Temperature 98.2 F 07/15/20 20:08 Pulse Rate 81 07/15/20 20:08 Respiratory Rate 18 07/15/20 20:08 Blood Pressure 183/97 07/15/20 20:08 O2 Sat by Pulse Oximetry 99 07/15/20 20:08 Pain Scale Pain Intensity 0 - Physical Exam General Appearance: no apparent distress, alert, anxiety Eye Exam: PERRL/EOMI, eyes nml inspection Ears, Nose, Throat Exam: normal ENT inspection, moist mucous membranes Neck Exam: normal inspection, non-tender, supple, full range of motion Respiratory Exam: normal breath sounds, lungs clear, airway intact, No chest tenderness, No respiratory distress Cardiovascular Exam: regular rate/rhythm, normal heart sounds, normal peripheral pulses Gastrointestinal/Abdomen Exam: soft, normal bowel sounds, No tenderness Pelvic Exam: not done Rectal Exam: not done Back Exam: normal inspection, normal range of motion, No CVA tenderness, No vertebral tenderness Extremity Exam: normal inspection, normal range of motion, pelvis stable Neurologic Exam: alert, oriented x 3, cooperative, ornithology teacher II-XII nml as tested, normal mood/affect, nml cerebellar function, nml station & gait, sensation nml Skin Exam: normal color, warm, dry Lymphatic Exam: No adenopathy SpO2 Interpretation: normal O2 Delivery: Room Air Ordered Tests: Active Orders 24 hr Category Date Time Status IV Insertion STAT Care 07/15/20 20:42 Active CBC W DIFF Stat Lab 07/15/20 20:51 Completed CMP Stat Lab 07/15/20 20:51 Completed POTASSIUM, URINE RANDOM Stat Lab 07/15/20 22:04 Completed Sodium, Urine Stat Lab 07/15/20 22:04 Completed UA W/RFX UR CULTURE Stat Lab 07/15/20 22:02 Completed Transfer Order Routine Transfer 07/15/20 Ordered Medication Summary Discontinued Medications Generic Name Dose Route Start Last Admin Trade Name Freq PRN Reason Stop Dose Admin Sodium Chloride 1,000 mls @ 999 mls/hr 07/15/20 20:42 07/15/20 21:32 Sodium Chloride 0.9% 1000 Ml IV 07/15/20 21:42 999 mls/hr .Q1H1M STA Administration Sodium Chloride Confirm 07/15/20 21:30 Sodium Chloride 0.9% 1000 Ml Administered 07/15/20 21:31 Dose 1,000 mls @ ud .ROUTE .STK-MED ONE Lab/Rad Data: Laboratory Result Diagrams 07/15/20 20:51 07/15/20 20:51 Laboratory Results 07/15/20 07/15/20 07/15/20 Range/Units 22:04 22:02 20:51 WBC (4.0-10.5) K/mm3 RBC (4.1-5.4) M/mm3 Hgb (12.0-16.0) gm/dl Hct (35-47) % MCV (78-100) fl MCH (26-32) pg MCHC (32-36) g/dl RDW (11.5-14.0) % Plt Count (150-450) K/mm3 MPV (7.5-11.0) fl Gran % (36.0-66.0) % Eos # (Auto) (0-0.5) Absolute Lymphs (auto) (1.0-4.6) Absolute Monos (auto) (0.0-1.3) Lymphocytes % (24.0-44.0) % Monocytes % (0.0-12.0) % Eosinophils % (0.00-5.0) % Basophils % (0.0-0.4) % Absolute Granulocytes (1.4-6.9) Basophils # (0-0.4) Sodium 118 L* (137-145) mmol/L Potassium 3.5 (3.5-5.1) mmol/L Chloride 84 L (98-107) mmol/L Carbon Dioxide 27 (22-30) mmol/L Anion Gap 10.7 (5-15) MEQ/L BUN 6 L (7-17) mg/dL Creatinine 0.39 L (0.52-1.04) mg/dL Estimated GFR > 60.0 ML/MIN Glucose 97 (74-106) mg/dL Calcium 9.7 (8.4-10.2) mg/dL Total Bilirubin 0.50 (0.2-1.3) mg/dL AST 32 (14-36) U/L ALT 11 (0-35) U/L Alkaline Phosphatase 96 (38-126) U/L Serum Total Protein 7.3 (6.3-8.2) g/dL Albumin 3.9 (3.5-5.0) g/dL Urine Color STRAW (YELLOW) Urine Appearance CLEAR (CLEAR) Urine pH 6.0 (5-6) Ur Specific [place] 1.005 (1.005-1.025) Urine Protein NEGATIVE (Negative) Urine Ketones NEGATIVE (NEGATIVE) Urine Blood NEGATIVE (0-5) Leonardo/ul Urine Nitrite NEGATIVE (NEGATIVE) Urine Bilirubin NEGATIVE (NEGATIVE) Urine Urobilinogen NEGATIVE (0-1) mg/dL Ur Leukocyte Esterase TRACE (NEGATIVE) Urine WBC (Auto) 3-5 (0-5) /HPF Urine RBC (Auto) 0-2 (0-2) /HPF U Hyaline Cast (Auto) 0-2 (0-2) /LPF U Epithel Cells (Auto) RARE (FEW) /HPF Urine Bacteria (Auto) RARE (NEGATIVE) /HPF Amorphous Crystals FEW (NEGATIVE) /HPF Urine Mucus (Auto) SLIGHT (NEGATIVE) /HPF Urine Culture Reflexed NO (NO) Urine Sodium 74 (30-90) mmol/L Urine Potassium 20.5 mmol/L Urine Glucose NEGATIVE (NEGATIVE) mg/dL 07/15/20 Range/Units 20:51 WBC 6.9 (4.0-10.5) K/mm3 RBC 3.70 L (4.1-5.4) M/mm3 Hgb 12.2 (12.0-16.0) gm/dl Hct 35.5 (35-47) % MCV 95.9 (78-100) fl MCH 33.0 H (26-32) pg MCHC 34.4 (32-36) g/dl RDW 12.6 (11.5-14.0) % Plt Count 324 (150-450) K/mm3 MPV 8.9 (7.5-11.0) fl Gran % 67.5 H (36.0-66.0) % Eos # (Auto) 0.20 (0-0.5) Absolute Lymphs (auto) 1.44 (1.0-4.6) Absolute Monos (auto) 0.56 (0.0-1.3) Lymphocytes % 21.0 L (24.0-44.0) % Monocytes % 8.2 (0.0-12.0) % Eosinophils % 2.9 (0.00-5.0) % Basophils % 0.4 (0.0-0.4) % Absolute Granulocytes 4.62 (1.4-6.9) Basophils # 0.03 (0-0.4) Sodium (137-145) mmol/L Potassium (3.5-5.1) mmol/L Chloride (98-107) mmol/L Carbon Dioxide (22-30) mmol/L Anion Gap (5-15) MEQ/L BUN (7-17) mg/dL Creatinine (0.52-1.04) mg/dL Estimated GFR ML/MIN Glucose (74-106) mg/dL Calcium (8.4-10.2) mg/dL Total Bilirubin (0.2-1.3) mg/dL AST (14-36) U/L ALT (0-35) U/L Alkaline Phosphatase (38-126) U/L Serum Total Protein (6.3-8.2) g/dL Albumin (3.5-5.0) g/dL Urine Color (YELLOW) Urine Appearance (CLEAR) Urine pH (5-6) Ur Specific [place] (1.005-1.025) Urine Protein (Negative) Urine Ketones (NEGATIVE) Urine Blood (0-5) Leonardo/ul Urine Nitrite (NEGATIVE) Urine Bilirubin (NEGATIVE) Urine Urobilinogen (0-1) mg/dL Ur Leukocyte Esterase (NEGATIVE) Urine WBC (Auto) (0-5) /HPF Urine RBC (Auto) (0-2) /HPF U Hyaline Cast (Auto) (0-2) /LPF U Epithel Cells (Auto) (FEW) /HPF Urine Bacteria (Auto) (NEGATIVE) /HPF Amorphous Crystals (NEGATIVE) /HPF Urine Mucus (Auto) (NEGATIVE) /HPF Urine Culture Reflexed (NO) Urine Sodium (30-90) mmol/L Urine Potassium mmol/L Urine Glucose (NEGATIVE) mg/dL - Progress Progress: unchanged Progress Note: 07/15/20 22:25 Medical decision making: This patient has chronic hyponatremia. Patient feels as though she is asymptomatic. Meeting, she does not feel any different than usual. I discussed this with her primary care physician, Dr. Albright. He feels, and I agree, the patient would be best served by placing the patient in observation repeating labs in the morning and run her normal saline fluid at approximately 125 cc an hour and fluid restrict her beyond this to 500 mL of fluid per 24 hours. Discussed with : Riddhi Counseled pt/family regarding: lab results, diagnosis - Departure Departure Disposition: Home Clinical Impression: Hyponatremia Condition: Stable Critical Care Time: No Referrals: SLY ALBRIGHT [Primary Care Provider] -
[2020-07-15] MEDS ORDERED: Sodium Chloride 0.9% 1000 ML 1,000 ML IV STA (20:42)
[2020-07-15 20:54] LABS: Absolute Neutrophil Ct (ANC) 4.62 (1.4-6.9); BASOPHIL % 0.4 % (0.0-0.4); Basophil (Absolute #) 0.03 (0-0.4); Eosinophil % 2.9 % (0.00-5.0); Hematocrit 35.5 % (35-47); Hemoglobin 12.2 gm/dl (12.0-16.0); Lymphocyte (Absolute #) 1.44 (1.0-4.6); Mean Cell Volume 95.9 fl (78-100); Mean Corpuscular Hgb Concent. 34.4 g/dl (32-36); Mean Platelet Volume 8.9 fl (7.5-11.0); Monocyte (Absolute #) 0.56 (0.0-1.3); Monocytes % 8.2 % (0.0-12.0); Neutrophil % 67.5 % (36.0-66.0); Platelet Count 324 K/mm3 (150-450); Red Cell Distribution Width 12.6 % (11.5-14.0); White Blood Count 6.9 K/mm3 (4.0-10.5)
[2020-07-15 21:08] LABS: ALBUMIN 3.9 g/dL (3.5-5.0); ALKALINE PHOSPHATASE 96 U/L (38-126); ANION GAP 10.7 MEQ/L (5-15); BLOOD UREA NITROGEN 6 mg/dL (7-17); CHLORIDE 84 mmol/L (98-107); Calcium 9.7 mg/dL (8.4-10.2); Carbon Dioxide 27 mmol/L (22-30); Creatinine 1 0.39 mg/dL (0.52-1.04); EST GLOMERULAR FILTRATION RATE > 60.0 ML/MIN; Glucose 97 mg/dL (74-106); Potassium 3.5 mmol/L (3.5-5.1); SGOT/AST 32 U/L (14-36); SGPT/ALT 11 U/L (0-35); Total Protein 7.3 g/dL (6.3-8.2)
[2020-07-15 21:29] LABS: SODIUM 118 mmol/L (137-145)
[2020-07-15] MEDS ORDERED: Sodium Chloride 0.9% 1000 ML 1,000 ML ONE (21:30)
[2020-07-15 22:38] LABS: POTASSIUM, URINE RANDOM 20.5 mmol/L
[2020-07-15 22:42] LABS: Amourphous Crystal FEW /HPF (NEGATIVE); Appearance CLEAR (CLEAR); Bacteria RARE /HPF (NEGATIVE); Bilirubin NEGATIVE (NEGATIVE); Blood NEGATIVE Ery/ul (0-5); Epithelial Cells RARE /HPF (FEW); Glucose NEGATIVE (NEGATIVE); Hyaline Casts 0-2 /LPF (0-2); Ketones NEGATIVE (NEGATIVE); Leukocyte Esterase TRACE (NEGATIVE); Mucus SLIGHT /HPF (NEGATIVE); Nitrite NEGATIVE (NEGATIVE); Protein,Urine Dip NEGATIVE (Negative); RBC 0-2 /HPF (0-2); Specific Gravity 1.005 (1.005-1.025); Urobilinogen NEGATIVE mg/dL (0-1)
[2020-07-15 23:18] LABS: INFLUENZA A NEGATIVE (NEGATIVE); INFLUENZA B NEGATIVE (NEGATIVE); RESPIRATORY SYNCTIAL VIRUS NEGATIVE (Negative)
[2020-07-15] MEDS ORDERED: TYLENOL 325 MG PO PRN (23:51)
[2020-07-15] MEDS ORDERED: Sodium Chloride 0.9% 1000 ML 1,000 ML IV SCH (23:51)
[2020-07-15] MEDS ORDERED: Zofran 4 MG/2 ML VIAL IV PRN (23:51)
[2020-07-16 05:32] LABS: Absolute Neutrophil Ct (ANC) 3.29 (1.4-6.9); BASOPHIL % 0.4 % (0.0-0.4); Basophil (Absolute #) 0.02 (0-0.4); Eosinophil % 2.9 % (0.00-5.0); Eosinophil (Absolute #) 0.15 (0-0.5); Hematocrit 31.1 % (35-47); Hemoglobin 10.5 gm/dl (12.0-16.0); Lymphocyte (Absolute #) 1.22 (1.0-4.6); Lymphocytes % 23.4 % (24.0-44.0); Mean Cell Volume 96.9 fl (78-100); Mean Corpuscular Hemoglobin 32.7 pg (26-32); Mean Corpuscular Hgb Concent. 33.8 g/dl (32-36); Mean Platelet Volume 8.7 fl (7.5-11.0); Monocyte (Absolute #) 0.53 (0.0-1.3); Monocytes % 10.2 % (0.0-12.0); Neutrophil % 63.1 % (36.0-66.0); Platelet Count 279 K/mm3 (150-450); Red Blood Count 3.21 M/mm3 (4.1-5.4); Red Cell Distribution Width 12.6 % (11.5-14.0); White Blood Count 5.2 K/mm3 (4.0-10.5)
[2020-07-16 05:39] LABS: ANION GAP 6.4 MEQ/L (5-15); BLOOD UREA NITROGEN 4 mg/dL (7-17); CHLORIDE 93 mmol/L (98-107); Calcium 8.5 mg/dL (8.4-10.2); Carbon Dioxide 27 mmol/L (22-30); Creatinine 1 0.38 mg/dL (0.52-1.04); EST GLOMERULAR FILTRATION RATE > 60.0 ML/MIN; Glucose 80 mg/dL (74-106); Potassium 3.2 mmol/L (3.5-5.1); SODIUM 123 mmol/L (137-145)
--- NOTE | 2020-07-16 07:55 | SSS ---
DISCHARGE DIAGNOSIS: HYPONATREMIA. HISTORY: The patient is a 60 year-old white female who went to get labs prior to seeing Dr. Somers today and was found to have a sodium level of 118 this is in the panic level. The patient was instructed to go to the emergency room where it was confirmed that she was 118. She was brought into the hospital for IV normal saline and fluid restriction. PAST MEDICAL/SURGICAL HISTORY: The patient's medical history is significant for chronic hyponatremia for which she has been seeing Dr. Somers for. Her sodium levels have been over the last year from 112 to 125. She has been completely functional the entire time with all these labs and had no issues whatsoever as far as neurologic signs or symptoms. The patient otherwise is cachectic. She has hypertension, asthma, chronic obstructive pulmonary disease. HOME MEDICATIONS: Albuterol on a PRN basis, Symbicort, carvedilol 3.125 mg b.i.d., cetirizine 10 mg a day. She has an EpiPen at home for her use should she need it. She takes Spiriva 2 puffs at night. ALLERGIES: PENICILLIN (SWELLING). ADACEL. SHELLFISH. SOCIAL HISTORY: She does still smoke. PHYSICAL EXAMINATION: The patient's vital signs on admission showed a temperature of 98.2F, pulse 81, respiratory rate 18 and blood pressure 183/97. O2 saturation 99% on room air. HEENT: Normocephalic, atraumatic. Pupils equal round reactive to light. Extraocular movements are intact. Oropharynx is pink and moist. NECK: Supple without lymphadenopathy, thyromegaly or JVD. CHEST: Clear to auscultation. HEART: Regular rate and rhythm without murmurs, rubs or gallops heard. ABDOMEN: Scaphoid. No palpable masses. EXTREMITIES: Without cyanosis, clubbing or edema. NEUROLOGIC: The patient is alert and oriented x3. No focal deficits are noted. LAB DATA AND TESTS: The patient's laboratory studies when she came into the emergency room: White count 6.9, hemoglobin 12.2, PLT count 324,000. Her glucose 97, BUN 6, creatinine 0.39, sodium 118. Electrolytes were normal other than chloride also low at 84. Liver enzymes were normal. She had a urine sodium at 74. She had UA showing specific gravity 1.005. COVID, influenza, RSV tests were negative. HOSPITAL COURSE: The patient was admitted to the medical floor where she was given normal saline at 125 cc/hour. She was placed on a 500 cc extra fluid restriction otherwise. By the next morning, her sodium was up to 123, potassium was slightly low at 3.2. She had a white count of 5.2, hemoglobin 10.5, PLT count 279,000. The patient was felt to be ready for discharge home again as she had no symptoms whatsoever. She has an appointment to see Dr. Somers, her money market dealer, today which she was instructed to follow. She had an appointment to see me today as well but she felt with COVID she may postpone that for a week. Should she have any other problems she is to let us know. She is to continue a fluid restriction p.o. at 2,000 cc fluid restriction per day and she may have little salt intake otherwise.
[2020-07-16 08:03] VITALS: BP 153/78; PULSE 77; O2SAT 94
== END 2020-07-16 08:59 | disposition home or self-care (01) ==
LOC: ED 18:49 → MED SURG 23:47
PROVIDERS: ADMIT Family Medicine; ATTEND Family Medicine
DX: E87.1 Hypo-osmolality and hyponatremia (principal); I10 Essential (primary) hypertension; J44.9 Chronic obstructive pulmonary disease, unspecified; Z79.899 Other long term (current) drug therapy; Z20.828 Contact with and (suspected) exposure to other viral communicable diseases
CPT/HCPCS: 0241U; 36000; 36415; 80048; 80053; 81001; 84133; 84300; 85025; 96360; 99284; 83935; G0378

== ENCOUNTER 2020-10-12 09:14 | Day surgery (SDC) | payer OTHER ==
[~2020-10-12 09:14] MED LIST: ACETAZOLAMIDE 250 MG TABLET PO ONE; Ak-Dilate OPHTHALMIC*** 1.065 ML, Cyclogyl 1% OPHTH SOL 5 ML 1.065 ML, GATIFLOXACIN 0.5... OP ONE; BETADINE 5% OPHTHALMIC 30 ML OP ONE; Lactated Ringers 1,000 ML IV SCH; NON-FORMULARY ITEM OP ONE; TETRACAINE 0.5% STERI-UNIT SOL OP ONE; Zofran 4 MG/2 ML VIAL IV PRN; cefUROXime sodium 0.005 GM in Sodium Chloride Flush 30 ML*** 0.5 ML IJ SCH
[2020-10-12] MEDS ORDERED: LIDOCAINE HCL 1% 50 MG/5 ML VL PF IJ ONE (09:15)
[2020-10-12] MEDS ORDERED: Epinephrine Preservative Free 1 MG/ML IJ ONE (09:15)
[2020-10-12] MEDS ORDERED: Lactated Ringers 1,000 ML IV ONE (09:42)
[2020-10-12] MEDS: TETRACAINE 0.5% STERI-UNIT SOL OP ONE ×2 (10:18→10:50)
[2020-10-12] MEDS ORDERED: Xylocaine-Mpf 2% 5 Ml Vial ONE (10:38)
[2020-10-12] MEDS ORDERED: DIPRIVAN 200 MG/20 ML IV ONE ×2 (10:38→11:35)
[2020-10-12] MEDS ORDERED: ROBINUL ONE (10:38)
[2020-10-12 12:26] VITALS: O2SAT 98
[2020-10-12 12:35] VITALS: BP 146/80; PULSE 85
== END 2020-10-12 12:42 | disposition home or self-care (01) ==
LOC: SDC 09:14
PROVIDERS: ATTEND Ophthalmology
DX: H25.811 Combined forms of age-related cataract, right eye (principal); Z79.899 Other long term (current) drug therapy
CPT/HCPCS: C1780; J0171; J2001; J2704; A9270-GY

== ENCOUNTER 2020-12-14 08:06 | Day surgery (SDC) | payer OTHER ==
[~2020-12-14 08:06] MED LIST changes: -ACETAZOLAMIDE 250 MG TABLET PO ONE; -Zofran 4 MG/2 ML VIAL IV PRN
[2020-12-14] MEDS ORDERED: Epinephrine Preservative Free 1 MG/ML IJ ONE (08:07)
[2020-12-14] MEDS ORDERED: LIDOCAINE HCL 1% 50 MG/5 ML VL PF IJ ONE (08:07)
[2020-12-14] MEDS ORDERED: Lactated Ringers 1,000 ML IV ONE (08:57)
[2020-12-14] MEDS ORDERED: Zofran 4 MG/2 ML VIAL IV PRN (09:00)
[2020-12-14] MEDS ORDERED: ACETAZOLAMIDE 250 MG TABLET PO ONE (09:00)
[2020-12-14] MEDS ORDERED: Xylocaine-Mpf 2% 5 Ml Vial ONE (11:17)
[2020-12-14] MEDS ORDERED: DIPRIVAN 200 MG/20 ML IV ONE (11:17)
[2020-12-14] MEDS ORDERED: SUBLIMAZE 100 MCG/2 ML ONE (11:17)
[2020-12-14] MEDS ORDERED: Versed 2 MG/2 ML Injection ONE (11:18)
[2020-12-14] MEDS ORDERED: ROBINUL ONE (11:18)
[2020-12-14 12:03] VITALS: PULSE 85
[2020-12-14 12:29] VITALS: BP 119/69; O2SAT 96
== END 2020-12-14 12:45 | disposition home or self-care (01) ==
LOC: SDC 08:06
PROVIDERS: ATTEND Ophthalmology
DX: H25.812 Combined forms of age-related cataract, left eye (principal); Z79.899 Other long term (current) drug therapy
CPT/HCPCS: C1780; J0171; J2001; J2250; J2704; J3010; A9270-GY